=== PATIENT | female | born 1960 | race African-American/Black ===

== ENCOUNTER 2021-01-09 09:46 | Observation (INO) | payer OTHER ==
[2021-01-09 10:02] VITALS: BMI 25.9
[2021-01-09 10:50] LABS: BASO % 0.3 % (0-2.0); EOS % 0.4 % (0-4.5); HEMATOCRIT 28.6 % (32.4-45.2); HEMOGLOBIN 9.5 GM/dL (10.7-15.3); LYMPH % 14.9 % (8-40); MCH 26.3 pg (25.7-33.7); MCHC 33.3 g/dl (32.0-36.0); MEAN PLT VOLUME 8.6 fl (7.5-11.1); MONO % 13.5 % (3.8-10.2); NEUT % 70.9 % (42.8-82.8); PLATELET COUNT 185 10^3/uL (134-434); RBC 3.63 M/mm3 (3.60-5.2); RDW 15.5 % (11.6-15.6); WHITE BLOOD COUNT 4.5 K/mm3 (4.0-10.0)
[2021-01-09 10:57] LABS: PROTHROMBIN TIME (PATIENT) 12.3 SEC (9.7-13.0)
[2021-01-09 10:59] LABS: ACTIVATED PTT 27.4 SECONDS (25.2-36.5)
[2021-01-09 11:12] LABS: ALBUMIN 3.1 g/dl (3.4-5.0); BLOOD UREA NITROGEN 17.7 mg/dL (7-18); CALCIUM 9.2 mg/dL (8.5-10.1)
[2021-01-09 11:15] LABS: CREATININE 0.9 mg/dL (0.55-1.3)
[2021-01-09 11:17] LABS: BILIRUBIN,TOTAL 0.5 mg/dL (0.2-1)
[2021-01-09 13:54] LABS: EPI CELLS 6 /uL (0-25.1); HYALINE CASTS 1 /uL (0-3.1); PH,URINE 6.5 (5.0-8.0); URINE APPEARANCE CLEAR; URINE BACTERIA 47 /uL (0-1359); URINE BILIRUBIN NEGATIVE (NEGATIVE); URINE COLOR YELLOW; URINE GLUCOSE (UA) NEGATIVE (NEGATIVE); URINE KETONE TRACE (NEGATIVE); URINE LEUK ESTERASE NEGATIVE (NEGATIVE); URINE NITRITE NEGATIVE (NEGATIVE); URINE PROTEIN 2+ (NEGATIVE); URINE RBC 54 /uL (0-23.9); URINE UROBILINOGEN 0.2 mg/dL (0.2-1.0); URINE WBC 5 /uL (0-25.8)
[2021-01-09] MEDS ORDERED: ACETAMINOPHEN 325 MG TABLET (FP) PO PRN (14:20)
[2021-01-09] MEDS ORDERED: PT OWN MED DRAWER 7, Y5N ONE (21:03)
[2021-01-09] MEDS ORDERED: ATORVASTATIN CA 20 MG TABLET (FP) PO SCH (22:00)
[2021-01-09] MEDS: CARVEDILOL 25 MG TABLET (FP) PO SCH (22:02)
[2021-01-09] MEDS: HALOPERIDOL 5 MG TABLET PO SCH (22:02)
[2021-01-09] MEDS: cloNIDine HCL 0.1 MG TABLET PO SCH (22:02)
[2021-01-10] MEDS ORDERED: PT OWN MED DRAWER 7, Y5N ONE (08:44)
[2021-01-10] MEDS ORDERED: amLODIPine BESYLATE 5 MG TABLET (FP) PO SCH (10:00)
[2021-01-10] MEDS ORDERED: FAMOTIDINE 20 MG TABLET PO SCH (10:00)
[2021-01-10 10:10] LABS: SARS-CoV-2 NAA Detected (Not Detected)
[2021-01-10] MEDS: cloNIDine HCL 0.1 MG TABLET PO SCH (10:44)
[2021-01-10] MEDS: HALOPERIDOL 5 MG TABLET PO SCH (10:45)
[2021-01-10] MEDS: CARVEDILOL 25 MG TABLET (FP) PO SCH (10:45)
[2021-01-10 18:44] VITALS: BP 117/70; PULSE 99; TEMP 97.3
== END 2021-01-10 19:23 ==
LOC: JER 09:46 → JERBED 13:57 → J4W 15:26
PROVIDERS: ADMIT Internal Medicine; ATTEND Internal Medicine
DX: R40.4 Transient alteration of awareness (principal); I10 Essential (primary) hypertension; D50.9 Iron deficiency anemia, unspecified; Z79.01 Long term (current) use of anticoagulants; R47.1 Dysarthria and anarthria; G81.90 Hemiplegia, unspecified affecting unspecified side; W18.30XA Fall on same level, unspecified, initial encounter; Z91.81 History of falling; Y93.9 Activity, unspecified; Y92.129 Unspecified place in nursing home as the place of occurrence of the external cause; U07.1 COVID-19
CPT/HCPCS: 36415; 70450-TC; 71045-TC-FY; 72125-TC; 80053; 81003; 82962; 83605; 84484; 85025; 85610; 85730; 86769; 87040; 87086; 93005; 93010; 99285-25; C9803; G0378; J0735; U0003; U0005

== ENCOUNTER 2021-01-23 12:44 | Inpatient (IN) | payer OTHER ==
[2021-01-23] MEDS ORDERED: SODIUM CHLORIDE 1,932 ML IV ONE (13:18)
[2021-01-23] MEDS ORDERED: ACETAMINOPHEN 1000 MG/100 ML VIAL (NON FORMULARY) IVPB ONE (13:20)
[2021-01-23] MEDS ORDERED: PIPERACILLIN/TAZOB 4.5 GM 4.5 GM in DEXTROSE 5%-WATER 100 ML IVPB ONE (13:20)
[2021-01-23] MEDS ORDERED: VANCOMYCIN 1 GM PREMIX - 1 GM/200 ML BAG IVPB ONE (13:20)
[2021-01-23 13:23] VITALS: BMI 25.9
[2021-01-23] MEDS ORDERED: ACETAMINOPHEN INJECTION 100 ML IVPB ONE (13:53)
[2021-01-23 14:00] LABS: VENOUS BASE EXCESS -6.3 mmol/L (-2-2); VENOUS O2 SATURATION 51.3 % (70-80); VENOUS PCO2 36.5 mmHg (38-52); VENOUS PH 7.333 (7.310-7.410)
[2021-01-23 14:01] LABS: BASO % 0.1 % (0-2.0); EOS % 0.8 % (0-4.5); HEMATOCRIT 29.1 % (32.4-45.2); HEMOGLOBIN 9.2 GM/dL (10.7-15.3); MCH 26.3 pg (25.7-33.7); MCHC 31.8 g/dl (32.0-36.0); MEAN CELL VOLUME 82.6 fl (80-96); MEAN PLT VOLUME 8.6 fl (7.5-11.1); MONO % 5.5 % (3.8-10.2); NEUT % 85.6 % (42.8-82.8); PLATELET COUNT 270 10^3/uL (134-434); RBC 3.52 M/mm3 (3.60-5.2); RDW 16.5 % (11.6-15.6); WHITE BLOOD COUNT 8.1 K/mm3 (4.0-10.0)
[2021-01-23 14:05] LABS: INR 1.35 (0.83-1.09); PROTHROMBIN TIME (PATIENT) 16.5 SEC (9.7-13.0)
[2021-01-23 14:08] LABS: ACTIVATED PTT 28.6 SECONDS (25.2-36.5)
[2021-01-23 14:18] LABS: CHLORIDE 135 mmol/L (98-107)
[2021-01-23 14:20] LABS: CALCIUM 9.9 mg/dL (8.5-10.1)
[2021-01-23 14:21] LABS: ALBUMIN 2.5 g/dl (3.4-5.0); BLOOD UREA NITROGEN 42.2 mg/dL (7-18); CO2 20 mmol/L (21-32); GLUCOSE,RANDOM 153 mg/dL (74-106)
[2021-01-23 14:24] LABS: CREATININE 1.5 mg/dL (0.55-1.3); SGOT/AST 50 U/L (15-37); SGPT/ALT 45 U/L (13-61)
[2021-01-23 14:25] LABS: BILIRUBIN,TOTAL 0.5 mg/dL (0.2-1); TOT PROT 8.2 g/dl (6.4-8.2)
[2021-01-23 14:27] LABS: ALK PHOS 96 U/L (45-117)
[2021-01-23 14:38] LABS: ANION GAP 7 MMOL/L (8-16); SODIUM 162 mmol/L (136-145)
[2021-01-23] MEDS ORDERED: PIPERACILLIN/TAZOB 4.5 GM 4.5 GM/100 ML BAG IVPB ONE (14:43)
[2021-01-23] MEDS ORDERED: VANCOMYCIN 1 GRAM (PRE-DOCKED) 1,000 MG/250 ML BAG IVPB ONE (14:43)
[2021-01-23 15:27] LABS: PH,URINE 5.5 (5.0-8.0); URINE APPEARANCE CLEAR; URINE BILIRUBIN NEGATIVE (NEGATIVE); URINE COLOR YELLOW; URINE GLUCOSE (UA) NEGATIVE (NEGATIVE); URINE KETONE NEGATIVE (NEGATIVE); URINE LEUK ESTERASE NEGATIVE (NEGATIVE); URINE NITRITE NEGATIVE (NEGATIVE); URINE PROTEIN TRACE (NEGATIVE); URINE UROBILINOGEN 0.2 mg/dL (0.2-1.0)
[2021-01-23 17:40] LABS: CHLORIDE 139 mmol/L (98-107)
[2021-01-23 17:42] LABS: BLOOD UREA NITROGEN 39.4 mg/dL (7-18); CO2 18 mmol/L (21-32); MAGNESIUM 2.6 mg/dL (1.8-2.4)
[2021-01-23 17:43] LABS: GLUCOSE,RANDOM 160 mg/dL (74-106)
[2021-01-23 17:46] LABS: CREATININE 1.3 mg/dL (0.55-1.3); PHOSPHOROUS 3.5 mg/dL (2.5-4.9)
[2021-01-23 17:52] LABS: ANION GAP 6 MMOL/L (8-16); CALCIUM 8.3 mg/dL (8.5-10.1); SODIUM 163 mmol/L (136-145)
[2021-01-23] MEDS ORDERED: SODIUM CHLORIDE 0.45% 1,000 ML IV SCH (18:15)
[2021-01-23] MEDS ORDERED: BISACODYL 10 MG SUPP.RECT RC PRN (20:50)
[2021-01-23] MEDS ORDERED: ACETAMINOPHEN 325 MG TABLET (FP) PO PRN (20:50)
[2021-01-23] MEDS: CARVEDILOL 25 MG TABLET (FP) PO SCH (22:23)
[2021-01-23] MEDS: cloNIDine HCL 0.1 MG TABLET PO SCH (22:23)
[2021-01-23] MEDS: DOCUSATE SODIUM 100 MG CAPSULE (FP) PO SCH (22:23)
[2021-01-23] MEDS: HEPARIN NA (PORCINE) 5,000 UNITS/ML 1ML VIAL SQ SCH (22:23)
[2021-01-23] MEDS: HALOPERIDOL 5 MG TABLET PO SCH (22:23)
[2021-01-23] MEDS: ATORVASTATIN CA 20 MG TABLET (FP) PO SCH (22:24)
[2021-01-24 08:13] LABS: BASO % 0.3 % (0-2.0); EOS % 1.7 % (0-4.5); HEMATOCRIT 28.1 % (32.4-45.2); LYMPH % 6.4 % (8-40); MCH 25.9 pg (25.7-33.7); MCHC 32.1 g/dl (32.0-36.0); MEAN CELL VOLUME 80.8 fl (80-96); MEAN PLT VOLUME 8.5 fl (7.5-11.1); MONO % 4.4 % (3.8-10.2); NEUT % 87.2 % (42.8-82.8); PLATELET COUNT 242 10^3/uL (134-434); RBC 3.48 M/mm3 (3.60-5.2); RDW 16.6 % (11.6-15.6)
[2021-01-24 08:27] LABS: CHLORIDE 136 mmol/L (98-107)
[2021-01-24 08:29] LABS: ALBUMIN 2.4 g/dl (3.4-5.0)
[2021-01-24 08:30] LABS: BLOOD UREA NITROGEN 32.8 mg/dL (7-18); CO2 20 mmol/L (21-32); GLUCOSE,RANDOM 117 mg/dL (74-106)
[2021-01-24 08:33] LABS: SGOT/AST 38 U/L (15-37); SGPT/ALT 35 U/L (13-61)
[2021-01-24 08:34] LABS: BILIRUBIN,TOTAL 0.5 mg/dL (0.2-1); TOT PROT 7.5 g/dl (6.4-8.2)
[2021-01-24 08:35] LABS: ALK PHOS 85 U/L (45-117)
[2021-01-24 08:37] LABS: ANION GAP 5 MMOL/L (8-16); CALCIUM 9.8 mg/dL (8.5-10.1); SODIUM 161 mmol/L (136-145)
[2021-01-24] MEDS: ASPIRIN 81 MG CHEWABLE TABLETS PO SCH (10:53)
[2021-01-24] MEDS: FOLIC ACID 1 MG TABLET (FP) PO SCH (10:54)
[2021-01-24] MEDS: cloNIDine HCL 0.1 MG TABLET PO SCH (10:54)
[2021-01-24] MEDS: FAMOTIDINE 20 MG TABLET PO SCH (10:54)
[2021-01-24] MEDS: FERROUS SO4 325 MG TABLET (FP) PO SCH (10:54)
[2021-01-24] MEDS: MELATONIN 5 MG TABLETS PO SCH (10:54)
[2021-01-24] MEDS: amLODIPine BESYLATE 5 MG TABLET (FP) PO SCH (10:54)
[2021-01-24] MEDS: POLYETHYLENE GLYCOL (HEALTHYLAX) 3350 17 GM PACKET PO SCH (10:54)
[2021-01-24] MEDS: CYANOCOBALAMIN 1,000 MCG TABLET (FP) PO SCH (10:54)
[2021-01-24] MEDS: HALOPERIDOL 5 MG TABLET PO SCH ×2 (10:54→21:33)
[2021-01-24] MEDS: SENNOSIDES 8.8 MG/5 ML BULK BOTTLE PO SCH (10:54)
[2021-01-24] MEDS: CARVEDILOL 25 MG TABLET (FP) PO SCH ×2 (10:54→21:33)
[2021-01-24] MEDS: ASCORBIC ACID 500 MG TABLET (FP) PO SCH (10:55)
[2021-01-24] MEDS: HEPARIN NA (PORCINE) 5,000 UNITS/ML 1ML VIAL SQ SCH ×2 (11:11→21:34)
[2021-01-24] MEDS: DEXTROSE 5%-WATER - 1,000 ML IV SCH (11:38)
[2021-01-24] MEDS ORDERED: ACETAMINOPHEN 1000 MG/100 ML VIAL (NON FORMULARY) IVPB PRN (13:04)
[2021-01-24] MEDS ORDERED: CEFEPIME HCL 1 GM VIAL (RESTRICTED TO ID) ONE (17:08)
[2021-01-24] MEDS ORDERED: DEXTROSE 5%-WATER - 50 ML IVPB ONE (17:09)
[2021-01-24] MEDS: CEFEPIME 1 GM in DEXTROSE 5%-WATER - 1 GM/50 ML IVPB IVPB SCH (17:16)
[2021-01-24] MEDS ORDERED: PIPERACILLIN/TAZOB 3.375 GM 3.375 GM in DEXTROSE 5%-WATER - 50 ML IVPB SCH (18:00)
[2021-01-24] MEDS: cloNIDine-TTS 0.3 MG /24 HRS PATCH.TDWK TD SCH (21:33)
[2021-01-24] MEDS: DOCUSATE SODIUM 100 MG CAPSULE (FP) PO SCH (21:33)
[2021-01-24] MEDS: ATORVASTATIN CA 20 MG TABLET (FP) PO SCH (21:34)
[2021-01-25] MEDS ORDERED: CEFEPIME HCL 1 GM VIAL (RESTRICTED TO ID) ONE ×3 (01:11→17:18)
[2021-01-25] MEDS ORDERED: DEXTROSE 5%-WATER - 50 ML IVPB ONE ×3 (01:11→17:18)
[2021-01-25] MEDS: CEFEPIME 1 GM in DEXTROSE 5%-WATER - 1 GM/50 ML IVPB IVPB SCH ×3 (01:16→17:58)
[2021-01-25 10:04] LABS: CALCIUM 9.5 mg/dL (8.5-10.1)
[2021-01-25 10:05] LABS: ALBUMIN 2.2 g/dl (3.4-5.0); BLOOD UREA NITROGEN 36.9 mg/dL (7-18)
[2021-01-25 10:07] LABS: CREATININE 1.2 mg/dL (0.55-1.3)
[2021-01-25 10:09] LABS: BILIRUBIN,TOTAL 0.4 mg/dL (0.2-1); TOT PROT 7.2 g/dl (6.4-8.2)
[2021-01-25] MEDS: HEPARIN NA (PORCINE) 5,000 UNITS/ML 1ML VIAL SQ SCH (10:39)
[2021-01-25] MEDS: DEXTROSE 5%-WATER - 1,000 ML IV SCH (10:40)
[2021-01-25] MEDS: ASPIRIN 81 MG CHEWABLE TABLETS PO SCH (11:18)
[2021-01-25] MEDS: CARVEDILOL 25 MG TABLET (FP) PO SCH ×2 (11:18→22:19)
[2021-01-25] MEDS: FERROUS SO4 325 MG TABLET (FP) PO SCH (11:18)
[2021-01-25] MEDS: HALOPERIDOL 5 MG TABLET PO SCH ×2 (11:19→22:19)
[2021-01-25] MEDS: amLODIPine BESYLATE 5 MG TABLET (FP) PO SCH (11:19)
[2021-01-25] MEDS: FOLIC ACID 1 MG TABLET (FP) PO SCH (11:19)
[2021-01-25] MEDS: FAMOTIDINE 20 MG TABLET PO SCH (11:19)
[2021-01-25] MEDS: POLYETHYLENE GLYCOL (HEALTHYLAX) 3350 17 GM PACKET PO SCH (11:19)
[2021-01-25] MEDS: SENNOSIDES 8.8 MG/5 ML BULK BOTTLE PO SCH (11:19)
[2021-01-25] MEDS: MELATONIN 5 MG TABLETS PO SCH (11:19)
[2021-01-25] MEDS: ASCORBIC ACID 500 MG TABLET (FP) PO SCH (11:20)
[2021-01-25] MEDS: CYANOCOBALAMIN 1,000 MCG TABLET (FP) PO SCH (11:20)
[2021-01-25] MEDS ORDERED: REMDESIVIR 200 MG in SODIUM CHLORIDE 250 ML IVPB ONE (13:00)
[2021-01-25] MEDS: ENOXAPARIN NA (PORCINE) 40 MG/0.4 ML DISP.SYRIN SQ SCH (13:10)
[2021-01-25] MEDS: DEXAMETHASONE SOD PHOSPHATE 4 MG/1 ML VIAL IVPUSH SCH (13:10)
[2021-01-25] MEDS: POTASSIUM CHLORIDE 10 MEQ in DEXTROSE 5%-WATER - 1,000 ML IV SCH (17:57)
[2021-01-25] MEDS ORDERED: hydrALAZINE HCL 20 MG/ML VIAL IVPUSH PRN (18:25)
[2021-01-25] MEDS: hydrALAZINE HCL 20 MG/ML VIAL IVPUSH PRN (18:45)
[2021-01-25] MEDS: DOCUSATE SODIUM 100 MG CAPSULE (FP) PO SCH (22:19)
[2021-01-25] MEDS: ATORVASTATIN CA 20 MG TABLET (FP) PO SCH (22:19)
[2021-01-26] MEDS ORDERED: CEFEPIME HCL 1 GM VIAL (RESTRICTED TO ID) ONE ×3 (01:14→16:25)
[2021-01-26] MEDS ORDERED: DEXTROSE 5%-WATER - 50 ML IVPB ONE ×3 (01:14→16:25)
[2021-01-26] MEDS: CEFEPIME 1 GM in DEXTROSE 5%-WATER - 1 GM/50 ML IVPB IVPB SCH ×3 (01:30→17:10)
[2021-01-26] MEDS: POTASSIUM CHLORIDE 10 MEQ in DEXTROSE 5%-WATER - 1,000 ML IV SCH (06:15)
[2021-01-26] MEDS ORDERED: PT OWN MED DRAWER 7, Y5N ONE (10:27)
[2021-01-26] MEDS: DEXAMETHASONE SOD PHOSPHATE 4 MG/1 ML VIAL IVPUSH SCH (10:38)
[2021-01-26] MEDS: ENOXAPARIN NA (PORCINE) 40 MG/0.4 ML DISP.SYRIN SQ SCH (10:38)
[2021-01-26] MEDS: FOLIC ACID 1 MG TABLET (FP) PO SCH (10:47)
[2021-01-26] MEDS: FERROUS SO4 325 MG TABLET (FP) PO SCH (10:47)
[2021-01-26] MEDS: CARVEDILOL 25 MG TABLET (FP) PO SCH ×2 (10:47→22:44)
[2021-01-26] MEDS: ERGOCALCIFEROL (VIT D2) 50,000 UNIT (1.25 MG) CAPSULE PO SCH (10:47)
[2021-01-26] MEDS: ASPIRIN 81 MG CHEWABLE TABLETS PO SCH (10:47)
[2021-01-26] MEDS: ASCORBIC ACID 500 MG TABLET (FP) PO SCH (10:48)
[2021-01-26] MEDS: amLODIPine BESYLATE 5 MG TABLET (FP) PO SCH (10:48)
[2021-01-26] MEDS: FAMOTIDINE 20 MG TABLET PO SCH (10:48)
[2021-01-26] MEDS: POLYETHYLENE GLYCOL (HEALTHYLAX) 3350 17 GM PACKET PO SCH (10:48)
[2021-01-26] MEDS: HALOPERIDOL 5 MG TABLET PO SCH ×2 (10:48→22:44)
[2021-01-26] MEDS: CYANOCOBALAMIN 1,000 MCG TABLET (FP) PO SCH (10:48)
[2021-01-26] MEDS: SENNOSIDES 8.8 MG/5 ML BULK BOTTLE PO SCH (10:48)
[2021-01-26] MEDS: MELATONIN 5 MG TABLETS PO SCH (10:48)
[2021-01-26] MEDS: REMDESIVIR 100 MG in SODIUM CHLORIDE 250 ML IVPB SCH (12:17)
[2021-01-26 12:25] LABS: BASO % 1.1 % (0-2.0); EOS % 0.2 % (0-4.5); HEMATOCRIT 25.7 % (32.4-45.2); HEMOGLOBIN 8.3 GM/dL (10.7-15.3); LYMPH % 10.8 % (8-40); MCHC 32.2 g/dl (32.0-36.0); MEAN CELL VOLUME 80.7 fl (80-96); MEAN PLT VOLUME 9.2 fl (7.5-11.1); MONO % 4.8 % (3.8-10.2); NEUT % 83.1 % (42.8-82.8); PLATELET COUNT 208 10^3/uL (134-434); RBC 3.18 M/mm3 (3.60-5.2); RDW 16.4 % (11.6-15.6); WHITE BLOOD COUNT 3.3 K/mm3 (4.0-10.0)
[2021-01-26 12:44] LABS: ALBUMIN 2.2 g/dl (3.4-5.0); BLOOD UREA NITROGEN 41.4 mg/dL (7-18); CALCIUM 9.4 mg/dL (8.5-10.1)
[2021-01-26 12:45] LABS: MAGNESIUM 2.5 mg/dL (1.8-2.4)
[2021-01-26 12:47] LABS: CREATININE 1.1 mg/dL (0.55-1.3)
[2021-01-26 12:48] LABS: PHOSPHOROUS 2.9 mg/dL (2.5-4.9)
[2021-01-26 12:49] LABS: BILIRUBIN,TOTAL 0.5 mg/dL (0.2-1); TOT PROT 7.2 g/dl (6.4-8.2)
[2021-01-26] MEDS: AMINO ACIDS 4.25%/D5W 1,000 ML IV SCH (14:08)
[2021-01-26] MEDS: DOCUSATE SODIUM 100 MG CAPSULE (FP) PO SCH (22:00)
[2021-01-26] MEDS ORDERED: FAT EMULSIONS 20% 250 ML PREMIX INFUS.BAG IV SCH (22:00)
[2021-01-26] MEDS: ATORVASTATIN CA 20 MG TABLET (FP) PO SCH (22:45)
[2021-01-27] MEDS ORDERED: PT OWN MED DRAWER 7, Y5N ONE ×2 (01:17→08:44)
[2021-01-27] MEDS ORDERED: DEXTROSE 5%-WATER - 50 ML IVPB ONE ×3 (01:17→12:54)
[2021-01-27] MEDS ORDERED: CEFEPIME HCL 1 GM VIAL (RESTRICTED TO ID) ONE ×3 (01:17→12:54)
[2021-01-27] MEDS: AMINO ACIDS 4.25%/D5W 1,000 ML IV SCH ×2 (01:39→13:12)
[2021-01-27] MEDS: CEFEPIME 1 GM in DEXTROSE 5%-WATER - 1 GM/50 ML IVPB IVPB SCH ×3 (02:00→17:02)
[2021-01-27] MEDS: FAT EMULSIONS 250 ML IV SCH ×2 (02:21→21:56)
[2021-01-27 08:16] LABS: EOS % 0.5 % (0-4.5); LYMPH % 7.5 % (8-40); MCH 26.2 pg (25.7-33.7); MEAN CELL VOLUME 82.1 fl (80-96); MEAN PLT VOLUME 9.7 fl (7.5-11.1); MONO % 7.4 % (3.8-10.2); NEUT % 84.6 % (42.8-82.8); PLATELET COUNT 220 10^3/uL (134-434); RBC 3.04 M/mm3 (3.60-5.2); RDW 16.4 % (11.6-15.6); WHITE BLOOD COUNT 5.6 K/mm3 (4.0-10.0)
[2021-01-27 08:18] LABS: ALBUMIN 2.1 g/dl (3.4-5.0); BLOOD UREA NITROGEN 60.4 mg/dL (7-18); CALCIUM 9.1 mg/dL (8.5-10.1)
[2021-01-27 08:23] LABS: BILIRUBIN,TOTAL 0.3 mg/dL (0.2-1); TOT PROT 6.8 g/dl (6.4-8.2)
[2021-01-27] MEDS: ASPIRIN 81 MG CHEWABLE TABLETS PO SCH (09:16)
[2021-01-27] MEDS: CARVEDILOL 25 MG TABLET (FP) PO SCH ×2 (09:17→21:55)
[2021-01-27] MEDS: DEXAMETHASONE SOD PHOSPHATE 4 MG/1 ML VIAL IVPUSH SCH (09:17)
[2021-01-27] MEDS: HALOPERIDOL 5 MG TABLET PO SCH ×2 (09:17→21:56)
[2021-01-27] MEDS: FERROUS SO4 325 MG TABLET (FP) PO SCH (09:17)
[2021-01-27] MEDS: ENOXAPARIN NA (PORCINE) 40 MG/0.4 ML DISP.SYRIN SQ SCH (09:17)
[2021-01-27] MEDS: FOLIC ACID 1 MG TABLET (FP) PO SCH (09:17)
[2021-01-27] MEDS: POLYETHYLENE GLYCOL (HEALTHYLAX) 3350 17 GM PACKET PO SCH (09:17)
[2021-01-27] MEDS: FAMOTIDINE 20 MG TABLET PO SCH (09:18)
[2021-01-27] MEDS: SENNOSIDES 8.8 MG/5 ML BULK BOTTLE PO SCH (09:18)
[2021-01-27] MEDS: MELATONIN 5 MG TABLETS PO SCH (09:18)
[2021-01-27] MEDS: CYANOCOBALAMIN 1,000 MCG TABLET (FP) PO SCH (09:18)
[2021-01-27] MEDS: ASCORBIC ACID 500 MG TABLET (FP) PO SCH (09:18)
[2021-01-27] MEDS: amLODIPine BESYLATE 5 MG TABLET (FP) PO SCH (09:18)
[2021-01-27] MEDS: REMDESIVIR 100 MG in SODIUM CHLORIDE 250 ML IVPB SCH (13:12)
[2021-01-27] MEDS: hydrALAZINE HCL 20 MG/ML VIAL IVPUSH PRN ×2 (13:13→21:54)
[2021-01-27] MEDS: INSULIN SLIDING SCALE (NOVOLOG) 1 VIAL SQ SCH (16:19)
[2021-01-27] MEDS ORDERED: HALOPERIDOL LACTATE 5 MG/ML IM ONE (17:00)
[2021-01-27] MEDS ORDERED: HALOPERIDOL LACTATE 5 MG/ML ONE (17:13)
[2021-01-27] MEDS: DOCUSATE SODIUM 100 MG CAPSULE (FP) PO SCH (21:55)
[2021-01-27] MEDS: ATORVASTATIN CA 20 MG TABLET (FP) PO SCH (21:56)
[2021-01-28] MEDS ORDERED: CEFEPIME HCL 1 GM VIAL (RESTRICTED TO ID) ONE ×3 (01:03→17:32)
[2021-01-28] MEDS ORDERED: DEXTROSE 5%-WATER - 50 ML IVPB ONE ×3 (01:03→17:33)
[2021-01-28] MEDS: CEFEPIME 1 GM in DEXTROSE 5%-WATER - 1 GM/50 ML IVPB IVPB SCH ×3 (01:09→17:35)
[2021-01-28] MEDS: AMINO ACIDS 4.25%/D5W 1,000 ML IV SCH ×2 (01:09→15:12)
[2021-01-28] MEDS: INSULIN SLIDING SCALE (NOVOLOG) 1 VIAL SQ SCH ×2 (06:16→17:49)
[2021-01-28] MEDS: INSULIN (LEVEMIR) 100 UNITS/ML UNITS SQ SCH ×2 (11:00→11:13)
[2021-01-28] MEDS: ASPIRIN 81 MG CHEWABLE TABLETS PO SCH ×2 (11:00→11:11)
[2021-01-28] MEDS: CARVEDILOL 25 MG TABLET (FP) PO SCH ×3 (11:00→21:53)
[2021-01-28] MEDS: amLODIPine BESYLATE 5 MG TABLET (FP) PO SCH ×2 (11:00→11:12)
[2021-01-28] MEDS: FAMOTIDINE 20 MG TABLET PO SCH ×2 (11:00→11:12)
[2021-01-28] MEDS: HALOPERIDOL 5 MG TABLET PO SCH ×3 (11:00→21:54)
[2021-01-28] MEDS: FERROUS SO4 325 MG TABLET (FP) PO SCH ×2 (11:00→11:14)
[2021-01-28] MEDS: FOLIC ACID 1 MG TABLET (FP) PO SCH ×2 (11:00→11:11)
[2021-01-28] MEDS: POLYETHYLENE GLYCOL (HEALTHYLAX) 3350 17 GM PACKET PO SCH ×2 (11:00→11:12)
[2021-01-28] MEDS ORDERED: PT OWN MED DRAWER 7, Y5N ONE (11:02)
[2021-01-28] MEDS: DEXAMETHASONE SOD PHOSPHATE 4 MG/1 ML VIAL IVPUSH SCH (11:10)
[2021-01-28] MEDS: SENNOSIDES 8.8 MG/5 ML BULK BOTTLE PO SCH ×2 (11:10→13:23)
[2021-01-28] MEDS: ENOXAPARIN NA (PORCINE) 40 MG/0.4 ML DISP.SYRIN SQ SCH (11:11)
[2021-01-28] MEDS: CYANOCOBALAMIN 1,000 MCG TABLET (FP) PO SCH ×2 (11:11→13:23)
[2021-01-28] MEDS: ASCORBIC ACID 500 MG TABLET (FP) PO SCH ×2 (11:11→13:23)
[2021-01-28] MEDS: MELATONIN 5 MG TABLETS PO SCH (11:40)
[2021-01-28] MEDS: REMDESIVIR 100 MG in SODIUM CHLORIDE 250 ML IVPB SCH (13:17)
[2021-01-28] MEDS: hydrALAZINE HCL 20 MG/ML VIAL IVPUSH PRN (15:12)
[2021-01-28] MEDS ORDERED: SODIUM CHLORIDE 0.45%/POT 20 MEQ/1,000 ML INFUS.BAG IV SCH (16:15)
[2021-01-28] MEDS: DOCUSATE SODIUM 100 MG CAPSULE (FP) PO SCH (21:53)
[2021-01-28] MEDS: ATORVASTATIN CA 20 MG TABLET (FP) PO SCH (21:54)
[2021-01-28] MEDS: FAT EMULSIONS 250 ML IV SCH (21:54)
[2021-01-28] MEDS: HALOPERIDOL LACTATE 5 MG/ML IM PRN (21:55)
[2021-01-29] MEDS ORDERED: DEXTROSE 5%-WATER - 50 ML IVPB ONE ×3 (00:43→17:35)
[2021-01-29] MEDS ORDERED: CEFEPIME HCL 1 GM VIAL (RESTRICTED TO ID) ONE ×3 (00:43→17:35)
[2021-01-29] MEDS: CEFEPIME 1 GM in DEXTROSE 5%-WATER - 1 GM/50 ML IVPB IVPB SCH ×3 (01:30→17:37)
[2021-01-29] MEDS: hydrALAZINE HCL 20 MG/ML VIAL IVPUSH PRN ×2 (01:30→11:15)
[2021-01-29] MEDS: AMINO ACIDS 4.25%/D5W 1,000 ML IV SCH (01:30)
[2021-01-29] MEDS: INSULIN SLIDING SCALE (NOVOLOG) 1 VIAL SQ SCH ×2 (06:38→17:06)
[2021-01-29] MEDS: INSULIN (LEVEMIR) 100 UNITS/ML UNITS SQ SCH ×2 (06:38→23:33)
[2021-01-29 10:22] LABS: BASO % 0.4 % (0-2.0); EOS % 0.3 % (0-4.5); HEMATOCRIT 28.4 % (32.4-45.2); HEMOGLOBIN 9.5 GM/dL (10.7-15.3); LYMPH % 3.8 % (8-40); MCH 26.6 pg (25.7-33.7); MCHC 33.3 g/dl (32.0-36.0); MEAN PLT VOLUME 9.6 fl (7.5-11.1); MONO % 4.7 % (3.8-10.2); NEUT % 90.8 % (42.8-82.8); PLATELET COUNT 269 10^3/uL (134-434); RBC 3.55 M/mm3 (3.60-5.2); RDW 16.9 % (11.6-15.6); WHITE BLOOD COUNT 14.2 K/mm3 (4.0-10.0)
[2021-01-29 10:42] LABS: CALCIUM 9.7 mg/dL (8.5-10.1)
[2021-01-29 10:43] LABS: ALBUMIN 2.4 g/dl (3.4-5.0); BLOOD UREA NITROGEN 66.7 mg/dL (7-18)
[2021-01-29 10:46] LABS: CREATININE 0.9 mg/dL (0.55-1.3)
[2021-01-29 10:47] LABS: BILIRUBIN,TOTAL 0.5 mg/dL (0.2-1)
[2021-01-29 10:53] LABS: TOT PROT 7.1 g/dl (6.4-8.2)
[2021-01-29] MEDS: HALOPERIDOL 5 MG TABLET PO SCH (11:10)
[2021-01-29] MEDS: POLYETHYLENE GLYCOL (HEALTHYLAX) 3350 17 GM PACKET PO SCH (11:10)
[2021-01-29] MEDS: FERROUS SO4 325 MG TABLET (FP) PO SCH (11:10)
[2021-01-29] MEDS: FOLIC ACID 1 MG TABLET (FP) PO SCH (11:10)
[2021-01-29] MEDS: ASPIRIN 81 MG CHEWABLE TABLETS PO SCH (11:10)
[2021-01-29] MEDS: CARVEDILOL 25 MG TABLET (FP) PO SCH (11:10)
[2021-01-29] MEDS: CYANOCOBALAMIN 1,000 MCG TABLET (FP) PO SCH (11:11)
[2021-01-29] MEDS: amLODIPine BESYLATE 5 MG TABLET (FP) PO SCH (11:11)
[2021-01-29] MEDS: FAMOTIDINE 20 MG TABLET PO SCH (11:11)
[2021-01-29] MEDS: SENNOSIDES 8.8 MG/5 ML BULK BOTTLE PO SCH (11:11)
[2021-01-29] MEDS: ASCORBIC ACID 500 MG TABLET (FP) PO SCH (11:11)
[2021-01-29] MEDS: ENOXAPARIN NA (PORCINE) 40 MG/0.4 ML DISP.SYRIN SQ SCH (11:15)
[2021-01-29] MEDS: DEXAMETHASONE SOD PHOSPHATE 4 MG/1 ML VIAL IVPUSH SCH (11:15)
[2021-01-29 11:42] LABS: ANISOCYTOSIS 0; HELMET CELLS 0; HOWELL-JOLLY BODIES 0; MACROCYTOSIS 0; OVALOCYTE 0; PLATELET ESTIMATE NORMAL; ROULEAU 0; SICKELED CELLS 0; TARGET CELLS 0; TEAR DROP CELLS 0; TOXIC GRANULATION 0
[2021-01-29] MEDS ORDERED: PT OWN MED DRAWER 7, Y5N ONE ×3 (11:57→23:00)
[2021-01-29] MEDS: HALOPERIDOL LACTATE 5 MG/ML IM PRN (11:59)
[2021-01-29] MEDS: REMDESIVIR 100 MG in SODIUM CHLORIDE 250 ML IVPB SCH (12:00)
[2021-01-29] MEDS ORDERED: ACETAMINOPHEN 1000 MG/100 ML VIAL (NON FORMULARY) IVPB PRN (13:49)
[2021-01-29] MEDS ORDERED: SODIUM BICARBONATE 8.4% 50 MEQ/50 ML DISP.SYRIN IVPUSH ONE (15:16)
[2021-01-29] MEDS ORDERED: AMINO ACIDS 4.25%/D5W 1,000 ML IV SCH (15:17)
[2021-01-29] MEDS ORDERED: SODIUM CHLORIDE 0.45% 1,000 ML with SODIUM BICARBONATE 8.4% - 75 MEQ IV SCH ×2 (15:30→16:46)
[2021-01-29] MEDS ORDERED: SODIUM BICARBONATE 8.4% 50 MEQ/50 ML VIAL ONE (16:07)
[2021-01-29] MEDS: POTASSIUM CHLORIDE 20 MEQ in AMINO ACIDS 4.25%/D5W 1,000 ML IV SCH (17:24)
[2021-01-29] MEDS ORDERED: amLODIPine BESYLATE 5 MG TABLET (FP) GT SCH (18:51)
[2021-01-29] MEDS ORDERED: SODIUM BICARBONATE 8.4% 50 MEQ/50 ML VIAL IVPUSH ONE (19:00)
[2021-01-29] MEDS ORDERED: FAT EMULSION/OLIVE/SOY/PHOSPHO 250 ML IV SCH (22:00)
[2021-01-29] MEDS ORDERED: INSULIN (LEVEMIR) 100 UNITS/ML UNITS SQ SCH (22:00)
[2021-01-29] MEDS: CARVEDILOL 25 MG TABLET (FP) NGT SCH (23:05)
[2021-01-29] MEDS: HALOPERIDOL 5 MG TABLET NGT SCH (23:06)
[2021-01-29] MEDS: DOCUSATE SODIUM 100 MG CAPSULE (FP) PO SCH (23:06)
[2021-01-30] MEDS: ATORVASTATIN CA 20 MG TABLET (FP) PO SCH (01:49)
[2021-01-30] MEDS ORDERED: DEXTROSE 5%-WATER - 50 ML IVPB ONE ×3 (01:52→17:04)
[2021-01-30] MEDS ORDERED: CEFEPIME HCL 1 GM VIAL (RESTRICTED TO ID) ONE ×3 (01:52→17:04)
[2021-01-30] MEDS: CEFEPIME 1 GM in DEXTROSE 5%-WATER - 1 GM/50 ML IVPB IVPB SCH ×3 (01:56→17:07)
[2021-01-30] MEDS: POTASSIUM CHLORIDE 20 MEQ in AMINO ACIDS 4.25%/D5W 1,000 ML IV SCH (03:59)
[2021-01-30] MEDS: INSULIN (LEVEMIR) 100 UNITS/ML UNITS SQ SCH ×2 (06:36→21:44)
[2021-01-30] MEDS: INSULIN SLIDING SCALE (NOVOLOG) 1 VIAL SQ SCH ×2 (06:36→17:56)
[2021-01-30 07:44] LABS: ALBUMIN 2.1 g/dl (3.4-5.0); CALCIUM 9.4 mg/dL (8.5-10.1)
[2021-01-30 07:47] LABS: CREATININE 0.9 mg/dL (0.55-1.3)
[2021-01-30 07:48] LABS: BILIRUBIN,TOTAL 0.6 mg/dL (0.2-1)
[2021-01-30] MEDS ORDERED: SODIUM BICARBONATE 8.4% 50 MEQ/50 ML DISP.SYRIN IVPUSH SCH (08:00)
[2021-01-30 08:46] LABS: BLOOD UREA NITROGEN 76.7 mg/dL (7-18); TOT PROT 6.2 g/dl (6.4-8.2)
[2021-01-30 09:21] LABS: ARTERIAL BLD GAS O2 SATURATION 93.6 % (95-98); ARTERIAL BLOOD GAS BASE EXCESS -12.4 mmol/L (-2-2); ARTERIAL BLOOD GAS PO2 70.3 mmHg (80-100); ARTERIAL BLOOD GAS pH 7.336 (7.350-7.450)
[2021-01-30 09:22] LABS: ALLENS TEST POSITIVE
[2021-01-30] MEDS ORDERED: PT OWN MED DRAWER 7, Y5N ONE ×3 (09:38→21:34)
[2021-01-30] MEDS: FOLIC ACID 1 MG TABLET (FP) NGT SCH (09:42)
[2021-01-30] MEDS: amLODIPine BESYLATE 5 MG TABLET (FP) NGT SCH (09:42)
[2021-01-30] MEDS: FERROUS SO4 325 MG TABLET (FP) PO SCH (09:42)
[2021-01-30] MEDS: CYANOCOBALAMIN 1,000 MCG TABLET (FP) NGT SCH (09:42)
[2021-01-30] MEDS: ASPIRIN 81 MG CHEWABLE TABLETS NGT SCH (09:42)
[2021-01-30] MEDS: CARVEDILOL 25 MG TABLET (FP) NGT SCH ×2 (09:42→21:44)
[2021-01-30] MEDS: SENNOSIDES 8.8 MG/5 ML BULK BOTTLE NGT SCH (09:43)
[2021-01-30] MEDS: HALOPERIDOL 5 MG TABLET NGT SCH ×2 (09:43→21:44)
[2021-01-30] MEDS: DEXAMETHASONE SOD PHOSPHATE 4 MG/1 ML VIAL IVPUSH SCH (09:44)
[2021-01-30] MEDS: ENOXAPARIN NA (PORCINE) 40 MG/0.4 ML DISP.SYRIN SQ SCH (09:45)
[2021-01-30] MEDS: POLYETHYLENE GLYCOL (HEALTHYLAX) 3350 17 GM PACKET NGT SCH (09:45)
[2021-01-30] MEDS ORDERED: SODIUM BICARBONATE 8.4% - 50 MEQ in DEXTROSE 5%-WATER - 100 ML IVPB SCH (10:00)
[2021-01-30] MEDS: ASCORBIC ACID 500 MG/5 ML UNIT DOSE CUP NGT SCH (11:41)
[2021-01-30] MEDS: FAMOTIDINE 40 MG/5 ML ORAL SUSPENSION NGT SCH (11:41)
[2021-01-30] MEDS: SODIUM BICARBONATE 650 MG TABLET PO SCH ×2 (17:07→21:45)
[2021-01-30] MEDS: ATORVASTATIN CA 20 MG TABLET (FP) NGT SCH (21:44)
[2021-01-30] MEDS: DOCUSATE SODIUM 100 MG CAPSULE (FP) PO SCH (21:49)
[2021-01-31] MEDS ORDERED: CEFEPIME HCL 1 GM VIAL (RESTRICTED TO ID) ONE ×3 (01:45→16:25)
[2021-01-31] MEDS ORDERED: DEXTROSE 5%-WATER - 50 ML IVPB ONE ×3 (01:45→16:25)
[2021-01-31] MEDS: CEFEPIME 1 GM in DEXTROSE 5%-WATER - 1 GM/50 ML IVPB IVPB SCH ×3 (01:47→17:01)
[2021-01-31] MEDS: INSULIN (LEVEMIR) 100 UNITS/ML UNITS SQ SCH ×2 (06:30→22:23)
[2021-01-31] MEDS: SODIUM BICARBONATE 650 MG TABLET PO SCH ×3 (06:30→22:23)
[2021-01-31] MEDS: INSULIN SLIDING SCALE (NOVOLOG) 1 VIAL SQ SCH ×2 (06:31→16:46)
[2021-01-31] MEDS ORDERED: PT OWN MED DRAWER 7, Y5N ONE ×4 (09:10→22:19)
[2021-01-31] MEDS: amLODIPine BESYLATE 5 MG TABLET (FP) NGT SCH (09:15)
[2021-01-31] MEDS: CYANOCOBALAMIN 1,000 MCG TABLET (FP) NGT SCH (09:15)
[2021-01-31] MEDS: FOLIC ACID 1 MG TABLET (FP) NGT SCH (09:15)
[2021-01-31] MEDS: FERROUS SO4 325 MG TABLET (FP) PO SCH (09:15)
[2021-01-31] MEDS: CARVEDILOL 25 MG TABLET (FP) NGT SCH ×2 (09:15→22:22)
[2021-01-31] MEDS: ASPIRIN 81 MG CHEWABLE TABLETS NGT SCH (09:15)
[2021-01-31] MEDS: ENOXAPARIN NA (PORCINE) 40 MG/0.4 ML DISP.SYRIN SQ SCH (09:16)
[2021-01-31] MEDS: DEXAMETHASONE SOD PHOSPHATE 4 MG/1 ML VIAL IVPUSH SCH (09:16)
[2021-01-31] MEDS: POLYETHYLENE GLYCOL (HEALTHYLAX) 3350 17 GM PACKET NGT SCH (09:16)
[2021-01-31] MEDS: HALOPERIDOL 5 MG TABLET NGT SCH ×2 (09:17→22:29)
[2021-01-31] MEDS: FAMOTIDINE 40 MG/5 ML ORAL SUSPENSION NGT SCH (09:17)
[2021-01-31] MEDS: SENNOSIDES 8.8 MG/5 ML BULK BOTTLE NGT SCH (09:18)
[2021-01-31] MEDS ORDERED: ACETAMINOPHEN 1000 MG/100 ML VIAL (NON FORMULARY) IVPB PRN (11:20)
[2021-01-31] MEDS: ASCORBIC ACID 500 MG/5 ML UNIT DOSE CUP NGT SCH (12:21)
[2021-01-31] MEDS: COLLAGENASE CLOSTRIDIUM HIST. 30 GRAMS TUBE TP SCH (13:20)
[2021-01-31] MEDS ORDERED: ALBUTEROL SO4 2.5/IPRATROPIUM 0.5 INH SOL 3 ML VIAL.NEB. NEB PRN (13:31)
[2021-01-31] MEDS: DOCUSATE SODIUM 100 MG CAPSULE (FP) PO SCH (22:14)
[2021-01-31] MEDS: cloNIDine-TTS 0.3 MG /24 HRS PATCH.TDWK TD SCH (22:21)
[2021-01-31] MEDS: ATORVASTATIN CA 20 MG TABLET (FP) NGT SCH (22:23)
[2021-02-01] MEDS ORDERED: CEFEPIME HCL 1 GM VIAL (RESTRICTED TO ID) ONE ×3 (01:09→20:57)
[2021-02-01] MEDS ORDERED: DEXTROSE 5%-WATER - 50 ML IVPB ONE ×2 (01:10→10:08)
[2021-02-01] MEDS: CEFEPIME 1 GM in DEXTROSE 5%-WATER - 1 GM/50 ML IVPB IVPB SCH ×2 (01:14→10:50)
[2021-02-01] MEDS: SODIUM BICARBONATE 650 MG TABLET PO SCH ×3 (06:15→21:07)
[2021-02-01] MEDS: INSULIN (LEVEMIR) 100 UNITS/ML UNITS SQ SCH ×2 (06:15→21:07)
[2021-02-01] MEDS: INSULIN SLIDING SCALE (NOVOLOG) 1 VIAL SQ SCH ×2 (06:29→17:47)
[2021-02-01 07:44] LABS: BASO % 0.6 % (0-2.0); EOS % 0.2 % (0-4.5); HEMATOCRIT 22.5 % (32.4-45.2); HEMOGLOBIN 7.4 GM/dL (10.7-15.3); LYMPH % 3.7 % (8-40); MCH 26.1 pg (25.7-33.7); MEAN CELL VOLUME 79.1 fl (80-96); MEAN PLT VOLUME 9.9 fl (7.5-11.1); MONO % 5.7 % (3.8-10.2); NEUT % 89.8 % (42.8-82.8); PLATELET COUNT 168 10^3/uL (134-434); RBC 2.85 M/mm3 (3.60-5.2); RDW 17.2 % (11.6-15.6); WHITE BLOOD COUNT 12.1 K/mm3 (4.0-10.0)
[2021-02-01 08:12] LABS: BLOOD UREA NITROGEN 95.4 mg/dL (7-18); CALCIUM 9.9 mg/dL (8.5-10.1)
[2021-02-01 08:14] LABS: CREATININE 1.1 mg/dL (0.55-1.3)
[2021-02-01 08:16] LABS: BILIRUBIN,TOTAL 0.6 mg/dL (0.2-1)
[2021-02-01 09:10] LABS: ANISOCYTOSIS 0; HELMET CELLS 0; HOWELL-JOLLY BODIES 0; MACROCYTOSIS 0; OVALOCYTE 0; PLATELET ESTIMATE NORMAL; ROULEAU 0; SICKELED CELLS 0; TARGET CELLS 0; TEAR DROP CELLS 0; TOXIC GRANULATION 0
[2021-02-01] MEDS: DEXTROSE 5%-WATER - 1,000 ML IV SCH (10:48)
[2021-02-01] MEDS: ENOXAPARIN NA (PORCINE) 40 MG/0.4 ML DISP.SYRIN SQ SCH (10:49)
[2021-02-01] MEDS: POLYETHYLENE GLYCOL (HEALTHYLAX) 3350 17 GM PACKET NGT SCH (10:49)
[2021-02-01] MEDS: DEXAMETHASONE SOD PHOSPHATE 4 MG/1 ML VIAL IVPUSH SCH (10:50)
[2021-02-01] MEDS: FOLIC ACID 1 MG TABLET (FP) NGT SCH (10:51)
[2021-02-01] MEDS: ASPIRIN 81 MG CHEWABLE TABLETS NGT SCH (10:51)
[2021-02-01] MEDS: amLODIPine BESYLATE 5 MG TABLET (FP) NGT SCH (10:51)
[2021-02-01] MEDS: CYANOCOBALAMIN 1,000 MCG TABLET (FP) NGT SCH (10:51)
[2021-02-01] MEDS: FERROUS SO4 325 MG TABLET (FP) PO SCH (10:52)
[2021-02-01] MEDS: CARVEDILOL 25 MG TABLET (FP) NGT SCH ×2 (10:52→21:07)
[2021-02-01] MEDS: HALOPERIDOL 5 MG TABLET NGT SCH (10:52)
[2021-02-01] MEDS: SENNOSIDES 8.8 MG/5 ML BULK BOTTLE NGT SCH (10:52)
[2021-02-01] MEDS: ASCORBIC ACID 500 MG/5 ML UNIT DOSE CUP NGT SCH (10:52)
[2021-02-01] MEDS: COLLAGENASE CLOSTRIDIUM HIST. 30 GRAMS TUBE TP SCH (10:53)
[2021-02-01] MEDS: FAMOTIDINE 40 MG/5 ML ORAL SUSPENSION NGT SCH (10:53)
[2021-02-01] MEDS: AMINO ACIDS/PROTEIN HYDROLYS 30 ML LIQUID.PKT NGT SCH (17:47)
[2021-02-01] MEDS ORDERED: DEXTROSE 5%-WATER 100 ML IVPB ONE (20:58)
[2021-02-01] MEDS: ATORVASTATIN CA 20 MG TABLET (FP) NGT SCH (21:07)
[2021-02-01] MEDS: DOCUSATE SODIUM 100 MG CAPSULE (FP) PO SCH (21:08)
[2021-02-01] MEDS: CEFEPIME 1 GM in DEXTROSE 5%-WATER 1 GM/100 ML BAG IVPB SCH (21:08)
[2021-02-01] MEDS: METOCLOPRAMIDE HCL 10 MG/10 ML UNIT DOSE CUP PO SCH (21:10)
[2021-02-02] MEDS: DEXTROSE 5%-WATER - 1,000 ML IV SCH (01:53)
[2021-02-02] MEDS: SODIUM BICARBONATE 650 MG TABLET PO SCH ×3 (05:59→23:01)
[2021-02-02] MEDS: INSULIN SLIDING SCALE (NOVOLOG) 1 VIAL SQ SCH ×2 (05:59→17:03)
[2021-02-02] MEDS: INSULIN (LEVEMIR) 100 UNITS/ML UNITS SQ SCH ×2 (05:59→23:16)
[2021-02-02] MEDS: METOCLOPRAMIDE HCL 10 MG/10 ML UNIT DOSE CUP PO SCH ×3 (05:59→23:04)
[2021-02-02] MEDS ORDERED: DEXTROSE 5%-WATER 100 ML IVPB ONE ×2 (08:50→22:59)
[2021-02-02] MEDS ORDERED: CEFEPIME HCL 1 GM VIAL (RESTRICTED TO ID) ONE ×2 (08:50→22:59)
[2021-02-02] MEDS ORDERED: PT OWN MED DRAWER 7, Y5N ONE (08:50)
[2021-02-02] MEDS: AMINO ACIDS/PROTEIN HYDROLYS 30 ML LIQUID.PKT NGT SCH ×2 (08:53→17:00)
[2021-02-02] MEDS: CEFEPIME 1 GM in DEXTROSE 5%-WATER 1 GM/100 ML BAG IVPB SCH ×2 (09:00→23:05)
[2021-02-02] MEDS: POLYETHYLENE GLYCOL (HEALTHYLAX) 3350 17 GM PACKET NGT SCH (09:00)
[2021-02-02] MEDS: amLODIPine BESYLATE 5 MG TABLET (FP) NGT SCH (09:01)
[2021-02-02] MEDS: FOLIC ACID 1 MG TABLET (FP) NGT SCH (09:01)
[2021-02-02] MEDS: CYANOCOBALAMIN 1,000 MCG TABLET (FP) NGT SCH (09:01)
[2021-02-02] MEDS: ASPIRIN 81 MG CHEWABLE TABLETS NGT SCH (09:01)
[2021-02-02] MEDS: FERROUS SO4 325 MG TABLET (FP) PO SCH (09:01)
[2021-02-02] MEDS: DEXAMETHASONE SOD PHOSPHATE 4 MG/1 ML VIAL IVPUSH SCH (09:01)
[2021-02-02] MEDS: CARVEDILOL 25 MG TABLET (FP) NGT SCH ×2 (09:01→23:01)
[2021-02-02] MEDS: SENNOSIDES 8.8 MG/5 ML BULK BOTTLE NGT SCH (09:02)
[2021-02-02] MEDS: FAMOTIDINE 40 MG/5 ML ORAL SUSPENSION NGT SCH (09:02)
[2021-02-02] MEDS: COLLAGENASE CLOSTRIDIUM HIST. 30 GRAMS TUBE TP SCH (09:02)
[2021-02-02] MEDS: ASCORBIC ACID 500 MG/5 ML UNIT DOSE CUP NGT SCH (09:03)
[2021-02-02] MEDS: ERGOCALCIFEROL (VIT D2) 50,000 UNIT (1.25 MG) CAPSULE PO SCH (09:03)
[2021-02-02] MEDS: SODIUM CHLORIDE 0.45% 1,000 ML IV SCH (12:40)
[2021-02-02] MEDS: ATORVASTATIN CA 20 MG TABLET (FP) NGT SCH (23:01)
[2021-02-02] MEDS: DOCUSATE SODIUM 100 MG CAPSULE (FP) PO SCH (23:06)
[2021-02-03] MEDS: SODIUM CHLORIDE 0.45% 1,000 ML IV SCH ×2 (01:18→13:01)
[2021-02-03] MEDS: SODIUM BICARBONATE 650 MG TABLET PO SCH ×3 (02:30→21:12)
[2021-02-03] MEDS: METOCLOPRAMIDE HCL 10 MG/10 ML UNIT DOSE CUP PO SCH ×3 (05:33→21:12)
[2021-02-03] MEDS: INSULIN (LEVEMIR) 100 UNITS/ML UNITS SQ SCH ×2 (07:03→21:12)
[2021-02-03] MEDS: INSULIN SLIDING SCALE (NOVOLOG) 1 VIAL SQ SCH ×2 (07:03→16:49)
[2021-02-03 08:29] LABS: CALCIUM 8.7 mg/dL (8.5-10.1)
[2021-02-03 08:30] LABS: ALBUMIN 1.8 g/dl (3.4-5.0); BLOOD UREA NITROGEN 81.3 mg/dL (7-18)
[2021-02-03 08:33] LABS: BILIRUBIN,TOTAL 0.5 mg/dL (0.2-1); CREATININE 0.9 mg/dL (0.55-1.3); TOT PROT 5.4 g/dl (6.4-8.2)
[2021-02-03] MEDS ORDERED: CEFEPIME HCL 1 GM VIAL (RESTRICTED TO ID) ONE ×2 (11:34→21:10)
[2021-02-03] MEDS ORDERED: DEXTROSE 5%-WATER 100 ML IVPB ONE ×2 (11:34→21:10)
[2021-02-03] MEDS: amLODIPine BESYLATE 5 MG TABLET (FP) NGT SCH (11:37)
[2021-02-03] MEDS: DEXAMETHASONE SOD PHOSPHATE 4 MG/1 ML VIAL IVPUSH SCH (11:37)
[2021-02-03] MEDS: FOLIC ACID 1 MG TABLET (FP) NGT SCH (11:37)
[2021-02-03] MEDS: FERROUS SO4 325 MG TABLET (FP) PO SCH (11:37)
[2021-02-03] MEDS: ASPIRIN 81 MG CHEWABLE TABLETS NGT SCH (11:37)
[2021-02-03] MEDS: CYANOCOBALAMIN 1,000 MCG TABLET (FP) NGT SCH (11:37)
[2021-02-03] MEDS: CARVEDILOL 25 MG TABLET (FP) NGT SCH ×2 (11:37→21:12)
[2021-02-03] MEDS: POLYETHYLENE GLYCOL (HEALTHYLAX) 3350 17 GM PACKET NGT SCH (11:38)
[2021-02-03] MEDS: COLLAGENASE CLOSTRIDIUM HIST. 30 GRAMS TUBE TP SCH (11:38)
[2021-02-03] MEDS: FAMOTIDINE 40 MG/5 ML ORAL SUSPENSION NGT SCH (11:38)
[2021-02-03] MEDS: AMINO ACIDS/PROTEIN HYDROLYS 30 ML LIQUID.PKT NGT SCH ×2 (11:38→16:44)
[2021-02-03] MEDS: ASCORBIC ACID 500 MG/5 ML UNIT DOSE CUP NGT SCH (11:39)
[2021-02-03] MEDS: SENNOSIDES 8.8 MG/5 ML BULK BOTTLE NGT SCH (11:39)
[2021-02-03] MEDS: CEFEPIME 1 GM in DEXTROSE 5%-WATER 1 GM/100 ML BAG IVPB SCH ×2 (11:39→21:13)
[2021-02-03] MEDS: ATORVASTATIN CA 20 MG TABLET (FP) NGT SCH (21:12)
[2021-02-03] MEDS: DOCUSATE NA 100 MG/10 ML UNIT-DOSE CUPS GT SCH (21:12)
[2021-02-04] MEDS ORDERED: ACETAMINOPHEN 650 MG/20.3 ML ORAL SOLUTION (CUPS) PO PRN (01:44)
[2021-02-04] MEDS: ACETAMINOPHEN 650 MG/20.3 ML ORAL SOLUTION (CUPS) NGT PRN ×2 (01:56→18:38)
[2021-02-04] MEDS: SODIUM CHLORIDE 0.45% 1,000 ML IV SCH ×2 (05:06→14:34)
[2021-02-04] MEDS: SODIUM BICARBONATE 650 MG TABLET PO SCH ×3 (05:06→21:04)
[2021-02-04] MEDS: METOCLOPRAMIDE HCL 10 MG/10 ML UNIT DOSE CUP PO SCH ×3 (05:07→21:03)
[2021-02-04] MEDS: INSULIN SLIDING SCALE (NOVOLOG) 1 VIAL SQ SCH ×2 (06:13→16:56)
[2021-02-04] MEDS: INSULIN (LEVEMIR) 100 UNITS/ML UNITS SQ SCH ×2 (06:13→21:21)
[2021-02-04] MEDS ORDERED: DEXTROSE 5%-WATER 100 ML IVPB ONE (10:46)
[2021-02-04] MEDS ORDERED: CEFEPIME HCL 1 GM VIAL (RESTRICTED TO ID) ONE (10:46)
[2021-02-04] MEDS: CEFEPIME 1 GM in DEXTROSE 5%-WATER 1 GM/100 ML BAG IVPB SCH (11:00)
[2021-02-04] MEDS: FERROUS SO4 325 MG TABLET (FP) PO SCH (11:01)
[2021-02-04] MEDS: ASPIRIN 81 MG CHEWABLE TABLETS NGT SCH (11:01)
[2021-02-04] MEDS: AMINO ACIDS/PROTEIN HYDROLYS 30 ML LIQUID.PKT NGT SCH ×2 (11:01→17:00)
[2021-02-04] MEDS: FOLIC ACID 1 MG TABLET (FP) NGT SCH (11:01)
[2021-02-04] MEDS: CARVEDILOL 25 MG TABLET (FP) NGT SCH ×2 (11:01→21:03)
[2021-02-04] MEDS: amLODIPine BESYLATE 5 MG TABLET (FP) NGT SCH (11:01)
[2021-02-04] MEDS: CYANOCOBALAMIN 1,000 MCG TABLET (FP) NGT SCH (11:01)
[2021-02-04] MEDS: DEXAMETHASONE SOD PHOSPHATE 4 MG/1 ML VIAL IVPUSH SCH (11:01)
[2021-02-04] MEDS: POLYETHYLENE GLYCOL (HEALTHYLAX) 3350 17 GM PACKET NGT SCH (11:02)
[2021-02-04] MEDS: ASCORBIC ACID 500 MG/5 ML UNIT DOSE CUP NGT SCH (11:02)
[2021-02-04] MEDS: SENNOSIDES 8.8 MG/5 ML BULK BOTTLE NGT SCH (11:02)
[2021-02-04] MEDS: FAMOTIDINE 40 MG/5 ML ORAL SUSPENSION NGT SCH (11:02)
[2021-02-04] MEDS: COLLAGENASE CLOSTRIDIUM HIST. 30 GRAMS TUBE TP SCH (11:02)
[2021-02-04] MEDS: ATORVASTATIN CA 20 MG TABLET (FP) NGT SCH (21:03)
[2021-02-04] MEDS: DOCUSATE NA 100 MG/10 ML UNIT-DOSE CUPS GT SCH (21:03)
[2021-02-05] MEDS: ACETAMINOPHEN 650 MG/20.3 ML ORAL SOLUTION (CUPS) NGT PRN ×2 (02:57→17:28)
[2021-02-05] MEDS: INSULIN (LEVEMIR) 100 UNITS/ML UNITS SQ SCH ×2 (06:09→23:09)
[2021-02-05] MEDS: METOCLOPRAMIDE HCL 10 MG/10 ML UNIT DOSE CUP PO SCH ×3 (06:09→23:10)
[2021-02-05] MEDS: SODIUM BICARBONATE 650 MG TABLET PO SCH ×3 (06:09→23:11)
[2021-02-05] MEDS: INSULIN SLIDING SCALE (NOVOLOG) 1 VIAL SQ SCH ×2 (06:10→17:45)
[2021-02-05] MEDS: CYANOCOBALAMIN 1,000 MCG TABLET (FP) NGT SCH (09:47)
[2021-02-05] MEDS: FOLIC ACID 1 MG TABLET (FP) NGT SCH (09:47)
[2021-02-05] MEDS: CARVEDILOL 25 MG TABLET (FP) NGT SCH ×2 (09:47→23:07)
[2021-02-05] MEDS: AMINO ACIDS/PROTEIN HYDROLYS 30 ML LIQUID.PKT NGT SCH ×2 (09:47→17:27)
[2021-02-05] MEDS: FERROUS SO4 325 MG TABLET (FP) PO SCH (09:47)
[2021-02-05] MEDS: amLODIPine BESYLATE 5 MG TABLET (FP) NGT SCH (09:47)
[2021-02-05] MEDS: ASPIRIN 81 MG CHEWABLE TABLETS NGT SCH (09:47)
[2021-02-05] MEDS: DEXAMETHASONE SOD PHOSPHATE 4 MG/1 ML VIAL IVPUSH SCH (09:47)
[2021-02-05] MEDS: POLYETHYLENE GLYCOL (HEALTHYLAX) 3350 17 GM PACKET NGT SCH (09:48)
[2021-02-05] MEDS: COLLAGENASE CLOSTRIDIUM HIST. 30 GRAMS TUBE TP SCH (09:48)
[2021-02-05] MEDS: FAMOTIDINE 40 MG/5 ML ORAL SUSPENSION NGT SCH (09:48)
[2021-02-05] MEDS: SENNOSIDES 8.8 MG/5 ML BULK BOTTLE NGT SCH (09:48)
[2021-02-05] MEDS: ASCORBIC ACID 500 MG/5 ML UNIT DOSE CUP NGT SCH (09:49)
[2021-02-05 11:23] LABS: BASO % 0.1 % (0-2.0); EOS % 1.8 % (0-4.5); HEMATOCRIT 21.6 % (32.4-45.2); LYMPH % 3.3 % (8-40); MCH 27.1 pg (25.7-33.7); MCHC 32.5 g/dl (32.0-36.0); MEAN CELL VOLUME 83.4 fl (80-96); MEAN PLT VOLUME 10.4 fl (7.5-11.1); MONO % 5.3 % (3.8-10.2); NEUT % 89.5 % (42.8-82.8); PLATELET COUNT 175 10^3/uL (134-434); RBC 2.58 M/mm3 (3.60-5.2); RDW 18.6 % (11.6-15.6)
[2021-02-05 11:58] LABS: ALBUMIN 1.8 g/dl (3.4-5.0); BILIRUBIN,TOTAL 0.4 mg/dL (0.2-1); CALCIUM 8.7 mg/dL (8.5-10.1); CREATININE 0.7 mg/dL (0.55-1.3); TOT PROT 5.4 g/dl (6.4-8.2)
[2021-02-05 12:57] LABS: ANISOCYTOSIS 1+; MACROCYTOSIS 0; PLATELET ESTIMATE NORMAL
[2021-02-05] MEDS: SODIUM CHLORIDE 0.45% 1,000 ML IV SCH (17:45)
[2021-02-05] MEDS: DOCUSATE NA 100 MG/10 ML UNIT-DOSE CUPS GT SCH (23:07)
[2021-02-05] MEDS: ATORVASTATIN CA 20 MG TABLET (FP) NGT SCH (23:10)
[2021-02-06] MEDS: METOCLOPRAMIDE HCL 10 MG/10 ML UNIT DOSE CUP PO SCH ×3 (06:32→21:35)
[2021-02-06] MEDS: INSULIN SLIDING SCALE (NOVOLOG) 1 VIAL SQ SCH ×2 (06:32→17:14)
[2021-02-06] MEDS: SODIUM BICARBONATE 650 MG TABLET PO SCH ×3 (06:32→21:35)
[2021-02-06] MEDS: INSULIN (LEVEMIR) 100 UNITS/ML UNITS SQ SCH ×2 (06:32→21:33)
[2021-02-06] MEDS: AMINO ACIDS/PROTEIN HYDROLYS 30 ML LIQUID.PKT NGT SCH ×2 (08:53→17:15)
[2021-02-06] MEDS: ASPIRIN 81 MG CHEWABLE TABLETS NGT SCH (10:52)
[2021-02-06] MEDS: CYANOCOBALAMIN 1,000 MCG TABLET (FP) NGT SCH (10:52)
[2021-02-06] MEDS: FOLIC ACID 1 MG TABLET (FP) NGT SCH (10:52)
[2021-02-06] MEDS ORDERED: PT OWN MED DRAWER 7, Y5N ONE (10:52)
[2021-02-06] MEDS: POLYETHYLENE GLYCOL (HEALTHYLAX) 3350 17 GM PACKET NGT SCH (10:52)
[2021-02-06] MEDS: amLODIPine BESYLATE 5 MG TABLET (FP) NGT SCH (10:53)
[2021-02-06] MEDS: FERROUS SO4 325 MG TABLET (FP) PO SCH (10:53)
[2021-02-06] MEDS: CARVEDILOL 25 MG TABLET (FP) NGT SCH ×2 (10:53→21:35)
[2021-02-06] MEDS: DEXAMETHASONE SOD PHOSPHATE 4 MG/1 ML VIAL IVPUSH SCH (10:53)
[2021-02-06] MEDS: FAMOTIDINE 40 MG/5 ML ORAL SUSPENSION NGT SCH (10:53)
[2021-02-06] MEDS: COLLAGENASE CLOSTRIDIUM HIST. 30 GRAMS TUBE TP SCH (10:54)
[2021-02-06] MEDS: ASCORBIC ACID 500 MG/5 ML UNIT DOSE CUP NGT SCH (10:54)
[2021-02-06] MEDS: SENNOSIDES 8.8 MG/5 ML BULK BOTTLE NGT SCH (10:54)
[2021-02-06] MEDS: SODIUM CHLORIDE 0.45% 1,000 ML IV SCH (15:00)
[2021-02-06] MEDS: ATORVASTATIN CA 20 MG TABLET (FP) NGT SCH (21:35)
[2021-02-06] MEDS: DOCUSATE NA 100 MG/10 ML UNIT-DOSE CUPS GT SCH (21:35)
[2021-02-07] MEDS: METOCLOPRAMIDE HCL 10 MG/10 ML UNIT DOSE CUP PO SCH ×3 (06:49→21:41)
[2021-02-07] MEDS: SODIUM BICARBONATE 650 MG TABLET PO SCH ×3 (06:49→21:40)
[2021-02-07] MEDS: INSULIN (LEVEMIR) 100 UNITS/ML UNITS SQ SCH ×2 (06:49→21:41)
[2021-02-07] MEDS: INSULIN SLIDING SCALE (NOVOLOG) 1 VIAL SQ SCH ×2 (06:50→18:25)
[2021-02-07] MEDS ORDERED: PT OWN MED DRAWER 7, Y5N ONE ×4 (09:02→21:40)
[2021-02-07] MEDS: ASCORBIC ACID 500 MG/5 ML UNIT DOSE CUP NGT SCH (09:26)
[2021-02-07] MEDS: ASPIRIN 81 MG CHEWABLE TABLETS NGT SCH (09:26)
[2021-02-07] MEDS: SENNOSIDES 8.8 MG/5 ML BULK BOTTLE NGT SCH (09:26)
[2021-02-07] MEDS: AMINO ACIDS/PROTEIN HYDROLYS 30 ML LIQUID.PKT NGT SCH ×2 (09:27→18:25)
[2021-02-07] MEDS: DEXAMETHASONE SOD PHOSPHATE 4 MG/1 ML VIAL IVPUSH SCH (09:27)
[2021-02-07] MEDS: POLYETHYLENE GLYCOL (HEALTHYLAX) 3350 17 GM PACKET NGT SCH (09:27)
[2021-02-07] MEDS: CARVEDILOL 25 MG TABLET (FP) NGT SCH ×2 (09:28→21:40)
[2021-02-07] MEDS: FOLIC ACID 1 MG TABLET (FP) NGT SCH (09:28)
[2021-02-07] MEDS: CYANOCOBALAMIN 1,000 MCG TABLET (FP) NGT SCH (09:28)
[2021-02-07] MEDS: FERROUS SO4 325 MG TABLET (FP) PO SCH (09:28)
[2021-02-07] MEDS: amLODIPine BESYLATE 5 MG TABLET (FP) NGT SCH (09:34)
[2021-02-07 11:57] LABS: HEMATOCRIT 21.8 % (32.4-45.2); HEMOGLOBIN 7.1 GM/dL (10.7-15.3); MCH 26.6 pg (25.7-33.7); MCHC 32.5 g/dl (32.0-36.0); MEAN CELL VOLUME 81.8 fl (80-96); MEAN PLT VOLUME 9.8 fl (7.5-11.1); PLATELET COUNT 154 10^3/uL (134-434); RBC 2.66 M/mm3 (3.60-5.2); RDW 18.7 % (11.6-15.6); WHITE BLOOD COUNT 13.8 K/mm3 (4.0-10.0)
[2021-02-07 12:18] LABS: CALCIUM 9.2 mg/dL (8.5-10.1)
[2021-02-07 12:19] LABS: ALBUMIN 1.9 g/dl (3.4-5.0); BLOOD UREA NITROGEN 58.6 mg/dL (7-18)
[2021-02-07 12:22] LABS: CREATININE 0.8 mg/dL (0.55-1.3)
[2021-02-07] MEDS: FAMOTIDINE 40 MG/5 ML ORAL SUSPENSION NGT SCH (12:23)
[2021-02-07 12:24] LABS: BILIRUBIN,TOTAL 0.4 mg/dL (0.2-1); TOT PROT 5.2 g/dl (6.4-8.2)
[2021-02-07] MEDS: COLLAGENASE CLOSTRIDIUM HIST. 30 GRAMS TUBE TP SCH (15:23)
[2021-02-07] MEDS: ATORVASTATIN CA 20 MG TABLET (FP) NGT SCH (21:40)
[2021-02-07] MEDS: cloNIDine-TTS 0.3 MG /24 HRS PATCH.TDWK TD SCH (21:41)
[2021-02-07] MEDS: HEPARIN NA (PORCINE) 5,000 UNITS/ML 1ML VIAL SQ SCH (21:41)
[2021-02-07] MEDS: DOCUSATE NA 100 MG/10 ML UNIT-DOSE CUPS GT SCH (21:41)
[2021-02-08] MEDS: SODIUM BICARBONATE 650 MG TABLET PO SCH ×3 (06:14→22:04)
[2021-02-08] MEDS: METOCLOPRAMIDE HCL 10 MG/10 ML UNIT DOSE CUP PO SCH ×3 (06:14→22:04)
[2021-02-08] MEDS: INSULIN SLIDING SCALE (NOVOLOG) 1 VIAL SQ SCH ×2 (06:16→16:59)
[2021-02-08] MEDS: INSULIN (LEVEMIR) 100 UNITS/ML UNITS SQ SCH ×3 (06:16→22:15)
[2021-02-08] MEDS ORDERED: PT OWN MED DRAWER 7, Y5N ONE (08:52)
[2021-02-08] MEDS: amLODIPine BESYLATE 5 MG TABLET (FP) NGT SCH (09:16)
[2021-02-08] MEDS: HEPARIN NA (PORCINE) 5,000 UNITS/ML 1ML VIAL SQ SCH ×2 (09:16→22:04)
[2021-02-08] MEDS: CYANOCOBALAMIN 1,000 MCG TABLET (FP) NGT SCH (09:16)
[2021-02-08] MEDS: FOLIC ACID 1 MG TABLET (FP) NGT SCH (09:16)
[2021-02-08] MEDS: CARVEDILOL 25 MG TABLET (FP) NGT SCH ×2 (09:16→22:04)
[2021-02-08] MEDS: DEXAMETHASONE SOD PHOSPHATE 4 MG/1 ML VIAL IVPUSH SCH (09:19)
[2021-02-08] MEDS: FERROUS SO4 325 MG TABLET (FP) PO SCH (09:23)
[2021-02-08] MEDS: FAMOTIDINE 40 MG/5 ML ORAL SUSPENSION NGT SCH (09:23)
[2021-02-08] MEDS: AMINO ACIDS/PROTEIN HYDROLYS 30 ML LIQUID.PKT NGT SCH ×2 (09:23→17:41)
[2021-02-08] MEDS: POLYETHYLENE GLYCOL (HEALTHYLAX) 3350 17 GM PACKET NGT SCH (09:23)
[2021-02-08] MEDS: SENNOSIDES 8.8 MG/5 ML BULK BOTTLE NGT SCH (09:24)
[2021-02-08] MEDS: COLLAGENASE CLOSTRIDIUM HIST. 30 GRAMS TUBE TP SCH (09:24)
[2021-02-08] MEDS: ASCORBIC ACID 500 MG/5 ML UNIT DOSE CUP NGT SCH (09:25)
[2021-02-08] MEDS: DOCUSATE NA 100 MG/10 ML UNIT-DOSE CUPS GT SCH (22:04)
[2021-02-08] MEDS: ATORVASTATIN CA 20 MG TABLET (FP) NGT SCH (22:04)
[2021-02-09] MEDS: METOCLOPRAMIDE HCL 10 MG/10 ML UNIT DOSE CUP PO SCH ×3 (06:26→22:42)
[2021-02-09] MEDS: SODIUM BICARBONATE 650 MG TABLET PO SCH ×3 (06:26→22:36)
[2021-02-09] MEDS: INSULIN SLIDING SCALE (NOVOLOG) 1 VIAL SQ SCH ×2 (06:33→16:51)
[2021-02-09] MEDS: INSULIN (LEVEMIR) 100 UNITS/ML UNITS SQ SCH ×2 (06:34→22:47)
[2021-02-09] MEDS ORDERED: PT OWN MED DRAWER 7, Y5N ONE (08:35)
[2021-02-09] MEDS: amLODIPine BESYLATE 5 MG TABLET (FP) NGT SCH (09:26)
[2021-02-09] MEDS: AMINO ACIDS/PROTEIN HYDROLYS 30 ML LIQUID.PKT NGT SCH ×2 (09:26→17:32)
[2021-02-09] MEDS: CYANOCOBALAMIN 1,000 MCG TABLET (FP) NGT SCH (09:26)
[2021-02-09] MEDS: FERROUS SO4 325 MG TABLET (FP) PO SCH (09:26)
[2021-02-09] MEDS: POLYETHYLENE GLYCOL (HEALTHYLAX) 3350 17 GM PACKET NGT SCH (09:26)
[2021-02-09] MEDS: CARVEDILOL 25 MG TABLET (FP) NGT SCH ×2 (09:26→22:36)
[2021-02-09] MEDS: FOLIC ACID 1 MG TABLET (FP) NGT SCH (09:26)
[2021-02-09] MEDS: SENNOSIDES 8.8 MG/5 ML BULK BOTTLE NGT SCH (09:27)
[2021-02-09] MEDS: FAMOTIDINE 40 MG/5 ML ORAL SUSPENSION NGT SCH (09:27)
[2021-02-09] MEDS: ASCORBIC ACID 500 MG/5 ML UNIT DOSE CUP NGT SCH (09:27)
[2021-02-09] MEDS: ERGOCALCIFEROL (VIT D2) 50,000 UNIT (1.25 MG) CAPSULE PO SCH ×2 (09:28→09:56)
[2021-02-09] MEDS: HEPARIN NA (PORCINE) 5,000 UNITS/ML 1ML VIAL SQ SCH (09:29)
[2021-02-09] MEDS: COLLAGENASE CLOSTRIDIUM HIST. 30 GRAMS TUBE TP SCH (09:29)
[2021-02-09] MEDS: ATORVASTATIN CA 20 MG TABLET (FP) NGT SCH (22:36)
[2021-02-09] MEDS: DOCUSATE NA 100 MG/10 ML UNIT-DOSE CUPS GT SCH (22:42)
[2021-02-09] MEDS: ACETAMINOPHEN 650 MG/20.3 ML ORAL SOLUTION (CUPS) NGT PRN (22:43)
[2021-02-10] MEDS: SODIUM BICARBONATE 650 MG TABLET PO SCH ×3 (06:26→21:26)
[2021-02-10] MEDS: ACETAMINOPHEN 650 MG/20.3 ML ORAL SOLUTION (CUPS) NGT PRN ×2 (06:27→21:26)
[2021-02-10] MEDS: METOCLOPRAMIDE HCL 10 MG/10 ML UNIT DOSE CUP PO SCH ×3 (06:27→21:27)
[2021-02-10] MEDS: INSULIN (LEVEMIR) 100 UNITS/ML UNITS SQ SCH ×2 (06:38→21:27)
[2021-02-10] MEDS: INSULIN SLIDING SCALE (NOVOLOG) 1 VIAL SQ SCH ×2 (06:39→18:44)
[2021-02-10 07:58] LABS: ALBUMIN 1.7 g/dl (3.4-5.0)
[2021-02-10 08:01] LABS: CREATININE 0.8 mg/dL (0.55-1.3)
[2021-02-10 08:02] LABS: BILIRUBIN,TOTAL 0.4 mg/dL (0.2-1)
[2021-02-10 08:07] LABS: CALCIUM 8.5 mg/dL (8.5-10.1)
[2021-02-10] MEDS ORDERED: PT OWN MED DRAWER 7, Y5N ONE (09:20)
[2021-02-10] MEDS: FERROUS SO4 325 MG TABLET (FP) PO SCH (10:20)
[2021-02-10] MEDS: amLODIPine BESYLATE 5 MG TABLET (FP) NGT SCH (10:20)
[2021-02-10] MEDS: CYANOCOBALAMIN 1,000 MCG TABLET (FP) NGT SCH (10:20)
[2021-02-10] MEDS: AMINO ACIDS/PROTEIN HYDROLYS 30 ML LIQUID.PKT NGT SCH ×2 (10:21→18:45)
[2021-02-10] MEDS: FOLIC ACID 1 MG TABLET (FP) NGT SCH (10:21)
[2021-02-10] MEDS: POLYETHYLENE GLYCOL (HEALTHYLAX) 3350 17 GM PACKET NGT SCH (10:21)
[2021-02-10] MEDS: CARVEDILOL 25 MG TABLET (FP) NGT SCH ×2 (10:21→21:26)
[2021-02-10] MEDS: FAMOTIDINE 40 MG/5 ML ORAL SUSPENSION NGT SCH (10:22)
[2021-02-10] MEDS: ASCORBIC ACID 500 MG/5 ML UNIT DOSE CUP NGT SCH (10:23)
[2021-02-10] MEDS: SENNOSIDES 8.8 MG/5 ML BULK BOTTLE NGT SCH (10:23)
[2021-02-10] MEDS ORDERED: SERTRALINE HCL 25 MG TABLET (FP) PO SCH (11:30)
[2021-02-10] MEDS: COLLAGENASE CLOSTRIDIUM HIST. 30 GRAMS TUBE TP SCH (14:08)
[2021-02-10] MEDS: DOCUSATE NA 100 MG/10 ML UNIT-DOSE CUPS GT SCH (21:26)
[2021-02-10] MEDS: ATORVASTATIN CA 20 MG TABLET (FP) NGT SCH (21:26)
[2021-02-11] MEDS ORDERED: FERROUS SO4 300 MG/5 ML ORAL SOLN UNIT DOSE CUPS PO SCH (06:29)
[2021-02-11] MEDS ORDERED: SODIUM BICARBONATE 650 MG TABLET NGT SCH (06:31)
[2021-02-11] MEDS: INSULIN (LEVEMIR) 100 UNITS/ML UNITS SQ SCH ×2 (06:59→21:12)
[2021-02-11] MEDS: INSULIN SLIDING SCALE (NOVOLOG) 1 VIAL SQ SCH ×2 (06:59→17:20)
[2021-02-11] MEDS: METOCLOPRAMIDE HCL 10 MG/10 ML UNIT DOSE CUP PO SCH ×3 (06:59→21:14)
[2021-02-11] MEDS: SODIUM BICARBONATE 650 MG TABLET PO SCH (07:00)
[2021-02-11] MEDS: SODIUM BICARBONATE 650 MG TABLET NGT SCH ×3 (07:47→21:13)
[2021-02-11] MEDS ORDERED: PT OWN MED DRAWER 7, Y5N ONE (08:45)
[2021-02-11] MEDS: AMINO ACIDS/PROTEIN HYDROLYS 30 ML LIQUID.PKT NGT SCH ×2 (09:22→16:53)
[2021-02-11] MEDS: CYANOCOBALAMIN 1,000 MCG TABLET (FP) NGT SCH (09:22)
[2021-02-11] MEDS: SERTRALINE HCL 25 MG TABLET (FP) NR SCH (09:22)
[2021-02-11] MEDS: FOLIC ACID 1 MG TABLET (FP) NGT SCH (09:22)
[2021-02-11] MEDS: CARVEDILOL 25 MG TABLET (FP) NGT SCH ×2 (09:22→21:14)
[2021-02-11] MEDS: amLODIPine BESYLATE 5 MG TABLET (FP) NGT SCH (09:22)
[2021-02-11] MEDS: FERROUS SO4 300 MG/5 ML ORAL SOLN UNIT DOSE CUPS NGT SCH (09:23)
[2021-02-11] MEDS: ACETAMINOPHEN 650 MG/20.3 ML ORAL SOLUTION (CUPS) NGT PRN (09:23)
[2021-02-11] MEDS: COLLAGENASE CLOSTRIDIUM HIST. 30 GRAMS TUBE TP SCH (09:24)
[2021-02-11] MEDS: FAMOTIDINE 40 MG/5 ML ORAL SUSPENSION NGT SCH (09:24)
[2021-02-11] MEDS: ASCORBIC ACID 500 MG/5 ML UNIT DOSE CUP NGT SCH (09:25)
[2021-02-11] MEDS: POLYETHYLENE GLYCOL (HEALTHYLAX) 3350 17 GM PACKET NGT SCH (09:29)
[2021-02-11 11:13] LABS: BASO % 0.1 % (0-2.0); EOS % 2.5 % (0-4.5); HEMATOCRIT 16.6 % (32.4-45.2); MCH 28.3 pg (25.7-33.7); MCHC 33.3 g/dl (32.0-36.0); MEAN PLT VOLUME 9.6 fl (7.5-11.1); MONO % 4.5 % (3.8-10.2); NEUT % 88.9 % (42.8-82.8); PLATELET COUNT 126 10^3/uL (134-434); RBC 1.96 M/mm3 (3.60-5.2); RDW 20.5 % (11.6-15.6); WHITE BLOOD COUNT 4.5 K/mm3 (4.0-10.0)
[2021-02-11 11:15] LABS: INR 0.97 (0.83-1.09)
[2021-02-11 11:21] LABS: HEMOGLOBIN 5.5 GM/dL (10.7-15.3)
[2021-02-11] MEDS: SENNOSIDES 8.8 MG/5 ML BULK BOTTLE NGT SCH (11:22)
[2021-02-11 11:31] LABS: ALBUMIN 1.5 g/dl (3.4-5.0); CALCIUM 8.1 mg/dL (8.5-10.1)
[2021-02-11 11:32] LABS: BLOOD UREA NITROGEN 57.2 mg/dL (7-18)
[2021-02-11 11:35] LABS: CREATININE 0.8 mg/dL (0.55-1.3)
[2021-02-11 11:36] LABS: BILIRUBIN,TOTAL 0.3 mg/dL (0.2-1)
[2021-02-11 12:06] LABS: ANISOCYTOSIS 1+; MACROCYTOSIS 0; PLATELET ESTIMATE DECREASED
[2021-02-11 12:18] LABS: HEMATOCRIT 15.7 % (32.4-45.2); MCH 28.2 pg (25.7-33.7); MCHC 33.2 g/dl (32.0-36.0); MEAN CELL VOLUME 85.1 fl (80-96); MEAN PLT VOLUME 9.7 fl (7.5-11.1); PLATELET COUNT 114 10^3/uL (134-434); RBC 1.84 M/mm3 (3.60-5.2); RDW 20.5 % (11.6-15.6); WHITE BLOOD COUNT 4.1 K/mm3 (4.0-10.0)
[2021-02-11 12:23] LABS: HEMOGLOBIN 5.2 GM/dL (10.7-15.3)
[2021-02-11] MEDS: VANCOMYCIN 1 GRAM (PRE-DOCKED) 1,000 MG/250 ML BAG IVPB SCH (18:56)
[2021-02-11] MEDS: DOCUSATE NA 100 MG/10 ML UNIT-DOSE CUPS GT SCH (21:12)
[2021-02-11] MEDS: PANTOPRAZOLE SODIUM 40 MG VIAL IVPUSH SCH (21:13)
[2021-02-11] MEDS: ATORVASTATIN CA 20 MG TABLET (FP) NGT SCH (21:13)
[2021-02-11] MEDS ORDERED: DEXTROSE 50%-WATER - 25 GM/50 ML VIAL IVPUSH ONE (22:00)
[2021-02-11] MEDS ORDERED: ACETAMINOPHEN 650 MG/20.3 ML ORAL SOLUTION (CUPS) NGT ONE (22:01)
[2021-02-12] MEDS ORDERED: DEXTROSE 50%-WATER 25 GM/50 ML DISP.SYRIN ONE (06:01)
[2021-02-12] MEDS ORDERED: DEXTROSE 50%-WATER - 25 GM/50 ML VIAL IVPUSH ONE (06:03)
[2021-02-12] MEDS: METOCLOPRAMIDE HCL 10 MG/10 ML UNIT DOSE CUP PO SCH ×3 (07:00→23:01)
[2021-02-12] MEDS: SODIUM BICARBONATE 650 MG TABLET NGT SCH ×3 (07:00→23:00)
[2021-02-12] MEDS: INSULIN (LEVEMIR) 100 UNITS/ML UNITS SQ SCH ×2 (07:01→23:13)
[2021-02-12] MEDS: INSULIN SLIDING SCALE (NOVOLOG) 1 VIAL SQ SCH ×2 (07:01→17:22)
[2021-02-12 07:39] LABS: HEMATOCRIT 29.3 % (32.4-45.2); HEMOGLOBIN 10.1 GM/dL (10.7-15.3); MCH 29.3 pg (25.7-33.7); MCHC 34.4 g/dl (32.0-36.0); MEAN CELL VOLUME 85.1 fl (80-96); MEAN PLT VOLUME 9.3 fl (7.5-11.1); PLATELET COUNT 120 10^3/uL (134-434); RBC 3.44 M/mm3 (3.60-5.2); WHITE BLOOD COUNT 5.4 K/mm3 (4.0-10.0)
[2021-02-12] MEDS: AMINO ACIDS/PROTEIN HYDROLYS 30 ML LIQUID.PKT NGT SCH ×2 (10:06→17:09)
[2021-02-12] MEDS: SERTRALINE HCL 25 MG TABLET (FP) NR SCH (10:06)
[2021-02-12] MEDS: CARVEDILOL 25 MG TABLET (FP) NGT SCH ×2 (10:06→23:01)
[2021-02-12] MEDS: CYANOCOBALAMIN 1,000 MCG TABLET (FP) NGT SCH (10:06)
[2021-02-12] MEDS: amLODIPine BESYLATE 5 MG TABLET (FP) NGT SCH (10:06)
[2021-02-12] MEDS: FOLIC ACID 1 MG TABLET (FP) NGT SCH (10:06)
[2021-02-12] MEDS: COLLAGENASE CLOSTRIDIUM HIST. 30 GRAMS TUBE TP SCH (10:07)
[2021-02-12] MEDS: ASCORBIC ACID 500 MG/5 ML UNIT DOSE CUP NGT SCH (10:07)
[2021-02-12] MEDS: FERROUS SO4 300 MG/5 ML ORAL SOLN UNIT DOSE CUPS NGT SCH (10:07)
[2021-02-12] MEDS: SENNOSIDES 8.8 MG/5 ML BULK BOTTLE NGT SCH (10:07)
[2021-02-12] MEDS: PANTOPRAZOLE SODIUM 40 MG VIAL IVPUSH SCH ×2 (10:07→23:01)
[2021-02-12] MEDS ORDERED: AMINO ACIDS 4.25%/D5W 1,000 ML IV SCH (12:15)
[2021-02-12] MEDS: VANCOMYCIN 1 GRAM (PRE-DOCKED) 1,000 MG/250 ML BAG IVPB SCH (18:35)
[2021-02-12] MEDS: DOCUSATE NA 100 MG/10 ML UNIT-DOSE CUPS GT SCH (23:00)
[2021-02-12] MEDS: ATORVASTATIN CA 20 MG TABLET (FP) NGT SCH (23:01)
[2021-02-12] MEDS: ACETAMINOPHEN 650 MG/20.3 ML ORAL SOLUTION (CUPS) NGT PRN (23:17)
[2021-02-13] MEDS: INSULIN (LEVEMIR) 100 UNITS/ML UNITS SQ SCH ×2 (06:42→23:40)
[2021-02-13] MEDS: METOCLOPRAMIDE HCL 10 MG/10 ML UNIT DOSE CUP PO SCH ×3 (06:42→23:41)
[2021-02-13] MEDS: INSULIN SLIDING SCALE (NOVOLOG) 1 VIAL SQ SCH ×2 (06:43→17:05)
[2021-02-13 08:05] LABS: BLOOD UREA NITROGEN 55.4 mg/dL (7-18); CALCIUM 7.8 mg/dL (8.5-10.1)
[2021-02-13 08:06] LABS: ALBUMIN 1.5 g/dl (3.4-5.0)
[2021-02-13 08:09] LABS: BILIRUBIN,TOTAL 0.8 mg/dL (0.2-1)
[2021-02-13 08:10] LABS: TOT PROT 5.6 g/dl (6.4-8.2)
[2021-02-13] MEDS ORDERED: POTASSIUM CHLORIDE ORAL LIQUID 20 MEQ/15 ML PO ONE (09:19)
[2021-02-13] MEDS: PANTOPRAZOLE SODIUM 40 MG VIAL IVPUSH SCH ×2 (10:15→23:24)
[2021-02-13] MEDS: COLLAGENASE CLOSTRIDIUM HIST. 30 GRAMS TUBE TP SCH (10:15)
[2021-02-13] MEDS ORDERED: PT OWN MED DRAWER 7, Y5N ONE (10:28)
[2021-02-13] MEDS ORDERED: DEXTROSE 5%-WATER - 50 ML IVPB ONE (10:29)
[2021-02-13] MEDS ORDERED: cefTRIAXone SODIUM 1 GM VIAL ONE (10:29)
[2021-02-13] MEDS: AMINO ACIDS/PROTEIN HYDROLYS 30 ML LIQUID.PKT NGT SCH ×2 (10:36→17:07)
[2021-02-13] MEDS: CEFTRIAXONE 1 GM in DEXTROSE 5%-WATER - 50 ML IVPB SCH (10:37)
[2021-02-13] MEDS: CARVEDILOL 25 MG TABLET (FP) NGT SCH ×2 (10:37→23:40)
[2021-02-13] MEDS: SODIUM BICARBONATE 650 MG TABLET NGT SCH ×2 (10:37→23:41)
[2021-02-13] MEDS: CYANOCOBALAMIN 1,000 MCG TABLET (FP) NGT SCH (10:37)
[2021-02-13] MEDS: FOLIC ACID 1 MG TABLET (FP) NGT SCH (10:37)
[2021-02-13] MEDS: amLODIPine BESYLATE 5 MG TABLET (FP) NGT SCH (10:37)
[2021-02-13] MEDS: SERTRALINE HCL 25 MG TABLET (FP) NR SCH (10:37)
[2021-02-13] MEDS: FERROUS SO4 300 MG/5 ML ORAL SOLN UNIT DOSE CUPS NGT SCH (10:37)
[2021-02-13] MEDS: ASCORBIC ACID 500 MG/5 ML UNIT DOSE CUP NGT SCH (10:38)
[2021-02-13] MEDS: SENNOSIDES 8.8 MG/5 ML BULK BOTTLE NGT SCH (10:38)
[2021-02-13] MEDS: ACETAMINOPHEN 650 MG/20.3 ML ORAL SOLUTION (CUPS) NGT PRN (14:14)
[2021-02-13] MEDS: DOCUSATE NA 100 MG/10 ML UNIT-DOSE CUPS GT SCH (23:40)
[2021-02-13] MEDS: ATORVASTATIN CA 20 MG TABLET (FP) NGT SCH (23:41)
[2021-02-14] MEDS: METOCLOPRAMIDE HCL 10 MG/10 ML UNIT DOSE CUP PO SCH ×2 (05:13→15:36)
[2021-02-14] MEDS ORDERED: DEXTROSE 50%-WATER - 25 GM/50 ML VIAL IVPUSH ONE (06:34)
[2021-02-14] MEDS ORDERED: DEXTROSE 50%-WATER - 25 GM/50 ML VIAL ONE (06:36)
[2021-02-14] MEDS: INSULIN (LEVEMIR) 100 UNITS/ML UNITS SQ SCH (06:43)
[2021-02-14] MEDS: INSULIN SLIDING SCALE (NOVOLOG) 1 VIAL SQ SCH ×2 (06:43→18:21)
[2021-02-14 07:16] LABS: HEMATOCRIT 27.8 % (32.4-45.2); HEMOGLOBIN 9.5 GM/dL (10.7-15.3); MCH 29.6 pg (25.7-33.7); MCHC 34.3 g/dl (32.0-36.0); MEAN CELL VOLUME 86.2 fl (80-96); MEAN PLT VOLUME 8.8 fl (7.5-11.1); PLATELET COUNT 120 10^3/uL (134-434); RBC 3.22 M/mm3 (3.60-5.2); RDW 17.1 % (11.6-15.6); WHITE BLOOD COUNT 4.7 K/mm3 (4.0-10.0)
[2021-02-14 07:38] LABS: CALCIUM 7.8 mg/dL (8.5-10.1)
[2021-02-14 07:39] LABS: ALBUMIN 1.3 g/dl (3.4-5.0); BLOOD UREA NITROGEN 61.2 mg/dL (7-18)
[2021-02-14 07:42] LABS: CREATININE 0.8 mg/dL (0.55-1.3)
[2021-02-14 07:43] LABS: BILIRUBIN,TOTAL 0.7 mg/dL (0.2-1)
[2021-02-14] MEDS ORDERED: cefTRIAXone SODIUM 1 GM VIAL ONE (10:49)
[2021-02-14] MEDS ORDERED: PT OWN MED DRAWER 7, Y5N ONE (10:49)
[2021-02-14] MEDS ORDERED: DEXTROSE 5%-WATER - 50 ML IVPB ONE (10:49)
[2021-02-14] MEDS: PANTOPRAZOLE SODIUM 40 MG VIAL IVPUSH SCH (11:02)
[2021-02-14] MEDS: CARVEDILOL 25 MG TABLET (FP) NGT SCH (11:04)
[2021-02-14] MEDS: AMINO ACIDS/PROTEIN HYDROLYS 30 ML LIQUID.PKT NGT SCH ×2 (11:04→18:16)
[2021-02-14] MEDS: FOLIC ACID 1 MG TABLET (FP) NGT SCH (11:04)
[2021-02-14] MEDS: CYANOCOBALAMIN 1,000 MCG TABLET (FP) NGT SCH (11:04)
[2021-02-14] MEDS: CEFTRIAXONE 1 GM in DEXTROSE 5%-WATER - 50 ML IVPB SCH (11:04)
[2021-02-14] MEDS: SERTRALINE HCL 25 MG TABLET (FP) NR SCH (11:04)
[2021-02-14] MEDS: amLODIPine BESYLATE 5 MG TABLET (FP) NGT SCH (11:04)
[2021-02-14] MEDS: SENNOSIDES 8.8 MG/5 ML BULK BOTTLE NGT SCH (11:05)
[2021-02-14] MEDS: SODIUM BICARBONATE 650 MG TABLET NGT SCH (11:05)
[2021-02-14] MEDS: FERROUS SO4 300 MG/5 ML ORAL SOLN UNIT DOSE CUPS NGT SCH (11:05)
[2021-02-14] MEDS: COLLAGENASE CLOSTRIDIUM HIST. 30 GRAMS TUBE TP SCH (11:05)
[2021-02-14] MEDS: ASCORBIC ACID 500 MG/5 ML UNIT DOSE CUP NGT SCH (11:05)
[2021-02-14] MEDS: POTASSIUM CHLORIDE ORAL LIQUID 20 MEQ/15 ML PO SCH (12:45)
[2021-02-14] MEDS: AMPICILLIN NA/SULBACTAM NA 3 GM in SODIUM CHLORIDE 100 ML IVPB SCH (15:36)
[2021-02-14] MEDS ORDERED: GlUCAGON HUMAN RECOMBINANT 1 MG/VIAL IM ONE (22:01)
[2021-02-15] MEDS: CARVEDILOL 25 MG TABLET (FP) NGT SCH ×3 (00:15→22:16)
[2021-02-15] MEDS: DOCUSATE NA 100 MG/10 ML UNIT-DOSE CUPS GT SCH ×2 (00:15→22:15)
[2021-02-15] MEDS: ATORVASTATIN CA 20 MG TABLET (FP) NGT SCH ×2 (00:16→22:15)
[2021-02-15] MEDS: PANTOPRAZOLE SODIUM 40 MG VIAL IVPUSH SCH ×3 (00:16→22:16)
[2021-02-15] MEDS: POTASSIUM CHLORIDE ORAL LIQUID 20 MEQ/15 ML PO SCH (00:16)
[2021-02-15] MEDS: INSULIN (LEVEMIR) 100 UNITS/ML UNITS SQ SCH ×3 (00:16→23:05)
[2021-02-15] MEDS: METOCLOPRAMIDE HCL 10 MG/10 ML UNIT DOSE CUP PO SCH ×4 (00:17→22:15)
[2021-02-15] MEDS: cloNIDine-TTS 0.3 MG /24 HRS PATCH.TDWK TD SCH (00:18)
[2021-02-15] MEDS ORDERED: GLUCAGON 1 MG KIT IM ONE (05:15)
[2021-02-15] MEDS: INSULIN SLIDING SCALE (NOVOLOG) 1 VIAL SQ SCH ×2 (07:05→17:23)
[2021-02-15 08:46] LABS: CALCIUM 8.2 mg/dL (8.5-10.1)
[2021-02-15 08:47] LABS: ALBUMIN 1.3 g/dl (3.4-5.0); BLOOD UREA NITROGEN 60.8 mg/dL (7-18); MAGNESIUM 2.7 mg/dL (1.8-2.4)
[2021-02-15 08:50] LABS: CREATININE 0.8 mg/dL (0.55-1.3)
[2021-02-15 08:52] LABS: BILIRUBIN,TOTAL 0.4 mg/dL (0.2-1); TOT PROT 5.4 g/dl (6.4-8.2)
[2021-02-15] MEDS ORDERED: PT OWN MED DRAWER 7, Y5N ONE ×2 (09:06→09:23)
[2021-02-15] MEDS: SERTRALINE HCL 25 MG TABLET (FP) NR SCH (09:12)
[2021-02-15] MEDS: amLODIPine BESYLATE 5 MG TABLET (FP) NGT SCH (09:13)
[2021-02-15] MEDS: AMINO ACIDS/PROTEIN HYDROLYS 30 ML LIQUID.PKT NGT SCH ×2 (09:13→17:04)
[2021-02-15] MEDS: ASCORBIC ACID 500 MG/5 ML UNIT DOSE CUP NGT SCH (09:13)
[2021-02-15] MEDS: FOLIC ACID 1 MG TABLET (FP) NGT SCH (09:13)
[2021-02-15] MEDS: FERROUS SO4 300 MG/5 ML ORAL SOLN UNIT DOSE CUPS NGT SCH (09:13)
[2021-02-15] MEDS: CYANOCOBALAMIN 1,000 MCG TABLET (FP) NGT SCH (09:13)
[2021-02-15] MEDS: COLLAGENASE CLOSTRIDIUM HIST. 30 GRAMS TUBE TP SCH (09:14)
[2021-02-15] MEDS: SENNOSIDES 8.8 MG/5 ML BULK BOTTLE NGT SCH (09:14)
[2021-02-15] MEDS ORDERED: SODIUM CHLORIDE 100 ML IVPB ONE ×2 (11:16→16:48)
[2021-02-15] MEDS ORDERED: AMPICILLIN NA/SULBACTAM NA 3 GM VIAL ONE ×2 (11:16→16:48)
[2021-02-15] MEDS: AMPICILLIN NA/SULBACTAM NA 3 GM in SODIUM CHLORIDE 100 ML IVPB SCH ×3 (11:17→17:04)
[2021-02-15] MEDS: AMINO ACIDS 4.25%/D5W 1,000 ML IV SCH (16:19)
[2021-02-15] MEDS: SILVER SULFADIAZINE 1% TOP CREAM 50 GM JAR TP SCH (22:16)
[2021-02-16] MEDS ORDERED: SODIUM CHLORIDE 100 ML IVPB ONE ×3 (02:04→16:33)
[2021-02-16] MEDS ORDERED: AMPICILLIN NA/SULBACTAM NA 3 GM VIAL ONE ×3 (02:04→16:32)
[2021-02-16] MEDS: AMPICILLIN NA/SULBACTAM NA 3 GM in SODIUM CHLORIDE 100 ML IVPB SCH ×3 (02:10→17:00)
[2021-02-16] MEDS: INSULIN (LEVEMIR) 100 UNITS/ML UNITS SQ SCH ×2 (06:23→23:29)
[2021-02-16] MEDS: AMINO ACIDS 4.25%/D5W 1,000 ML IV SCH ×2 (06:23→07:28)
[2021-02-16] MEDS: METOCLOPRAMIDE HCL 10 MG/10 ML UNIT DOSE CUP PO SCH ×3 (06:23→22:57)
[2021-02-16] MEDS: INSULIN SLIDING SCALE (NOVOLOG) 1 VIAL SQ SCH ×2 (06:23→16:53)
[2021-02-16 08:46] LABS: HEMATOCRIT 26.6 % (32.4-45.2); MCH 29.6 pg (25.7-33.7); MCHC 33.9 g/dl (32.0-36.0); MEAN CELL VOLUME 87.4 fl (80-96); MEAN PLT VOLUME 8.8 fl (7.5-11.1); PLATELET COUNT 120 10^3/uL (134-434); RBC 3.05 M/mm3 (3.60-5.2); RDW 17.7 % (11.6-15.6); WHITE BLOOD COUNT 4.8 K/mm3 (4.0-10.0)
[2021-02-16] MEDS ORDERED: PT OWN MED DRAWER 7, Y5N ONE (08:59)
[2021-02-16 09:05] LABS: BLOOD UREA NITROGEN 68.1 mg/dL (7-18); CALCIUM 7.5 mg/dL (8.5-10.1)
[2021-02-16 09:06] LABS: ALBUMIN 1.2 g/dl (3.4-5.0)
[2021-02-16] MEDS: CARVEDILOL 25 MG TABLET (FP) NGT SCH ×2 (09:08→22:57)
[2021-02-16] MEDS: AMINO ACIDS/PROTEIN HYDROLYS 30 ML LIQUID.PKT NGT SCH ×2 (09:08→16:53)
[2021-02-16] MEDS: FOLIC ACID 1 MG TABLET (FP) NGT SCH (09:08)
[2021-02-16] MEDS: amLODIPine BESYLATE 5 MG TABLET (FP) NGT SCH (09:09)
[2021-02-16] MEDS: CYANOCOBALAMIN 1,000 MCG TABLET (FP) NGT SCH (09:09)
[2021-02-16] MEDS: SERTRALINE HCL 25 MG TABLET (FP) NR SCH (09:09)
[2021-02-16] MEDS: FERROUS SO4 300 MG/5 ML ORAL SOLN UNIT DOSE CUPS NGT SCH (09:09)
[2021-02-16] MEDS: PANTOPRAZOLE SODIUM 40 MG VIAL IVPUSH SCH ×2 (09:09→22:57)
[2021-02-16 09:10] LABS: BILIRUBIN,TOTAL 0.4 mg/dL (0.2-1); TOT PROT 5.4 g/dl (6.4-8.2)
[2021-02-16] MEDS: ASCORBIC ACID 500 MG/5 ML UNIT DOSE CUP NGT SCH (09:10)
[2021-02-16] MEDS: ERGOCALCIFEROL (VIT D2) 50,000 UNIT (1.25 MG) CAPSULE PO SCH (09:11)
[2021-02-16] MEDS: COLLAGENASE CLOSTRIDIUM HIST. 30 GRAMS TUBE TP SCH (09:11)
[2021-02-16] MEDS: SILVER SULFADIAZINE 1% TOP CREAM 50 GM JAR TP SCH ×2 (09:12→22:58)
[2021-02-16] MEDS: SENNOSIDES 8.8 MG/5 ML BULK BOTTLE NGT SCH (09:12)
[2021-02-16] MEDS ORDERED: POTASSIUM CHLORIDE ORAL LIQUID 20 MEQ/15 ML PO ONE ×2 (10:36→22:00)
[2021-02-16] MEDS ORDERED: KCL 10 MEQ IVPB 10 MEQ/100 ML INFUS.BAG IVPB SCH (10:45)
[2021-02-16] MEDS ORDERED: GlUCAGON HUMAN RECOMBINANT 1 MG/VIAL IVPUSH ONE (12:15)
[2021-02-16] MEDS: POTASSIUM CHLORIDE 20 MEQ in AMINO ACIDS 4.25%/D5W 1,000 ML IV SCH (12:59)
[2021-02-16] MEDS: DOCUSATE NA 100 MG/10 ML UNIT-DOSE CUPS GT SCH (22:53)
[2021-02-16] MEDS: ATORVASTATIN CA 20 MG TABLET (FP) NGT SCH (22:57)
[2021-02-17] MEDS ORDERED: AMPICILLIN NA/SULBACTAM NA 3 GM VIAL ONE ×3 (01:28→16:11)
[2021-02-17] MEDS ORDERED: SODIUM CHLORIDE 100 ML IVPB ONE ×3 (01:28→16:11)
[2021-02-17] MEDS: AMPICILLIN NA/SULBACTAM NA 3 GM in SODIUM CHLORIDE 100 ML IVPB SCH ×3 (01:35→17:43)
[2021-02-17] MEDS: ACETAMINOPHEN 650 MG/20.3 ML ORAL SOLUTION (CUPS) NGT PRN ×2 (01:57→21:36)
[2021-02-17] MEDS: POTASSIUM CHLORIDE 20 MEQ in AMINO ACIDS 4.25%/D5W 1,000 ML IV SCH ×2 (04:03→11:30)
[2021-02-17] MEDS: METOCLOPRAMIDE HCL 10 MG/10 ML UNIT DOSE CUP PO SCH ×3 (06:30→21:37)
[2021-02-17] MEDS: INSULIN (LEVEMIR) 100 UNITS/ML UNITS SQ SCH ×2 (06:44→21:49)
[2021-02-17] MEDS: INSULIN SLIDING SCALE (NOVOLOG) 1 VIAL SQ SCH ×2 (06:44→17:43)
[2021-02-17] MEDS: AMINO ACIDS/PROTEIN HYDROLYS 30 ML LIQUID.PKT NGT SCH ×2 (08:00→16:48)
[2021-02-17] MEDS: PANTOPRAZOLE SODIUM 40 MG VIAL IVPUSH SCH ×2 (10:54→21:38)
[2021-02-17] MEDS: COLLAGENASE CLOSTRIDIUM HIST. 30 GRAMS TUBE TP SCH (11:20)
[2021-02-17] MEDS: SILVER SULFADIAZINE 1% TOP CREAM 50 GM JAR TP SCH ×2 (11:20→23:00)
[2021-02-17] MEDS: FERROUS SO4 300 MG/5 ML ORAL SOLN UNIT DOSE CUPS NGT SCH (16:47)
[2021-02-17] MEDS: CYANOCOBALAMIN 1,000 MCG TABLET (FP) NGT SCH (16:48)
[2021-02-17] MEDS: amLODIPine BESYLATE 5 MG TABLET (FP) NGT SCH (16:48)
[2021-02-17] MEDS: CARVEDILOL 25 MG TABLET (FP) NGT SCH ×2 (16:48→21:37)
[2021-02-17] MEDS: FOLIC ACID 1 MG TABLET (FP) NGT SCH (16:48)
[2021-02-17] MEDS: ASCORBIC ACID 500 MG/5 ML UNIT DOSE CUP NGT SCH (16:48)
[2021-02-17] MEDS: SERTRALINE HCL 25 MG TABLET (FP) NR SCH (16:48)
[2021-02-17] MEDS: ATORVASTATIN CA 20 MG TABLET (FP) NGT SCH (21:37)
[2021-02-17] MEDS: SENNOSIDES 8.8 MG/5 ML BULK BOTTLE NGT SCH (23:43)
[2021-02-18] MEDS ORDERED: SODIUM CHLORIDE 100 ML IVPB ONE ×3 (01:23→17:23)
[2021-02-18] MEDS ORDERED: AMPICILLIN NA/SULBACTAM NA 3 GM VIAL ONE ×3 (01:23→17:23)
[2021-02-18] MEDS: AMPICILLIN NA/SULBACTAM NA 3 GM in SODIUM CHLORIDE 100 ML IVPB SCH ×3 (01:25→17:28)
[2021-02-18] MEDS ORDERED: LOPERAMIDE HCL 1 MG/5 ML UNIT DOSE CUP GT ONE (02:30)
[2021-02-18] MEDS ORDERED: LOPERAMIDE HCL 1 MG/7.5 ML LIQUID GT ONE (03:00)
[2021-02-18] MEDS: ACETAMINOPHEN 650 MG/20.3 ML ORAL SOLUTION (CUPS) NGT PRN (06:34)
[2021-02-18] MEDS: METOCLOPRAMIDE HCL 10 MG/10 ML UNIT DOSE CUP PO SCH (06:34)
[2021-02-18] MEDS: INSULIN (LEVEMIR) 100 UNITS/ML UNITS SQ SCH ×2 (06:42→23:01)
[2021-02-18] MEDS: INSULIN SLIDING SCALE (NOVOLOG) 1 VIAL SQ SCH ×2 (06:42→17:56)
[2021-02-18] MEDS: BANATROL PLUS POWDER PACKET GT SCH ×3 (08:30→21:58)
[2021-02-18 09:05] LABS: ALBUMIN 1.2 g/dl (3.4-5.0); BLOOD UREA NITROGEN 58.7 mg/dL (7-18); CALCIUM 7.7 mg/dL (8.5-10.1); MAGNESIUM 2.2 mg/dL (1.8-2.4)
[2021-02-18 09:07] LABS: PHOSPHOROUS 2.6 mg/dL (2.5-4.9)
[2021-02-18 09:09] LABS: BILIRUBIN,TOTAL 0.3 mg/dL (0.2-1); TOT PROT 5.4 g/dl (6.4-8.2)
[2021-02-18] MEDS: SERTRALINE HCL 25 MG TABLET (FP) NR SCH (10:02)
[2021-02-18] MEDS: amLODIPine BESYLATE 5 MG TABLET (FP) NGT SCH (10:02)
[2021-02-18] MEDS: CYANOCOBALAMIN 1,000 MCG TABLET (FP) NGT SCH (10:02)
[2021-02-18] MEDS: FOLIC ACID 1 MG TABLET (FP) NGT SCH (10:02)
[2021-02-18] MEDS: CARVEDILOL 25 MG TABLET (FP) NGT SCH ×2 (10:03→21:58)
[2021-02-18] MEDS: AMINO ACIDS/PROTEIN HYDROLYS 30 ML LIQUID.PKT NGT SCH ×2 (10:03→17:28)
[2021-02-18] MEDS: PANTOPRAZOLE SODIUM 40 MG VIAL IVPUSH SCH ×2 (10:03→21:59)
[2021-02-18] MEDS: FERROUS SO4 300 MG/5 ML ORAL SOLN UNIT DOSE CUPS NGT SCH (10:03)
[2021-02-18] MEDS: ASCORBIC ACID 500 MG/5 ML UNIT DOSE CUP NGT SCH (10:03)
[2021-02-18] MEDS: COLLAGENASE CLOSTRIDIUM HIST. 30 GRAMS TUBE TP SCH (11:13)
[2021-02-18] MEDS: SILVER SULFADIAZINE 1% TOP CREAM 50 GM JAR TP SCH ×2 (11:13→21:59)
[2021-02-18] MEDS ORDERED: PT OWN MED DRAWER 7, Y5N ONE (11:18)
[2021-02-18] MEDS: POTASSIUM CHLORIDE 40 MEQ in DEXTROSE 5%-WATER - 1,000 ML IV SCH ×2 (12:23→23:26)
[2021-02-18] MEDS ORDERED: ERGOCALCIFEROL 8,000 UNITS/ML DROPSBTL PO SCH (13:00)
[2021-02-18] MEDS ORDERED: BANATROL PLUS POWDER PACKET PO SCH (14:00)
[2021-02-18] MEDS: ERGOCALCIFEROL 8,000 UNITS/ML DROPSBTL NGT SCH (14:30)
[2021-02-18] MEDS: ATORVASTATIN CA 20 MG TABLET (FP) NGT SCH (21:58)
[2021-02-18] MEDS: METOCLOPRAMIDE HCL 10 MG/10 ML UNIT DOSE CUP NGT SCH (21:59)
[2021-02-19] MEDS ORDERED: AMPICILLIN NA/SULBACTAM NA 3 GM VIAL ONE ×3 (01:14→16:44)
[2021-02-19] MEDS ORDERED: SODIUM CHLORIDE 100 ML IVPB ONE ×3 (01:15→16:44)
[2021-02-19] MEDS: POTASSIUM CHLORIDE 40 MEQ in DEXTROSE 5%-WATER - 1,000 ML IV SCH ×3 (01:52→17:37)
[2021-02-19] MEDS: AMPICILLIN NA/SULBACTAM NA 3 GM in SODIUM CHLORIDE 100 ML IVPB SCH ×3 (01:52→17:38)
[2021-02-19] MEDS: BANATROL PLUS POWDER PACKET GT SCH ×3 (05:35→21:42)
[2021-02-19] MEDS: INSULIN SLIDING SCALE (NOVOLOG) 1 VIAL SQ SCH ×2 (06:47→17:36)
[2021-02-19] MEDS ORDERED: PT OWN MED DRAWER 7, Y5N ONE ×6 (08:46→21:37)
[2021-02-19 09:17] LABS: CALCIUM 7.4 mg/dL (8.5-10.1); MAGNESIUM 2.1 mg/dL (1.8-2.4)
[2021-02-19 09:21] LABS: BILIRUBIN,TOTAL 0.2 mg/dL (0.2-1); CREATININE 0.9 mg/dL (0.55-1.3); PHOSPHOROUS 1.7 mg/dL (2.5-4.9); TOT PROT 5.3 g/dl (6.4-8.2)
[2021-02-19] MEDS: ERGOCALCIFEROL 8,000 UNITS/ML DROPSBTL NGT SCH (09:58)
[2021-02-19] MEDS: AMINO ACIDS/PROTEIN HYDROLYS 30 ML LIQUID.PKT NGT SCH ×2 (09:58→17:38)
[2021-02-19] MEDS: PANTOPRAZOLE SODIUM 40 MG VIAL IVPUSH SCH ×2 (09:59→21:42)
[2021-02-19] MEDS: FERROUS SO4 300 MG/5 ML ORAL SOLN UNIT DOSE CUPS NGT SCH (09:59)
[2021-02-19] MEDS: METOCLOPRAMIDE HCL 10 MG/10 ML UNIT DOSE CUP NGT SCH ×2 (09:59→21:42)
[2021-02-19] MEDS: ASCORBIC ACID 500 MG/5 ML UNIT DOSE CUP NGT SCH (09:59)
[2021-02-19] MEDS: SILVER SULFADIAZINE 1% TOP CREAM 50 GM JAR TP SCH ×2 (10:00→21:42)
[2021-02-19] MEDS: SERTRALINE HCL 25 MG TABLET (FP) NR SCH (10:01)
[2021-02-19] MEDS: FOLIC ACID 1 MG TABLET (FP) NGT SCH (10:01)
[2021-02-19] MEDS: COLLAGENASE CLOSTRIDIUM HIST. 30 GRAMS TUBE TP SCH (10:03)
[2021-02-19] MEDS: CARVEDILOL 25 MG TABLET (FP) NGT SCH ×2 (10:03→21:42)
[2021-02-19] MEDS: amLODIPine BESYLATE 5 MG TABLET (FP) NGT SCH (10:03)
[2021-02-19] MEDS: CYANOCOBALAMIN 1,000 MCG TABLET (FP) NGT SCH (10:04)
[2021-02-19] MEDS ORDERED: POTASSIUM PHOSPHATE 15 MM in DEXTROSE 5%-WATER - 250 ML IVPB ONE (14:00)
[2021-02-19] MEDS: ATORVASTATIN CA 20 MG TABLET (FP) NGT SCH (21:42)
[2021-02-19] MEDS: INSULIN (LEVEMIR) 100 UNITS/ML UNITS SQ SCH (21:42)
[2021-02-20] MEDS: POTASSIUM CHLORIDE 40 MEQ in DEXTROSE 5%-WATER - 1,000 ML IV SCH ×2 (00:08→13:33)
[2021-02-20] MEDS ORDERED: SODIUM CHLORIDE 100 ML IVPB ONE ×3 (01:28→16:56)
[2021-02-20] MEDS ORDERED: AMPICILLIN NA/SULBACTAM NA 3 GM VIAL ONE ×3 (01:28→16:56)
[2021-02-20] MEDS: AMPICILLIN NA/SULBACTAM NA 3 GM in SODIUM CHLORIDE 100 ML IVPB SCH ×3 (02:06→17:17)
[2021-02-20] MEDS: BANATROL PLUS POWDER PACKET GT SCH ×2 (06:33→13:28)
[2021-02-20] MEDS: INSULIN SLIDING SCALE (NOVOLOG) 1 VIAL SQ SCH ×2 (06:33→17:13)
[2021-02-20 07:14] LABS: BASO % 0.1 % (0-2.0); EOS % 5.1 % (0-4.5); HEMATOCRIT 22.8 % (32.4-45.2); HEMOGLOBIN 7.6 GM/dL (10.7-15.3); LYMPH % 4.2 % (8-40); MCH 28.7 pg (25.7-33.7); MCHC 33.5 g/dl (32.0-36.0); MEAN CELL VOLUME 85.8 fl (80-96); MEAN PLT VOLUME 8.8 fl (7.5-11.1); MONO % 1.9 % (3.8-10.2); NEUT % 88.7 % (42.8-82.8); PLATELET COUNT 116 10^3/uL (134-434); RBC 2.66 M/mm3 (3.60-5.2); RDW 18.2 % (11.6-15.6); WHITE BLOOD COUNT 3.7 K/mm3 (4.0-10.0)
[2021-02-20 07:29] LABS: CALCIUM 7.4 mg/dL (8.5-10.1)
[2021-02-20 07:33] LABS: CREATININE 0.9 mg/dL (0.55-1.3); PHOSPHOROUS 2.4 mg/dL (2.5-4.9)
[2021-02-20 07:34] LABS: BILIRUBIN,TOTAL 0.2 mg/dL (0.2-1)
[2021-02-20 07:36] LABS: TOT PROT 5.2 g/dl (6.4-8.2)
[2021-02-20] MEDS: METOCLOPRAMIDE HCL 10 MG/10 ML UNIT DOSE CUP NGT SCH (10:19)
[2021-02-20] MEDS: FERROUS SO4 300 MG/5 ML ORAL SOLN UNIT DOSE CUPS NGT SCH (10:19)
[2021-02-20] MEDS ORDERED: PT OWN MED DRAWER 7, Y5N ONE ×2 (10:19→23:16)
[2021-02-20] MEDS: CYANOCOBALAMIN 1,000 MCG TABLET (FP) NGT SCH (10:20)
[2021-02-20] MEDS: FOLIC ACID 1 MG TABLET (FP) NGT SCH (10:20)
[2021-02-20] MEDS: AMINO ACIDS/PROTEIN HYDROLYS 30 ML LIQUID.PKT NGT SCH ×2 (10:20→17:14)
[2021-02-20] MEDS: PANTOPRAZOLE SODIUM 40 MG VIAL IVPUSH SCH (10:20)
[2021-02-20] MEDS: CARVEDILOL 25 MG TABLET (FP) NGT SCH (10:20)
[2021-02-20] MEDS: ERGOCALCIFEROL 8,000 UNITS/ML DROPSBTL NGT SCH (10:20)
[2021-02-20] MEDS: SERTRALINE HCL 25 MG TABLET (FP) NR SCH (10:20)
[2021-02-20] MEDS: amLODIPine BESYLATE 5 MG TABLET (FP) NGT SCH (10:20)
[2021-02-20] MEDS: ASCORBIC ACID 500 MG/5 ML UNIT DOSE CUP NGT SCH (10:21)
[2021-02-20] MEDS: SILVER SULFADIAZINE 1% TOP CREAM 50 GM JAR TP SCH (10:21)
[2021-02-20] MEDS: COLLAGENASE CLOSTRIDIUM HIST. 30 GRAMS TUBE TP SCH (10:21)
[2021-02-20] MEDS ORDERED: ALBUTEROL SO4 0.083% IH SOL 2.5 MG/3 ML VIAL.NEB. NEB PRN (13:25)
[2021-02-20] MEDS: ACETAMINOPHEN 650 MG/20.3 ML ORAL SOLUTION (CUPS) NGT PRN (14:32)
[2021-02-20] MEDS: MORPHINE SULFATE 2 MG/ML VIAL IVPUSH PRN (18:05)
[2021-02-20] MEDS ORDERED: ACETAMINOPHEN 650 MG/20.3 ML ORAL SOLUTION (CUPS) PO ONE (22:11)
[2021-02-21] MEDS: BANATROL PLUS POWDER PACKET GT SCH ×4 (00:23→22:26)
[2021-02-21] MEDS: ATORVASTATIN CA 20 MG TABLET (FP) NGT SCH ×2 (00:23→22:27)
[2021-02-21] MEDS: CARVEDILOL 25 MG TABLET (FP) NGT SCH (00:23)
[2021-02-21] MEDS: PANTOPRAZOLE SODIUM 40 MG VIAL IVPUSH SCH (00:23)
[2021-02-21] MEDS: METOCLOPRAMIDE HCL 10 MG/10 ML UNIT DOSE CUP NGT SCH ×3 (00:23→22:27)
[2021-02-21] MEDS: INSULIN (LEVEMIR) 100 UNITS/ML UNITS SQ SCH (00:23)
[2021-02-21] MEDS: SILVER SULFADIAZINE 1% TOP CREAM 50 GM JAR TP SCH ×3 (00:25→22:27)
[2021-02-21 01:04] LABS: LACTIC ACID 2.1 mmol/L (0.4-2.0)
[2021-02-21] MEDS ORDERED: SODIUM CHLORIDE 100 ML IVPB ONE (01:16)
[2021-02-21] MEDS ORDERED: AMPICILLIN NA/SULBACTAM NA 3 GM VIAL ONE (01:16)
[2021-02-21 01:53] LABS: EPI CELLS >36 /uL (0-25.1); HYALINE CASTS 34 /uL (0-3.1); URINE APPEARANCE Error; URINE BILIRUBIN NEGATIVE (NEGATIVE); URINE COLOR YELLOW; URINE GLUCOSE (UA) NEGATIVE (NEGATIVE); URINE KETONE NEGATIVE (NEGATIVE); URINE LEUK ESTERASE 1+ (NEGATIVE); URINE NITRITE NEGATIVE (NEGATIVE); URINE PROTEIN 1+ (NEGATIVE); URINE UROBILINOGEN 0.2 mg/dL (0.2-1.0); URINE WBC 317 /uL (0-25.8)
[2021-02-21] MEDS ORDERED: SODIUM CHLORIDE 250 ML IV STA (01:53)
[2021-02-21] MEDS ORDERED: VANCOMYCIN/WATER 1,250 MG/250 ML BAG IVPB ONE (01:58)
[2021-02-21] MEDS ORDERED: VASOPRESSIN 40 UNITS in SODIUM CHLORIDE 98 ML IVPB SCH (02:30)
[2021-02-21 03:03] LABS: ARTERIAL BLD GAS O2 SATURATION 89.1 % (95-98); ARTERIAL BLOOD GAS BASE EXCESS -9.3 mmol/L (-2-2); ARTERIAL BLOOD GAS pH 7.388 (7.350-7.450)
[2021-02-21] MEDS ORDERED: MIDAZOLAM HCL 2 MG/2 ML SINGLE DOSE VIAL IVPUSH PRN (03:20)
[2021-02-21] MEDS ORDERED: VANCOMYCIN/WATER BAGS 1,250 MG/250 ML BAG IVPB ONE (03:30)
[2021-02-21] MEDS: MORPHINE SULFATE 2 MG/ML VIAL IVPUSH PRN (03:35)
[2021-02-21] MEDS ORDERED: MIDAZOLAM HCL 2 MG/2 ML SINGLE DOSE VIAL ONE (04:32)
[2021-02-21 05:07] LABS: SARS-CoV-2 NAA Detected (Not Detected)
[2021-02-21] MEDS ORDERED: MIDAZOLAM HCL 2 MG/2 ML SINGLE DOSE VIAL IVPUSH ONE (05:12)
[2021-02-21 05:19] LABS: URINE BACTERIA 24.2 /uL (0-1359); URINE RBC 11389.5 /uL (0-23.9)
[2021-02-21 05:20] LABS: YEAST MANY (NEGATIVE)
[2021-02-21] MEDS: MUPIROCIN 2% TOPICAL OINTMENT FOR DECOLONIZATION NS SCH ×3 (05:20→22:26)
[2021-02-21 05:41] LABS: HEMATOCRIT 21.5 % (32.4-45.2); HEMOGLOBIN 7.2 GM/dL (10.7-15.3); MCHC 33.4 g/dl (32.0-36.0); MEAN PLT VOLUME 9.5 fl (7.5-11.1); PLATELET COUNT 114 10^3/uL (134-434); RBC 2.47 M/mm3 (3.60-5.2); RDW 17.7 % (11.6-15.6); WHITE BLOOD COUNT 3.1 K/mm3 (4.0-10.0)
[2021-02-21 06:00] LABS: CALCIUM 7.4 mg/dL (8.5-10.1)
[2021-02-21 06:01] LABS: ALBUMIN 0.9 g/dl (3.4-5.0); BLOOD UREA NITROGEN 51.1 mg/dL (7-18); MAGNESIUM 1.9 mg/dL (1.8-2.4)
[2021-02-21 06:05] LABS: BILIRUBIN,TOTAL 0.3 mg/dL (0.2-1); CREATININE 1.1 mg/dL (0.55-1.3); PHOSPHOROUS 3.9 mg/dL (2.5-4.9)
[2021-02-21 06:06] LABS: TOT PROT 5.1 g/dl (6.4-8.2)
[2021-02-21] MEDS: INSULIN SLIDING SCALE (NOVOLOG) 1 VIAL SQ SCH ×3 (06:07→16:54)
[2021-02-21] MEDS ORDERED: SODIUM CHLORIDE 1,000 ML IV SCH (06:15)
[2021-02-21] MEDS ORDERED: BISACODYL 10 MG SUPP.RECT RC PRN (07:14)
[2021-02-21] MEDS ORDERED: ALBUTEROL SO4 0.083% IH SOL 2.5 MG/3 ML VIAL.NEB. NEB PRN (07:14)
[2021-02-21] MEDS ORDERED: ACETAMINOPHEN 650 MG/20.3 ML ORAL SOLUTION (CUPS) NGT PRN (07:14)
[2021-02-21] MEDS ORDERED: MORPHINE SULFATE 2 MG/ML VIAL IVPUSH PRN (07:14)
[2021-02-21] MEDS ORDERED: hydrALAZINE HCL 20 MG/ML VIAL IVPUSH PRN (07:14)
[2021-02-21] MEDS: NOREPINEPHRINE BITARTRATE 16,000 MCG in SODIUM CHLORIDE 484 ML IV SCH (08:17)
[2021-02-21] MEDS: AMINO ACIDS/PROTEIN HYDROLYS 30 ML LIQUID.PKT NGT SCH ×2 (09:00→16:54)
[2021-02-21] MEDS ORDERED: SERTRALINE HCL 25 MG TABLET (FP) NR SCH (10:00)
[2021-02-21] MEDS ORDERED: PANTOPRAZOLE SODIUM 40 MG VIAL IVPUSH SCH (10:00)
[2021-02-21] MEDS: ERGOCALCIFEROL 8,000 UNITS/ML DROPSBTL NGT SCH (10:30)
[2021-02-21] MEDS: FERROUS SO4 300 MG/5 ML ORAL SOLN UNIT DOSE CUPS NGT SCH (10:31)
[2021-02-21] MEDS: FOLIC ACID 1 MG TABLET (FP) NGT SCH (10:31)
[2021-02-21] MEDS: COLLAGENASE CLOSTRIDIUM HIST. 30 GRAMS TUBE TP SCH (10:31)
[2021-02-21] MEDS: CYANOCOBALAMIN 1,000 MCG TABLET (FP) NGT SCH (10:32)
[2021-02-21] MEDS: ASCORBIC ACID 500 MG/5 ML UNIT DOSE CUP NGT SCH (10:32)
[2021-02-21] MEDS ORDERED: LACTATED RINGERS SOLUTION 1000 ML INFUS.BAG IV ONE (13:33)
[2021-02-21] MEDS ORDERED: DEXTROSE 5%-WATER - 1,000 ML IV SCH (13:45)
[2021-02-21 13:49] LABS: BASO % 0.1 % (0-2.0); EOS % 0.3 % (0-4.5); HEMATOCRIT 21.8 % (32.4-45.2); HEMOGLOBIN 7.2 GM/dL (10.7-15.3); LYMPH % 9.1 % (8-40); MCH 28.9 pg (25.7-33.7); MCHC 33.1 g/dl (32.0-36.0); MEAN CELL VOLUME 87.2 fl (80-96); MONO % 1.6 % (3.8-10.2); NEUT % 88.9 % (42.8-82.8); PLATELET COUNT 133 10^3/uL (134-434); RBC 2.51 M/mm3 (3.60-5.2); RDW 18.4 % (11.6-15.6)
[2021-02-21] MEDS: PIPERACILLIN/TAZOB 3.375 GM 3.375 GM in DEXTROSE 5%-WATER - 50 ML IVPB SCH ×2 (14:15→18:00)
[2021-02-21] MEDS ORDERED: DEXTROSE 5%-WATER - 50 ML IVPB ONE ×2 (14:55→17:55)
[2021-02-21] MEDS ORDERED: PIPERACILLIN/TAZOBACTAM 3.375 GM VIAL IVPB ONE ×2 (14:55→17:55)
[2021-02-21] MEDS ORDERED: INSULIN SLIDING SCALE (NOVOLOG) 1 VIAL SQ SCH (16:30)
[2021-02-21] MEDS: PANTOPRAZOLE SODIUM 80 MG in SODIUM CHLORIDE 100 ML IVPB SCH (16:53)
[2021-02-21] MEDS ORDERED: METOPROLOL TARTRATE 5 MG/5 ML VIAL IVPUSH ONE (17:38)
[2021-02-21] MEDS ORDERED: MORPHINE SULFATE 2 MG/ML VIAL IVPUSH ONE ×2 (17:39→20:09)
[2021-02-21] MEDS ORDERED: ALBUTEROL SO4 2.5/IPRATROPIUM 0.5 INH SOL 3 ML VIAL.NEB. NEB ONE (17:56)
[2021-02-21] MEDS ORDERED: methylPREDNISolone NA SUCC 40 MG/1 ML VIAL IVPUSH ONE (17:59)
[2021-02-21 19:01] LABS: ARTERIAL BLD GAS O2 SATURATION 94.8 % (95-98); ARTERIAL BLOOD GAS BASE EXCESS -10.9 mmol/L (-2-2); ARTERIAL BLOOD GAS PO2 76.1 mmHg (80-100); ARTERIAL BLOOD GAS pH 7.336 (7.350-7.450)
[2021-02-21 19:08] LABS: ALLENS TEST POSITIVE
[2021-02-21] MEDS: VASOPRESSIN 40 UNITS in SODIUM CHLORIDE 98 ML IVPB SCH (21:00)
[2021-02-21 21:45] LABS: BASO % 0.2 % (0-2.0); EOS % 0.5 % (0-4.5); HEMATOCRIT 21.2 % (32.4-45.2); LYMPH % 5.7 % (8-40); MCH 28.7 pg (25.7-33.7); MCHC 33.3 g/dl (32.0-36.0); MEAN CELL VOLUME 86.3 fl (80-96); MEAN PLT VOLUME 9.8 fl (7.5-11.1); MONO % 1.2 % (3.8-10.2); NEUT % 92.4 % (42.8-82.8); PLATELET COUNT 152 10^3/uL (134-434); RBC 2.45 M/mm3 (3.60-5.2); RDW 18.5 % (11.6-15.6); WHITE BLOOD COUNT 2.7 K/mm3 (4.0-10.0)
[2021-02-21] MEDS ORDERED: RAPID SEQUENCE INTUBATION KIT NR ONE (22:15)
[2021-02-21] MEDS ORDERED: PROPOFOL 20 ML ONE (22:19)
[2021-02-21] MEDS ORDERED: SUCCINYLCHOLINE CHLORIDE 200 MG/10 ML SYRINGE ONE (22:20)
[2021-02-21] MEDS ORDERED: LIDOCAINE HCL 2% JELLY (5 ML/TUBE) ONE (22:24)
[2021-02-21] MEDS: CHLORHEXIDINE GLUCONATE 4% CLEANSER FOR DECOLONIZATION TP SCH (22:26)
[2021-02-21 22:32] LABS: PLATELET ESTIMATE DECREASED
[2021-02-21] MEDS: MIDAZOLAM IN 0.9 % SOD.CHLORID 100 MG/100 ML PLAST..BAG IVPB SCH (23:27)
[2021-02-22] MEDS ORDERED: PIPERACILLIN/TAZOBACTAM 3.375 GM VIAL IVPB ONE ×3 (00:18→17:01)
[2021-02-22] MEDS ORDERED: DEXTROSE 5%-WATER - 50 ML IVPB ONE ×3 (00:18→17:02)
[2021-02-22] MEDS: INSULIN (LEVEMIR) 100 UNITS/ML UNITS SQ SCH ×2 (00:37→21:43)
[2021-02-22] MEDS: FENTANYL NS IVPB 500 MCG/100 ML BAG IVPB SCH ×3 (00:38→14:28)
[2021-02-22 00:49] LABS: ARTERIAL BLOOD GAS BASE EXCESS -14.1 mmol/L (-2-2); ARTERIAL BLOOD GAS PO2 123.7 mmHg (80-100)
[2021-02-22 00:50] LABS: ALLENS TEST POSITIVE
[2021-02-22 00:51] LABS: VENT RATE 16
[2021-02-22] MEDS: PIPERACILLIN/TAZOB 3.375 GM 3.375 GM in DEXTROSE 5%-WATER - 50 ML IVPB SCH ×3 (02:10→17:05)
[2021-02-22] MEDS: PANTOPRAZOLE SODIUM 80 MG in SODIUM CHLORIDE 100 ML IVPB SCH ×4 (03:09→21:36)
[2021-02-22] MEDS: NOREPINEPHRINE BITARTRATE 16,000 MCG in SODIUM CHLORIDE 484 ML IV SCH ×4 (03:09→14:27)
[2021-02-22] MEDS: BANATROL PLUS POWDER PACKET GT SCH ×3 (05:43→21:36)
[2021-02-22 06:31] LABS: HEMATOCRIT 21.1 % (32.4-45.2); HEMOGLOBIN 7.1 GM/dL (10.7-15.3); MCH 29.5 pg (25.7-33.7); MCHC 33.5 g/dl (32.0-36.0); MEAN PLT VOLUME 10.3 fl (7.5-11.1); PLATELET COUNT 172 10^3/uL (134-434); RDW 18.6 % (11.6-15.6); WHITE BLOOD COUNT 5.2 K/mm3 (4.0-10.0)
[2021-02-22 06:54] LABS: MAGNESIUM 1.9 mg/dL (1.8-2.4)
[2021-02-22 06:55] LABS: ALBUMIN 0.8 g/dl (3.4-5.0); BLOOD UREA NITROGEN 58.5 mg/dL (7-18); CALCIUM 7.3 mg/dL (8.5-10.1)
[2021-02-22 06:58] LABS: CREATININE 1.6 mg/dL (0.55-1.3); PHOSPHOROUS 5.7 mg/dL (2.5-4.9)
[2021-02-22 07:00] LABS: BILIRUBIN,TOTAL 0.4 mg/dL (0.2-1)
[2021-02-22] MEDS: INSULIN SLIDING SCALE (NOVOLOG) 1 VIAL SQ SCH ×3 (07:02→17:20)
[2021-02-22] MEDS ORDERED: AMINO ACIDS 4.25%/D5W 1,000 ML IV SCH (07:15)
[2021-02-22] MEDS ORDERED: PT OWN MED DRAWER 7, Y5N ONE ×2 (09:07→16:49)
[2021-02-22] MEDS: HYDROCORTISONE SOD SUCCINATE 100 MG/2 ML VIAL IVPB SCH ×3 (09:35→21:35)
[2021-02-22] MEDS: AMINO ACIDS/PROTEIN HYDROLYS 30 ML LIQUID.PKT NGT SCH ×3 (09:39→17:31)
[2021-02-22] MEDS: VASOPRESSIN 40 UNITS in SODIUM CHLORIDE 98 ML IVPB SCH ×2 (09:46→21:34)
[2021-02-22] MEDS: FERROUS SO4 300 MG/5 ML ORAL SOLN UNIT DOSE CUPS NGT SCH (10:24)
[2021-02-22] MEDS: ERGOCALCIFEROL 8,000 UNITS/ML DROPSBTL NGT SCH (10:24)
[2021-02-22] MEDS: FOLIC ACID 1 MG TABLET (FP) NGT SCH (10:25)
[2021-02-22] MEDS: METOCLOPRAMIDE HCL 10 MG/10 ML UNIT DOSE CUP NGT SCH ×2 (10:25→21:37)
[2021-02-22] MEDS: ASCORBIC ACID 500 MG/5 ML UNIT DOSE CUP NGT SCH (10:26)
[2021-02-22] MEDS: MUPIROCIN 2% TOPICAL OINTMENT FOR DECOLONIZATION NS SCH ×2 (10:26→21:36)
[2021-02-22] MEDS: SILVER SULFADIAZINE 1% TOP CREAM 50 GM JAR TP SCH ×2 (12:00→21:37)
[2021-02-22] MEDS: COLLAGENASE CLOSTRIDIUM HIST. 30 GRAMS TUBE TP SCH (12:00)
[2021-02-22] MEDS: CYANOCOBALAMIN 1,000 MCG TABLET (FP) NGT SCH (16:53)
[2021-02-22] MEDS: MIDAZOLAM IN 0.9 % SOD.CHLORID 100 MG/100 ML PLAST..BAG IVPB SCH (16:54)
[2021-02-22] MEDS: SODIUM BICARBONATE 8.4% 50 MEQ/50 ML DISP.SYRIN IVPUSH SCH ×2 (17:07→21:37)
[2021-02-22] MEDS: CHLORHEXIDINE GLUCONATE 4% CLEANSER FOR DECOLONIZATION TP SCH (21:36)
[2021-02-22] MEDS: ATORVASTATIN CA 20 MG TABLET (FP) NGT SCH (21:37)
[2021-02-23] MEDS: PIPERACILLIN/TAZOB 3.375 GM 3.375 GM in DEXTROSE 5%-WATER - 50 ML IVPB SCH ×3 (01:17→17:05)
[2021-02-23] MEDS: FENTANYL NS IVPB 500 MCG/100 ML BAG IVPB SCH ×2 (01:52→13:36)
[2021-02-23] MEDS: HYDROCORTISONE SOD SUCCINATE 100 MG/2 ML VIAL IVPB SCH ×4 (02:30→21:18)
[2021-02-23] MEDS: BANATROL PLUS POWDER PACKET GT SCH ×3 (06:00→21:19)
[2021-02-23] MEDS: NOREPINEPHRINE BITARTRATE 16,000 MCG in SODIUM CHLORIDE 484 ML IV SCH (06:00)
[2021-02-23 07:19] LABS: EOS % 0.1 % (0-4.5); LYMPH % 2.8 % (8-40); MCH 28.6 pg (25.7-33.7); MCHC 32.5 g/dl (32.0-36.0); MEAN PLT VOLUME 9.6 fl (7.5-11.1); MONO % 1.2 % (3.8-10.2); NEUT % 95.9 % (42.8-82.8); PLATELET COUNT 131 10^3/uL (134-434); RBC 1.96 M/mm3 (3.60-5.2); WHITE BLOOD COUNT 6.1 K/mm3 (4.0-10.0)
[2021-02-23 07:26] LABS: HEMATOCRIT 17.2 % (32.4-45.2); HEMOGLOBIN 5.6 GM/dL (10.7-15.3)
[2021-02-23 07:34] LABS: CHLORIDE 116 mmol/L (98-107); SODIUM 143 mmol/L (136-145)
[2021-02-23] MEDS: PANTOPRAZOLE SODIUM 80 MG in SODIUM CHLORIDE 100 ML IVPB SCH ×2 (07:35→21:17)
[2021-02-23 07:43] LABS: ALBUMIN 0.7 g/dl (3.4-5.0); ANION GAP 14 MMOL/L (8-16); CO2 13 mmol/L (21-32); GLUCOSE,RANDOM 160 mg/dL (74-106); MAGNESIUM 1.9 mg/dL (1.8-2.4); SGOT/AST 31 U/L (15-37); SGPT/ALT 36 U/L (13-61)
[2021-02-23 07:44] LABS: BILIRUBIN,TOTAL 0.2 mg/dL (0.2-1); TOT PROT 4.5 g/dl (6.4-8.2)
[2021-02-23 07:46] LABS: ALK PHOS 139 U/L (45-117); CREATININE 2.2 mg/dL (0.55-1.3)
[2021-02-23 07:47] LABS: PHOSPHOROUS 7.2 mg/dL (2.5-4.9)
[2021-02-23 07:51] LABS: CALCIUM 6.9 mg/dL (8.5-10.1)
[2021-02-23] MEDS: INSULIN SLIDING SCALE (NOVOLOG) 1 VIAL SQ SCH ×3 (08:00→17:05)
[2021-02-23] MEDS ORDERED: INSULIN (NOVOLOG) ASPART 100 UNITS/ML 10ML VIAL ONE ×3 (08:10→11:50)
[2021-02-23] MEDS ORDERED: PT OWN MED DRAWER 7, Y5N ONE ×4 (08:12→21:24)
[2021-02-23] MEDS: AMINO ACIDS 4.25%/D5W 1,000 ML IV SCH (08:31)
[2021-02-23] MEDS ORDERED: PIPERACILLIN/TAZOBACTAM 3.375 GM VIAL IVPB ONE ×3 (09:00→16:59)
[2021-02-23] MEDS ORDERED: DEXTROSE 5%-WATER - 50 ML IVPB ONE ×3 (09:00→16:59)
[2021-02-23] MEDS: AMINO ACIDS/PROTEIN HYDROLYS 30 ML LIQUID.PKT NGT SCH ×2 (09:02→17:05)
[2021-02-23] MEDS: MUPIROCIN 2% TOPICAL OINTMENT FOR DECOLONIZATION NS SCH ×2 (09:02→21:18)
[2021-02-23] MEDS: FOLIC ACID 1 MG TABLET (FP) NGT SCH (09:03)
[2021-02-23] MEDS: FERROUS SO4 300 MG/5 ML ORAL SOLN UNIT DOSE CUPS NGT SCH (09:03)
[2021-02-23] MEDS: CYANOCOBALAMIN 1,000 MCG TABLET (FP) NGT SCH (09:04)
[2021-02-23] MEDS: COLLAGENASE CLOSTRIDIUM HIST. 30 GRAMS TUBE TP SCH (09:04)
[2021-02-23] MEDS: ASCORBIC ACID 500 MG/5 ML UNIT DOSE CUP NGT SCH (09:04)
[2021-02-23] MEDS: METOCLOPRAMIDE HCL 10 MG/10 ML UNIT DOSE CUP NGT SCH ×2 (09:04→21:15)
[2021-02-23] MEDS: SILVER SULFADIAZINE 1% TOP CREAM 50 GM JAR TP SCH ×2 (09:04→21:19)
[2021-02-23] MEDS ORDERED: ERGOCALCIFEROL (VIT D2) 50,000 UNIT (1.25 MG) CAPSULE PO SCH (10:00)
[2021-02-23 10:04] LABS: ANISOCYTOSIS 1+; MACROCYTOSIS 0; PLATELET ESTIMATE DECREASED; TEAR DROP CELLS 1+; TOXIC GRANULATION 1+
[2021-02-23] MEDS: ERGOCALCIFEROL 8,000 UNITS/ML DROPSBTL NGT SCH (11:55)
[2021-02-23] MEDS ORDERED: INSULIN REGULAR HUMAN 100 UNITS/ML *VIAL ONE (17:21)
[2021-02-23 17:39] LABS: EOS % 0.1 % (0-4.5); HEMATOCRIT 21.2 % (32.4-45.2); LYMPH % 1.4 % (8-40); MCH 28.6 pg (25.7-33.7); MCHC 32.7 g/dl (32.0-36.0); MEAN CELL VOLUME 87.3 fl (80-96); MEAN PLT VOLUME 9.5 fl (7.5-11.1); MONO % 0.9 % (3.8-10.2); NEUT % 97.6 % (42.8-82.8); PLATELET COUNT 124 10^3/uL (134-434); RBC 2.43 M/mm3 (3.60-5.2); RDW 18.4 % (11.6-15.6); WHITE BLOOD COUNT 7.8 K/mm3 (4.0-10.0)
[2021-02-23 17:42] LABS: HEMOGLOBIN 6.9 GM/dL (10.7-15.3)
[2021-02-23 19:07] LABS: ANISOCYTOSIS 3+; MACROCYTOSIS 3+; PLATELET ESTIMATE DECREASED; TARGET CELLS 2+
[2021-02-23] MEDS: SODIUM BICARBONATE 8.4% 50 MEQ/50 ML DISP.SYRIN IVPUSH SCH (21:17)
[2021-02-23] MEDS: VASOPRESSIN 40 UNITS in SODIUM CHLORIDE 98 ML IVPB SCH (21:17)
[2021-02-23] MEDS: INSULIN (LEVEMIR) 100 UNITS/ML UNITS SQ SCH (21:19)
[2021-02-23] MEDS: ATORVASTATIN CA 20 MG TABLET (FP) NGT SCH (21:19)
[2021-02-23] MEDS: CHLORHEXIDINE GLUCONATE 4% CLEANSER FOR DECOLONIZATION TP SCH (21:19)
[2021-02-23 22:34] LABS: HEMATOCRIT 34.8 % (32.4-45.2); HEMOGLOBIN 11.4 GM/dL (10.7-15.3); MCH 28.4 pg (25.7-33.7); MCHC 32.7 g/dl (32.0-36.0); MEAN CELL VOLUME 86.9 fl (80-96); MEAN PLT VOLUME 9.3 fl (7.5-11.1); PLATELET COUNT 95 10^3/uL (134-434); RBC 4.01 M/mm3 (3.60-5.2); RDW 17.3 % (11.6-15.6); WHITE BLOOD COUNT 7.5 K/mm3 (4.0-10.0)
[2021-02-23 23:07] LABS: ANISOCYTOSIS 2+; MACROCYTOSIS 0; PLATELET ESTIMATE DECREASED
[2021-02-24] MEDS ORDERED: PIPERACILLIN/TAZOBACTAM 3.375 GM VIAL IVPB ONE ×4 (00:38→23:50)
[2021-02-24] MEDS ORDERED: DEXTROSE 5%-WATER - 50 ML IVPB ONE ×4 (00:38→23:50)
[2021-02-24 01:18] LABS: HEMATOCRIT 24.8 % (32.4-45.2); HEMOGLOBIN 8.3 GM/dL (10.7-15.3); MCH 28.9 pg (25.7-33.7); MCHC 33.2 g/dl (32.0-36.0); MEAN PLT VOLUME 9.8 fl (7.5-11.1); PLATELET COUNT 128 10^3/uL (134-434); RBC 2.85 M/mm3 (3.60-5.2); RDW 17.5 % (11.6-15.6); WHITE BLOOD COUNT 8.5 K/mm3 (4.0-10.0)
[2021-02-24] MEDS: FENTANYL NS IVPB 500 MCG/100 ML BAG IVPB SCH ×3 (02:12→14:41)
[2021-02-24] MEDS: PIPERACILLIN/TAZOB 3.375 GM 3.375 GM in DEXTROSE 5%-WATER - 50 ML IVPB SCH ×3 (02:12→17:49)
[2021-02-24] MEDS: HYDROCORTISONE SOD SUCCINATE 100 MG/2 ML VIAL IVPB SCH ×4 (02:13→21:36)
[2021-02-24] MEDS: MIDAZOLAM IN 0.9 % SOD.CHLORID 100 MG/100 ML PLAST..BAG IVPB SCH (02:16)
[2021-02-24] MEDS: SODIUM BICARBONATE 8.4% 50 MEQ/50 ML DISP.SYRIN IVPUSH SCH (02:16)
[2021-02-24] MEDS: NOREPINEPHRINE BITARTRATE 16,000 MCG in SODIUM CHLORIDE 484 ML IV SCH (06:06)
[2021-02-24] MEDS: PANTOPRAZOLE SODIUM 80 MG in SODIUM CHLORIDE 100 ML IVPB SCH ×3 (06:06→18:00)
[2021-02-24] MEDS: BANATROL PLUS POWDER PACKET GT SCH ×3 (06:06→21:37)
[2021-02-24] MEDS: INSULIN SLIDING SCALE (NOVOLOG) 1 VIAL SQ SCH ×3 (06:07→18:46)
[2021-02-24 07:34] LABS: HEMATOCRIT 24.3 % (32.4-45.2); MCH 29.3 pg (25.7-33.7); MCHC 33.2 g/dl (32.0-36.0); MEAN CELL VOLUME 88.3 fl (80-96); MEAN PLT VOLUME 10.1 fl (7.5-11.1); PLATELET COUNT 122 10^3/uL (134-434); RBC 2.75 M/mm3 (3.60-5.2); RDW 17.3 % (11.6-15.6); WHITE BLOOD COUNT 6.2 K/mm3 (4.0-10.0)
[2021-02-24 07:47] LABS: CHLORIDE 114 mmol/L (98-107); SODIUM 141 mmol/L (136-145)
[2021-02-24 07:49] LABS: BLOOD UREA NITROGEN 91.2 mg/dL (7-18)
[2021-02-24 07:50] LABS: ALBUMIN 0.8 g/dl (3.4-5.0); ANION GAP 14 MMOL/L (8-16); CO2 14 mmol/L (21-32); GLUCOSE,RANDOM 236 mg/dL (74-106)
[2021-02-24 07:53] LABS: CREATININE 2.9 mg/dL (0.55-1.3); PHOSPHOROUS 8.3 mg/dL (2.5-4.9); SGOT/AST 52 U/L (15-37); SGPT/ALT 41 U/L (13-61)
[2021-02-24 07:54] LABS: BILIRUBIN,TOTAL 0.2 mg/dL (0.2-1); TOT PROT 4.8 g/dl (6.4-8.2)
[2021-02-24 07:55] LABS: ALK PHOS 117 U/L (45-117)
[2021-02-24 07:58] LABS: CALCIUM 6.8 mg/dL (8.5-10.1)
[2021-02-24 08:56] LABS: ANISOCYTOSIS 2+; MACROCYTOSIS 0; PLATELET ESTIMATE DECREASED
[2021-02-24] MEDS ORDERED: VASOPRESSIN 20 UNITS/ML VIAL IV ONE ×2 (09:03→14:25)
[2021-02-24] MEDS: MUPIROCIN 2% TOPICAL OINTMENT FOR DECOLONIZATION NS SCH ×2 (09:46→21:37)
[2021-02-24] MEDS: AMINO ACIDS/PROTEIN HYDROLYS 30 ML LIQUID.PKT NGT SCH ×2 (09:46→17:49)
[2021-02-24] MEDS: ASCORBIC ACID 500 MG/5 ML UNIT DOSE CUP NGT SCH (09:47)
[2021-02-24] MEDS: METOCLOPRAMIDE HCL 10 MG/10 ML UNIT DOSE CUP NGT SCH ×2 (09:47→21:38)
[2021-02-24] MEDS: CYANOCOBALAMIN 1,000 MCG TABLET (FP) NGT SCH (09:47)
[2021-02-24] MEDS: SILVER SULFADIAZINE 1% TOP CREAM 50 GM JAR TP SCH ×2 (09:47→21:38)
[2021-02-24] MEDS: COLLAGENASE CLOSTRIDIUM HIST. 30 GRAMS TUBE TP SCH (09:48)
[2021-02-24] MEDS: FERROUS SO4 300 MG/5 ML ORAL SOLN UNIT DOSE CUPS NGT SCH (09:48)
[2021-02-24] MEDS: ERGOCALCIFEROL 8,000 UNITS/ML DROPSBTL NGT SCH (09:49)
[2021-02-24] MEDS: FOLIC ACID 1 MG TABLET (FP) NGT SCH (09:49)
[2021-02-24] MEDS ORDERED: PT OWN MED DRAWER 7, Y5N ONE ×2 (10:43→17:41)
[2021-02-24] MEDS: AMINO ACIDS 4.25%/D5W 1,000 ML IV SCH (11:30)
[2021-02-24] MEDS: VASOPRESSIN 40 UNITS in SODIUM CHLORIDE 98 ML IVPB SCH ×2 (14:35→21:36)
[2021-02-24] MEDS: CHLORHEXIDINE GLUCONATE 4% CLEANSER FOR DECOLONIZATION TP SCH (21:37)
[2021-02-24] MEDS: INSULIN (LEVEMIR) 100 UNITS/ML UNITS SQ SCH (21:37)
[2021-02-24] MEDS: ATORVASTATIN CA 20 MG TABLET (FP) NGT SCH (21:38)
[2021-02-25] MEDS: HYDROCORTISONE SOD SUCCINATE 100 MG/2 ML VIAL IVPB SCH ×4 (03:55→22:19)
[2021-02-25] MEDS: PIPERACILLIN/TAZOB 3.375 GM 3.375 GM in DEXTROSE 5%-WATER - 50 ML IVPB SCH ×3 (03:55→17:24)
[2021-02-25 06:40] LABS: HEMATOCRIT 25.4 % (32.4-45.2); HEMOGLOBIN 8.6 GM/dL (10.7-15.3); MCH 29.5 pg (25.7-33.7); MCHC 33.7 g/dl (32.0-36.0); MEAN CELL VOLUME 87.4 fl (80-96); PLATELET COUNT 126 10^3/uL (134-434); RDW 18.4 % (11.6-15.6); WHITE BLOOD COUNT 5.8 K/mm3 (4.0-10.0)
[2021-02-25] MEDS: FENTANYL NS IVPB 500 MCG/100 ML BAG IVPB SCH ×2 (06:55→14:35)
[2021-02-25] MEDS: NOREPINEPHRINE BITARTRATE 16,000 MCG in SODIUM CHLORIDE 484 ML IV SCH (06:56)
[2021-02-25] MEDS: BANATROL PLUS POWDER PACKET GT SCH ×3 (06:56→22:19)
[2021-02-25] MEDS: INSULIN SLIDING SCALE (NOVOLOG) 1 VIAL SQ SCH ×3 (06:57→18:25)
[2021-02-25 07:00] LABS: CHLORIDE 112 mmol/L (98-107); SODIUM 137 mmol/L (136-145)
[2021-02-25 07:06] LABS: ALBUMIN 0.8 g/dl (3.4-5.0); ANION GAP 13 MMOL/L (8-16); CO2 12 mmol/L (21-32); GLUCOSE,RANDOM 251 mg/dL (74-106); MAGNESIUM 1.9 mg/dL (1.8-2.4)
[2021-02-25 07:09] LABS: BILIRUBIN,DIRECT 0.2 mg/dL (0.0-0.2); CREATININE 3.5 mg/dL (0.55-1.3); SGOT/AST 48 U/L (15-37); SGPT/ALT 43 U/L (13-61)
[2021-02-25 07:11] LABS: BILIRUBIN,TOTAL 0.3 mg/dL (0.2-1); TOT PROT 5.1 g/dl (6.4-8.2)
[2021-02-25 07:12] LABS: ALK PHOS 102 U/L (45-117)
[2021-02-25 07:21] LABS: BLOOD UREA NITROGEN 107.2 mg/dL (7-18); CALCIUM 6.9 mg/dL (8.5-10.1)
[2021-02-25] MEDS ORDERED: PIPERACILLIN/TAZOBACTAM 3.375 GM VIAL IVPB ONE ×2 (08:08→16:54)
[2021-02-25] MEDS ORDERED: PT OWN MED DRAWER 7, Y5N ONE ×5 (08:08→21:59)
[2021-02-25] MEDS ORDERED: DEXTROSE 5%-WATER - 50 ML IVPB ONE ×2 (08:09→16:54)
[2021-02-25] MEDS: AMINO ACIDS/PROTEIN HYDROLYS 30 ML LIQUID.PKT NGT SCH ×2 (08:15→17:24)
[2021-02-25] MEDS: MUPIROCIN 2% TOPICAL OINTMENT FOR DECOLONIZATION NS SCH ×2 (10:09→22:33)
[2021-02-25] MEDS: FERROUS SO4 300 MG/5 ML ORAL SOLN UNIT DOSE CUPS NGT SCH (10:10)
[2021-02-25] MEDS: ERGOCALCIFEROL 8,000 UNITS/ML DROPSBTL NGT SCH (10:10)
[2021-02-25] MEDS: COLLAGENASE CLOSTRIDIUM HIST. 30 GRAMS TUBE TP SCH (10:11)
[2021-02-25] MEDS: FOLIC ACID 1 MG TABLET (FP) NGT SCH (10:11)
[2021-02-25] MEDS: METOCLOPRAMIDE HCL 10 MG/10 ML UNIT DOSE CUP NGT SCH ×2 (10:11→22:19)
[2021-02-25] MEDS: SILVER SULFADIAZINE 1% TOP CREAM 50 GM JAR TP SCH ×2 (10:11→22:34)
[2021-02-25] MEDS: CYANOCOBALAMIN 1,000 MCG TABLET (FP) NGT SCH (10:12)
[2021-02-25] MEDS: ASCORBIC ACID 500 MG/5 ML UNIT DOSE CUP NGT SCH (10:12)
[2021-02-25] MEDS: AMINO ACIDS 4.25%/D5W 1,000 ML IV SCH (11:12)
[2021-02-25] MEDS ORDERED: VASOPRESSIN 20 UNITS/ML VIAL IV ONE (11:17)
[2021-02-25] MEDS: VASOPRESSIN 40 UNITS in SODIUM CHLORIDE 98 ML IVPB SCH (13:00)
[2021-02-25] MEDS: MIDAZOLAM IN 0.9 % SOD.CHLORID 100 MG/100 ML PLAST..BAG IVPB SCH (18:27)
[2021-02-25] MEDS: ATORVASTATIN CA 20 MG TABLET (FP) NGT SCH (22:19)
[2021-02-25] MEDS: INSULIN (LEVEMIR) 100 UNITS/ML UNITS SQ SCH (22:21)
[2021-02-25] MEDS: CHLORHEXIDINE GLUCONATE 4% CLEANSER FOR DECOLONIZATION TP SCH (22:33)
[2021-02-26] MEDS: FENTANYL NS IVPB 500 MCG/100 ML BAG IVPB SCH ×3 (00:48→16:46)
[2021-02-26] MEDS: VASOPRESSIN 40 UNITS in SODIUM CHLORIDE 98 ML IVPB SCH (01:49)
[2021-02-26] MEDS: HYDROCORTISONE SOD SUCCINATE 100 MG/2 ML VIAL IVPB SCH ×4 (02:34→21:58)
[2021-02-26] MEDS: MIDAZOLAM IN 0.9 % SOD.CHLORID 100 MG/100 ML PLAST..BAG IVPB SCH (03:28)
[2021-02-26] MEDS ORDERED: MEROPENEM 1 GM VIAL (RESTRICTED TO ID) IVPB ONE (05:41)
[2021-02-26] MEDS ORDERED: DEXTROSE 5%-WATER 100 ML IVPB ONE (05:41)
[2021-02-26] MEDS: MEROPENEM 1 GM in DEXTROSE 5%-WATER 100 ML IVPB SCH (05:49)
[2021-02-26] MEDS ORDERED: PT OWN MED DRAWER 7, Y5N ONE ×4 (06:04→22:04)
[2021-02-26] MEDS: AMINO ACIDS 4.25%/D5W 1,000 ML IV SCH ×3 (06:29→19:29)
[2021-02-26] MEDS: BANATROL PLUS POWDER PACKET GT SCH ×3 (06:29→22:00)
[2021-02-26] MEDS: INSULIN SLIDING SCALE (NOVOLOG) 1 VIAL SQ SCH ×3 (06:36→17:26)
[2021-02-26 06:41] LABS: HEMATOCRIT 26.4 % (32.4-45.2); HEMOGLOBIN 8.9 GM/dL (10.7-15.3); MCH 29.3 pg (25.7-33.7); MCHC 33.7 g/dl (32.0-36.0); MEAN CELL VOLUME 86.9 fl (80-96); PLATELET COUNT 138 10^3/uL (134-434); RBC 3.03 M/mm3 (3.60-5.2); RDW 18.3 % (11.6-15.6); WHITE BLOOD COUNT 7.9 K/mm3 (4.0-10.0)
[2021-02-26 06:53] LABS: CHLORIDE 108 mmol/L (98-107); SODIUM 134 mmol/L (136-145)
[2021-02-26 07:08] LABS: CALCIUM 7.2 mg/dL (8.5-10.1)
[2021-02-26 07:09] LABS: ALBUMIN 0.8 g/dl (3.4-5.0); ANION GAP 15 MMOL/L (8-16); CO2 11 mmol/L (21-32); GLUCOSE,RANDOM 264 mg/dL (74-106)
[2021-02-26 07:11] LABS: CREATININE 3.9 mg/dL (0.55-1.3); PHOSPHOROUS 7.8 mg/dL (2.5-4.9)
[2021-02-26 07:12] LABS: SGOT/AST 38 U/L (15-37); SGPT/ALT 43 U/L (13-61)
[2021-02-26 07:13] LABS: BILIRUBIN,TOTAL 0.3 mg/dL (0.2-1)
[2021-02-26 07:14] LABS: ALK PHOS 109 U/L (45-117)
[2021-02-26 07:39] LABS: BLOOD UREA NITROGEN 118.3 mg/dL (7-18)
[2021-02-26] MEDS: FERROUS SO4 300 MG/5 ML ORAL SOLN UNIT DOSE CUPS NGT SCH (09:27)
[2021-02-26] MEDS: ERGOCALCIFEROL 8,000 UNITS/ML DROPSBTL NGT SCH (09:27)
[2021-02-26] MEDS: AMINO ACIDS/PROTEIN HYDROLYS 30 ML LIQUID.PKT NGT SCH ×2 (09:27→18:05)
[2021-02-26] MEDS: FOLIC ACID 1 MG TABLET (FP) NGT SCH (09:27)
[2021-02-26] MEDS: NOREPINEPHRINE BITARTRATE 16,000 MCG in SODIUM CHLORIDE 484 ML IV SCH (09:28)
[2021-02-26] MEDS: ASCORBIC ACID 500 MG/5 ML UNIT DOSE CUP NGT SCH (09:28)
[2021-02-26] MEDS: METOCLOPRAMIDE HCL 10 MG/10 ML UNIT DOSE CUP NGT SCH ×2 (09:28→22:00)
[2021-02-26] MEDS: SILVER SULFADIAZINE 1% TOP CREAM 50 GM JAR TP SCH ×2 (09:28→22:00)
[2021-02-26] MEDS: COLLAGENASE CLOSTRIDIUM HIST. 30 GRAMS TUBE TP SCH (09:28)
[2021-02-26] MEDS: CYANOCOBALAMIN 1,000 MCG TABLET (FP) NGT SCH (09:28)
[2021-02-26] MEDS ORDERED: VASOPRESSIN 20 UNITS/ML VIAL IV ONE (10:19)
[2021-02-26] MEDS: SODIUM BICARBONATE 8.4% 50 MEQ/50 ML DISP.SYRIN IVPUSH SCH ×2 (15:27→18:42)
[2021-02-26] MEDS ORDERED: SODIUM BICARBONATE 8.4% 50 MEQ/50 ML VIAL ONE (17:40)
[2021-02-26] MEDS ORDERED: SODIUM CHLORIDE 0.9% 500 ML INFUS.BAG IV ONE (20:14)
[2021-02-26] MEDS: ATORVASTATIN CA 20 MG TABLET (FP) NGT SCH (22:01)
[2021-02-26] MEDS: CHLORHEXIDINE GLUCONATE 4% CLEANSER FOR DECOLONIZATION TP SCH (22:01)
[2021-02-26] MEDS: INSULIN (LEVEMIR) 100 UNITS/ML UNITS SQ SCH (22:01)
[2021-02-27] MEDS: SODIUM BICARBONATE 8.4% 50 MEQ/50 ML DISP.SYRIN IVPUSH SCH ×4 (00:18→21:08)
[2021-02-27] MEDS: FENTANYL NS IVPB 500 MCG/100 ML BAG IVPB SCH ×4 (00:19→21:09)
[2021-02-27] MEDS: VASOPRESSIN 40 UNITS in SODIUM CHLORIDE 98 ML IVPB SCH ×2 (00:22→21:08)
[2021-02-27] MEDS: HYDROCORTISONE SOD SUCCINATE 100 MG/2 ML VIAL IVPB SCH ×4 (02:11→21:08)
[2021-02-27] MEDS ORDERED: MEROPENEM 1 GM VIAL (RESTRICTED TO ID) IVPB ONE (05:09)
[2021-02-27] MEDS ORDERED: DEXTROSE 5%-WATER 100 ML IVPB ONE (05:09)
[2021-02-27] MEDS: BANATROL PLUS POWDER PACKET GT SCH (05:14)
[2021-02-27] MEDS: MEROPENEM 1 GM in DEXTROSE 5%-WATER 100 ML IVPB SCH (05:14)
[2021-02-27] MEDS: INSULIN SLIDING SCALE (NOVOLOG) 1 VIAL SQ SCH ×3 (06:06→16:31)
[2021-02-27 06:23] LABS: HEMATOCRIT 25.1 % (32.4-45.2); HEMOGLOBIN 8.6 GM/dL (10.7-15.3); MCH 29.5 pg (25.7-33.7); MCHC 34.1 g/dl (32.0-36.0); MEAN CELL VOLUME 86.7 fl (80-96); PLATELET COUNT 149 10^3/uL (134-434); WHITE BLOOD COUNT 10.7 K/mm3 (4.0-10.0)
[2021-02-27] MEDS ORDERED: PT OWN MED DRAWER 7, Y5N ONE ×4 (06:33→21:03)
[2021-02-27 06:35] LABS: CHLORIDE 104 mmol/L (98-107); SODIUM 134 mmol/L (136-145)
[2021-02-27 06:37] LABS: CALCIUM 7.4 mg/dL (8.5-10.1)
[2021-02-27 06:38] LABS: ALBUMIN 0.8 g/dl (3.4-5.0); ANION GAP 15 MMOL/L (8-16); CO2 14 mmol/L (21-32); GLUCOSE,RANDOM 222 mg/dL (74-106); MAGNESIUM 1.8 mg/dL (1.8-2.4)
[2021-02-27 06:40] LABS: SGPT/ALT 41 U/L (13-61)
[2021-02-27 06:41] LABS: PHOSPHOROUS 6.8 mg/dL (2.5-4.9); SGOT/AST 34 U/L (15-37)
[2021-02-27 06:42] LABS: BILIRUBIN,TOTAL 0.2 mg/dL (0.2-1)
[2021-02-27 06:43] LABS: ALK PHOS 90 U/L (45-117)
[2021-02-27 06:46] LABS: BLOOD UREA NITROGEN 129.7 mg/dL (7-18)
[2021-02-27] MEDS ORDERED: POTASSIUM CHLORIDE 20 MEQ PREMIX IVPB 100 ML IVPB ONE (06:54)
[2021-02-27] MEDS ORDERED: MORPHINE SULFATE 2 MG/ML VIAL IVPUSH PRN (07:25)
[2021-02-27] MEDS: MIDAZOLAM IN 0.9 % SOD.CHLORID 100 MG/100 ML PLAST..BAG IVPB SCH (07:33)
[2021-02-27] MEDS: AMINO ACIDS 4.25%/D5W 1,000 ML IV SCH (07:33)
[2021-02-27] MEDS: AMINO ACIDS/PROTEIN HYDROLYS 30 ML LIQUID.PKT NGT SCH ×2 (07:38→17:43)
[2021-02-27] MEDS: NOREPINEPHRINE BITARTRATE 16,000 MCG in SODIUM CHLORIDE 484 ML IV SCH (07:38)
[2021-02-27] MEDS: CYANOCOBALAMIN 1,000 MCG TABLET (FP) NGT SCH (09:41)
[2021-02-27] MEDS: METOCLOPRAMIDE HCL 10 MG/10 ML UNIT DOSE CUP NGT SCH ×2 (09:41→21:09)
[2021-02-27] MEDS: SILVER SULFADIAZINE 1% TOP CREAM 50 GM JAR TP SCH ×2 (09:42→21:09)
[2021-02-27] MEDS: ASCORBIC ACID 500 MG/5 ML UNIT DOSE CUP NGT SCH (09:44)
[2021-02-27 10:50] LABS: ANISOCYTOSIS 1+; MACROCYTOSIS 0; PLATELET ESTIMATE DECREASED
[2021-02-27] MEDS ORDERED: KCL 10 MEQ IVPB 10 MEQ/100 ML INFUS.BAG IVPB SCH (15:30)
[2021-02-27] MEDS: COLLAGENASE CLOSTRIDIUM HIST. 30 GRAMS TUBE TP SCH (15:50)
[2021-02-27] MEDS ORDERED: INSULIN (NOVOLOG) ASPART 100 UNITS/ML 10ML VIAL ONE (16:24)
[2021-02-27] MEDS: CHLORHEXIDINE GLUCONATE 4% CLEANSER FOR DECOLONIZATION TP SCH (21:08)
[2021-02-27] MEDS: ATORVASTATIN CA 20 MG TABLET (FP) NGT SCH (21:09)
[2021-02-27] MEDS: INSULIN (LEVEMIR) 100 UNITS/ML UNITS SQ SCH (21:11)
[2021-02-28] MEDS ORDERED: SODIUM BICARBONATE 8.4% 50 MEQ/50 ML VIAL ONE ×2 (01:08→16:11)
[2021-02-28] MEDS: HYDROCORTISONE SOD SUCCINATE 100 MG/2 ML VIAL IVPB SCH ×3 (02:25→21:18)
[2021-02-28] MEDS: FENTANYL NS IVPB 500 MCG/100 ML BAG IVPB SCH ×3 (03:00→08:21)
[2021-02-28] MEDS: NOREPINEPHRINE BITARTRATE 16,000 MCG in SODIUM CHLORIDE 484 ML IV SCH (05:21)
[2021-02-28] MEDS ORDERED: MEROPENEM 1 GM VIAL (RESTRICTED TO ID) IVPB ONE (05:23)
[2021-02-28] MEDS ORDERED: DEXTROSE 5%-WATER 100 ML IVPB ONE (05:23)
[2021-02-28] MEDS: MEROPENEM 1 GM in DEXTROSE 5%-WATER 100 ML IVPB SCH (05:25)
[2021-02-28] MEDS: INSULIN SLIDING SCALE (NOVOLOG) 1 VIAL SQ SCH ×3 (06:17→17:03)
[2021-02-28 07:17] LABS: HEMATOCRIT 22.7 % (32.4-45.2); HEMOGLOBIN 7.7 GM/dL (10.7-15.3); MCH 29.2 pg (25.7-33.7); MCHC 33.8 g/dl (32.0-36.0); MEAN CELL VOLUME 86.4 fl (80-96); MEAN PLT VOLUME 10.2 fl (7.5-11.1); PLATELET COUNT 155 10^3/uL (134-434); RBC 2.63 M/mm3 (3.60-5.2); RDW 18.3 % (11.6-15.6)
[2021-02-28] MEDS ORDERED: PT OWN MED DRAWER 7, Y5N ONE ×3 (07:30→21:13)
[2021-02-28] MEDS: AMINO ACIDS 4.25%/D5W 1,000 ML IV SCH (07:40)
[2021-02-28 07:45] LABS: CHLORIDE 101 mmol/L (98-107); SODIUM 131 mmol/L (136-145)
[2021-02-28 07:47] LABS: CALCIUM 7.7 mg/dL (8.5-10.1)
[2021-02-28 07:48] LABS: ALBUMIN 0.9 g/dl (3.4-5.0); ANION GAP 16 MMOL/L (8-16); CO2 14 mmol/L (21-32); GLUCOSE,RANDOM 217 mg/dL (74-106); MAGNESIUM 1.7 mg/dL (1.8-2.4)
[2021-02-28 07:51] LABS: CREATININE 4.4 mg/dL (0.55-1.3); PHOSPHOROUS 6.7 mg/dL (2.5-4.9); SGOT/AST 39 U/L (15-37); SGPT/ALT 48 U/L (13-61)
[2021-02-28 07:52] LABS: BILIRUBIN,TOTAL 0.3 mg/dL (0.2-1)
[2021-02-28 07:54] LABS: ALK PHOS 87 U/L (45-117)
[2021-02-28 07:57] LABS: BLOOD UREA NITROGEN 149.9 mg/dL (7-18)
[2021-02-28] MEDS ORDERED: SODIUM BICARBONATE 8.4% 50 MEQ/50 ML VIAL IVPUSH ONE (08:07)
[2021-02-28] MEDS ORDERED: MAGNESIUM SULF 50% (8.12 MEQ/2 ML-1 GM VIAL) IVPB ONE (08:45)
[2021-02-28] MEDS: AMINO ACIDS/PROTEIN HYDROLYS 30 ML LIQUID.PKT NGT SCH ×3 (08:55→17:34)
[2021-02-28 09:02] LABS: ANISOCYTOSIS 0; MACROCYTOSIS 0; PLATELET ESTIMATE DECREASED
[2021-02-28] MEDS ORDERED: ACETAMINOPHEN 1000 MG/100 ML VIAL (NON FORMULARY) IVPB ONE (09:03)
[2021-02-28] MEDS ORDERED: FUROSEMIDE 40 MG/4 ML INJECTABLE VIAL IVPUSH ONE (10:30)
[2021-02-28] MEDS: COLLAGENASE CLOSTRIDIUM HIST. 30 GRAMS TUBE TP SCH (10:42)
[2021-02-28] MEDS: METOCLOPRAMIDE HCL 10 MG/10 ML UNIT DOSE CUP NGT SCH ×2 (10:43→21:18)
[2021-02-28] MEDS: ASCORBIC ACID 500 MG/5 ML UNIT DOSE CUP NGT SCH (10:43)
[2021-02-28] MEDS: CYANOCOBALAMIN 1,000 MCG TABLET (FP) NGT SCH (10:43)
[2021-02-28] MEDS: CALCIUM ACETATE 667 MG CAPSULE (FP) PO SCH ×2 (10:59→16:30)
[2021-02-28] MEDS: SILVER SULFADIAZINE 1% TOP CREAM 50 GM JAR TP SCH ×2 (13:36→21:18)
[2021-02-28] MEDS: SODIUM BICARBONATE 8.4% 50 MEQ/50 ML DISP.SYRIN IVPUSH SCH ×3 (13:56→17:21)
[2021-02-28] MEDS: VASOPRESSIN 40 UNITS in SODIUM CHLORIDE 98 ML IVPB SCH (21:17)
[2021-02-28] MEDS: CHLORHEXIDINE GLUCONATE 4% CLEANSER FOR DECOLONIZATION TP SCH (21:17)
[2021-02-28] MEDS: INSULIN (LEVEMIR) 100 UNITS/ML UNITS SQ SCH (21:17)
[2021-02-28] MEDS: ATORVASTATIN CA 20 MG TABLET (FP) NGT SCH (21:18)
[2021-03-01] MEDS: AMINO ACIDS 4.25%/D5W 1,000 ML IV SCH ×3 (01:00→17:11)
[2021-03-01] MEDS ORDERED: PT OWN MED DRAWER 7, Y5N ONE ×4 (01:11→20:46)
[2021-03-01] MEDS: NOREPINEPHRINE BITARTRATE 16,000 MCG in SODIUM CHLORIDE 484 ML IV SCH (05:58)
[2021-03-01] MEDS: INSULIN SLIDING SCALE (NOVOLOG) 1 VIAL SQ SCH ×3 (06:07→17:27)
[2021-03-01 07:54] LABS: HEMATOCRIT 24.2 % (32.4-45.2); HEMOGLOBIN 8.2 GM/dL (10.7-15.3); MEAN CELL VOLUME 85.3 fl (80-96); MEAN PLT VOLUME 9.8 fl (7.5-11.1); PLATELET COUNT 134 10^3/uL (134-434); RBC 2.83 M/mm3 (3.60-5.2); RDW 18.1 % (11.6-15.6); WHITE BLOOD COUNT 11.4 K/mm3 (4.0-10.0)
[2021-03-01 08:15] LABS: CHLORIDE 98 mmol/L (98-107); SODIUM 130 mmol/L (136-145)
[2021-03-01 08:17] LABS: ANION GAP 17 MMOL/L (8-16); CALCIUM 8.2 mg/dL (8.5-10.1); CO2 15 mmol/L (21-32); GLUCOSE,RANDOM 200 mg/dL (74-106)
[2021-03-01 08:18] LABS: ALBUMIN 0.8 g/dl (3.4-5.0); MAGNESIUM 2.3 mg/dL (1.8-2.4)
[2021-03-01 08:20] LABS: SGOT/AST 39 U/L (15-37); SGPT/ALT 45 U/L (13-61)
[2021-03-01 08:21] LABS: CREATININE 4.7 mg/dL (0.55-1.3); PHOSPHOROUS 6.8 mg/dL (2.5-4.9)
[2021-03-01 08:22] LABS: BILIRUBIN,TOTAL 0.4 mg/dL (0.2-1); TOT PROT 4.7 g/dl (6.4-8.2)
[2021-03-01 08:23] LABS: ALK PHOS 108 U/L (45-117)
[2021-03-01 09:04] LABS: BLOOD UREA NITROGEN 164.8 mg/dL (7-18)
[2021-03-01 09:07] LABS: ANISOCYTOSIS 1+; MACROCYTOSIS 1+; PLATELET ESTIMATE DECREASED
[2021-03-01] MEDS: COLLAGENASE CLOSTRIDIUM HIST. 30 GRAMS TUBE TP SCH (10:14)
[2021-03-01] MEDS: AMINO ACIDS/PROTEIN HYDROLYS 30 ML LIQUID.PKT NGT SCH ×2 (10:14→17:02)
[2021-03-01] MEDS: METOCLOPRAMIDE HCL 10 MG/10 ML UNIT DOSE CUP NGT SCH ×2 (10:14→21:32)
[2021-03-01] MEDS: CALCIUM ACETATE 667 MG CAPSULE (FP) PO SCH ×3 (10:14→17:02)
[2021-03-01] MEDS: HYDROCORTISONE SOD SUCCINATE 100 MG/2 ML VIAL IVPB SCH ×2 (10:15→21:06)
[2021-03-01] MEDS: SILVER SULFADIAZINE 1% TOP CREAM 50 GM JAR TP SCH ×2 (10:15→21:19)
[2021-03-01] MEDS: CYANOCOBALAMIN 1,000 MCG TABLET (FP) NGT SCH (10:15)
[2021-03-01] MEDS: ASCORBIC ACID 500 MG/5 ML UNIT DOSE CUP NGT SCH (10:16)
[2021-03-01] MEDS: SODIUM BICARBONATE 8.4% 50 MEQ/50 ML DISP.SYRIN IVPUSH SCH ×3 (14:00→21:30)
[2021-03-01] MEDS: CHLORHEXIDINE GLUCONATE 4% CLEANSER FOR DECOLONIZATION TP SCH (21:05)
[2021-03-01] MEDS: VASOPRESSIN 40 UNITS in SODIUM CHLORIDE 98 ML IVPB SCH (21:05)
[2021-03-01] MEDS: ATORVASTATIN CA 20 MG TABLET (FP) NGT SCH (21:07)
[2021-03-01] MEDS: INSULIN (LEVEMIR) 100 UNITS/ML UNITS SQ SCH (21:30)
[2021-03-02] MEDS: AMINO ACIDS 4.25%/D5W 1,000 ML IV SCH ×2 (03:00→17:53)
[2021-03-02] MEDS: NOREPINEPHRINE BITARTRATE 16,000 MCG in SODIUM CHLORIDE 484 ML IV SCH (06:25)
[2021-03-02] MEDS: INSULIN SLIDING SCALE (NOVOLOG) 1 VIAL SQ SCH ×3 (06:25→18:06)
[2021-03-02 07:03] LABS: HEMATOCRIT 28.3 % (32.4-45.2); HEMOGLOBIN 9.6 GM/dL (10.7-15.3); MCH 28.4 pg (25.7-33.7); MEAN CELL VOLUME 83.6 fl (80-96); MEAN PLT VOLUME 10.1 fl (7.5-11.1); PLATELET COUNT 195 10^3/uL (134-434); RBC 3.38 M/mm3 (3.60-5.2); WHITE BLOOD COUNT 16.1 K/mm3 (4.0-10.0)
[2021-03-02 07:18] LABS: CHLORIDE 95 mmol/L (98-107); SODIUM 126 mmol/L (136-145)
[2021-03-02 07:21] LABS: ALBUMIN 0.9 g/dl (3.4-5.0); ANION GAP 18 MMOL/L (8-16); CALCIUM 8.6 mg/dL (8.5-10.1); CO2 13 mmol/L (21-32); GLUCOSE,RANDOM 152 mg/dL (74-106)
[2021-03-02 07:24] LABS: CREATININE 4.9 mg/dL (0.55-1.3); SGOT/AST 40 U/L (15-37); SGPT/ALT 50 U/L (13-61)
[2021-03-02 07:25] LABS: PHOSPHOROUS 6.7 mg/dL (2.5-4.9)
[2021-03-02 07:26] LABS: BILIRUBIN,TOTAL 0.5 mg/dL (0.2-1)
[2021-03-02 07:40] LABS: ALK PHOS 147 U/L (45-117)
[2021-03-02] MEDS ORDERED: POTASSIUM CHLORIDE ORAL LIQUID 20 MEQ/15 ML PO ONE (07:57)
[2021-03-02] MEDS ORDERED: KCL 10 MEQ IVPB 10 MEQ/100 ML INFUS.BAG IVPB SCH (08:00)
[2021-03-02 08:02] LABS: BLOOD UREA NITROGEN 188.7 mg/dL (7-18)
[2021-03-02 08:54] LABS: ANISOCYTOSIS 1+; MACROCYTOSIS 1+; OVALOCYTE 1+; PLATELET ESTIMATE NORMAL
[2021-03-02] MEDS ORDERED: PT OWN MED DRAWER 7, Y5N ONE (09:22)
[2021-03-02] MEDS: CALCIUM ACETATE 667 MG CAPSULE (FP) PO SCH ×3 (09:28→17:53)
[2021-03-02] MEDS: AMINO ACIDS/PROTEIN HYDROLYS 30 ML LIQUID.PKT NGT SCH ×2 (09:30→17:53)
[2021-03-02] MEDS: SODIUM BICARBONATE 8.4% 50 MEQ/50 ML DISP.SYRIN IVPUSH SCH ×2 (09:31→11:59)
[2021-03-02] MEDS: METOCLOPRAMIDE HCL 10 MG/10 ML UNIT DOSE CUP NGT SCH ×2 (09:31→21:52)
[2021-03-02] MEDS: SILVER SULFADIAZINE 1% TOP CREAM 50 GM JAR TP SCH ×2 (09:33→21:53)
[2021-03-02] MEDS: COLLAGENASE CLOSTRIDIUM HIST. 30 GRAMS TUBE TP SCH (09:33)
[2021-03-02] MEDS: HYDROCORTISONE SOD SUCCINATE 100 MG/2 ML VIAL IVPB SCH ×2 (09:33→21:53)
[2021-03-02] MEDS: ASCORBIC ACID 500 MG/5 ML UNIT DOSE CUP NGT SCH (09:36)
[2021-03-02] MEDS: CYANOCOBALAMIN 1,000 MCG TABLET (FP) NGT SCH (09:36)
[2021-03-02] MEDS: CHLORHEXIDINE GLUCONATE 4% CLEANSER FOR DECOLONIZATION TP SCH (21:50)
[2021-03-02] MEDS: ATORVASTATIN CA 20 MG TABLET (FP) NGT SCH (21:52)
[2021-03-02] MEDS: INSULIN (LEVEMIR) 100 UNITS/ML UNITS SQ SCH ×2 (22:18→23:55)
[2021-03-02] MEDS ORDERED: NOREPINEPHRINE NS PREMIX 8,000 MCG/500 ML BAG IVPB SCH (22:45)
[2021-03-02] MEDS ORDERED: SODIUM CHLORIDE 250 ML IV PRN (23:22)
[2021-03-03] MEDS ORDERED: DEXTROSE 50%-WATER - 25 GM/50 ML VIAL IVPUSH ONE (06:06)
[2021-03-03] MEDS ORDERED: DEXTROSE 50%-WATER 25 GM/50 ML DISP.SYRIN ONE (06:07)
[2021-03-03] MEDS: INSULIN SLIDING SCALE (NOVOLOG) 1 VIAL SQ SCH ×3 (06:08→17:06)
[2021-03-03 06:33] LABS: BASO % 0.1 % (0-2.0); HEMATOCRIT 22.8 % (32.4-45.2); HEMOGLOBIN 7.8 GM/dL (10.7-15.3); LYMPH % 0.4 % (8-40); MCH 28.1 pg (25.7-33.7); MCHC 34.1 g/dl (32.0-36.0); MEAN CELL VOLUME 82.4 fl (80-96); MEAN PLT VOLUME 9.8 fl (7.5-11.1); MONO % 0.2 % (3.8-10.2); NEUT % 99.3 % (42.8-82.8); PLATELET COUNT 137 10^3/uL (134-434); RBC 2.77 M/mm3 (3.60-5.2); RDW 17.3 % (11.6-15.6); WHITE BLOOD COUNT 16.6 K/mm3 (4.0-10.0)
[2021-03-03 06:54] LABS: CHLORIDE 97 mmol/L (98-107); SODIUM 131 mmol/L (136-145)
[2021-03-03 06:59] LABS: CALCIUM 7.8 mg/dL (8.5-10.1)
[2021-03-03 07:00] LABS: ALBUMIN 0.7 g/dl (3.4-5.0); ANION GAP 13 MMOL/L (8-16); CO2 21 mmol/L (21-32); GLUCOSE,RANDOM 59 mg/dL (74-106)
[2021-03-03 07:02] LABS: SGPT/ALT 41 U/L (13-61)
[2021-03-03 07:03] LABS: CREATININE 3.9 mg/dL (0.55-1.3); PHOSPHOROUS 5.4 mg/dL (2.5-4.9); SGOT/AST 42 U/L (15-37)
[2021-03-03 07:04] LABS: BILIRUBIN,TOTAL 0.3 mg/dL (0.2-1); TOT PROT 4.1 g/dl (6.4-8.2)
[2021-03-03 07:05] LABS: ALK PHOS 153 U/L (45-117)
[2021-03-03 07:06] LABS: BLOOD UREA NITROGEN 143.8 mg/dL (7-18)
[2021-03-03] MEDS ORDERED: PT OWN MED DRAWER 7, Y5N ONE ×2 (09:01→09:02)
[2021-03-03] MEDS: HYDROCORTISONE SOD SUCCINATE 100 MG/2 ML VIAL IVPB SCH (09:06)
[2021-03-03] MEDS: CALCIUM ACETATE 667 MG CAPSULE (FP) PO SCH ×3 (09:06→17:23)
[2021-03-03] MEDS: AMINO ACIDS/PROTEIN HYDROLYS 30 ML LIQUID.PKT NGT SCH ×2 (09:06→17:23)
[2021-03-03] MEDS: CYANOCOBALAMIN 1,000 MCG TABLET (FP) NGT SCH (09:07)
[2021-03-03] MEDS: ASCORBIC ACID 500 MG/5 ML UNIT DOSE CUP NGT SCH (09:07)
[2021-03-03] MEDS: COLLAGENASE CLOSTRIDIUM HIST. 30 GRAMS TUBE TP SCH (10:35)
[2021-03-03] MEDS: SILVER SULFADIAZINE 1% TOP CREAM 50 GM JAR TP SCH ×2 (10:35→21:05)
[2021-03-03] MEDS: AMINO ACIDS 4.25%/D5W 1,000 ML IV SCH (10:51)
[2021-03-03] MEDS ORDERED: ACETAMINOPHEN 1000 MG/100 ML VIAL (NON FORMULARY) IVPB PRN ×2 (20:03→20:07)
[2021-03-03] MEDS ORDERED: VANCOMYCIN 1 GM in D5W (PRE-DOCKED) 1,000 MG/250 ML IVPB ONE (20:09)
[2021-03-03] MEDS: ATORVASTATIN CA 20 MG TABLET (FP) NGT SCH (21:02)
[2021-03-03] MEDS: CHLORHEXIDINE GLUCONATE 4% CLEANSER FOR DECOLONIZATION TP SCH (21:04)
[2021-03-03] MEDS: MEROPENEM 1 GM in DEXTROSE 5%-WATER 100 ML IVPB SCH (21:08)
[2021-03-03] MEDS ORDERED: DEXTROSE 5%-WATER 100 ML IVPB ONE (21:08)
[2021-03-03] MEDS ORDERED: MEROPENEM 1 GM VIAL (RESTRICTED TO ID) IVPB ONE (21:08)
[2021-03-04] MEDS ORDERED: RAPID SEQUENCE INTUBATION KIT NR ONE (05:45)
[2021-03-04] MEDS ORDERED: PROPOFOL 1,000,000 MCG/100 ML VIAL ONE (05:45)
[2021-03-04] MEDS ORDERED: FENTANYL IVPB 500 MCG/100 ML BAG IVPB SCH (06:00)
[2021-03-04] MEDS: MIDAZOLAM IN 0.9 % SOD.CHLORID 100 MG/100 ML PLAST..BAG IVPB SCH (06:43)
[2021-03-04] MEDS: FENTANYL NS IVPB 500 MCG/100 ML BAG IVPB SCH ×3 (06:44→18:02)
[2021-03-04] MEDS ORDERED: VECURONIUM BROMIDE 20 MG/20 ML VIAL ONE (07:14)
[2021-03-04] MEDS: INSULIN SLIDING SCALE (NOVOLOG) 1 VIAL SQ SCH ×3 (07:58→16:33)
[2021-03-04] MEDS ORDERED: VECURONIUM BROMIDE 50 MG/50 ML VIAL IVPUSH ONE (08:08)
[2021-03-04] MEDS: NOREPINEPHRINE BITARTRATE 16,000 MCG in SODIUM CHLORIDE 484 ML IV SCH (08:21)
[2021-03-04] MEDS: AMINO ACIDS/PROTEIN HYDROLYS 30 ML LIQUID.PKT NGT SCH ×2 (09:00→18:02)
[2021-03-04] MEDS: CALCIUM ACETATE 667 MG CAPSULE (FP) PO SCH ×3 (09:00→18:02)
[2021-03-04] MEDS ORDERED: PT OWN MED DRAWER 7, Y5N ONE ×2 (09:28→13:31)
[2021-03-04] MEDS: ASCORBIC ACID 500 MG/5 ML UNIT DOSE CUP NGT SCH (09:31)
[2021-03-04 10:22] LABS: ARTERIAL BLD GAS O2 SATURATION 85.8 % (95-98); ARTERIAL BLOOD GAS BASE EXCESS -9.3 mmol/L (-2-2); ARTERIAL BLOOD GAS PO2 64.3 mmHg (80-100)
[2021-03-04 10:32] LABS: ARTERIAL BLOOD GAS pH 7.157 (7.350-7.450)
[2021-03-04 10:38] LABS: HEMATOCRIT 23.3 % (32.4-45.2); HEMOGLOBIN 7.9 GM/dL (10.7-15.3); MCH 28.2 pg (25.7-33.7); MCHC 33.9 g/dl (32.0-36.0); MEAN CELL VOLUME 83.1 fl (80-96); MEAN PLT VOLUME 10.3 fl (7.5-11.1); PLATELET COUNT 169 10^3/uL (134-434); RBC 2.81 M/mm3 (3.60-5.2); RDW 17.6 % (11.6-15.6); WHITE BLOOD COUNT 18.6 K/mm3 (4.0-10.0)
[2021-03-04 10:56] LABS: CHLORIDE 94 mmol/L (98-107); SODIUM 130 mmol/L (136-145)
[2021-03-04 10:58] LABS: CALCIUM 8.2 mg/dL (8.5-10.1)
[2021-03-04 10:59] LABS: ALBUMIN 0.7 g/dl (3.4-5.0); ANION GAP 16 MMOL/L (8-16); CO2 19 mmol/L (21-32); GLUCOSE,RANDOM 90 mg/dL (74-106); MAGNESIUM 1.9 mg/dL (1.8-2.4)
[2021-03-04 11:02] LABS: CREATININE 4.3 mg/dL (0.55-1.3); SGOT/AST 58 U/L (15-37); SGPT/ALT 37 U/L (13-61)
[2021-03-04 11:03] LABS: BILIRUBIN,TOTAL 0.3 mg/dL (0.2-1)
[2021-03-04 11:04] LABS: TOT PROT 4.4 g/dl (6.4-8.2)
[2021-03-04 11:10] LABS: ALK PHOS 225 U/L (45-117)
[2021-03-04 11:14] LABS: BLOOD UREA NITROGEN 159.6 mg/dL (7-18)
[2021-03-04 11:50] LABS: ANISOCYTOSIS 0; HELMET CELLS 0; HOWELL-JOLLY BODIES 0; MACROCYTOSIS 0; OVALOCYTE 0; PLATELET ESTIMATE NORMAL; ROULEAU 0; SICKELED CELLS 0; TARGET CELLS 0; TEAR DROP CELLS 0; TOXIC GRANULATION 0
[2021-03-04] MEDS: COLLAGENASE CLOSTRIDIUM HIST. 30 GRAMS TUBE TP SCH (12:06)
[2021-03-04] MEDS: SILVER SULFADIAZINE 1% TOP CREAM 50 GM JAR TP SCH ×2 (12:07→21:15)
[2021-03-04] MEDS: CYANOCOBALAMIN 1,000 MCG TABLET (FP) NGT SCH (13:02)
[2021-03-04] MEDS ORDERED: SODIUM CHLORIDE 250 ML IV PRN (15:20)
[2021-03-04] MEDS ORDERED: DEXTROSE 50%-WATER - 25 GM/50 ML VIAL IVPUSH ONE (18:24)
[2021-03-04] MEDS ORDERED: DEXTROSE 50%-WATER - 25 GM/50 ML VIAL ONE (18:27)
[2021-03-04] MEDS ORDERED: MEROPENEM 1 GM VIAL (RESTRICTED TO ID) IVPB ONE (21:13)
[2021-03-04] MEDS ORDERED: DEXTROSE 5%-WATER 100 ML IVPB ONE (21:13)
[2021-03-04] MEDS: MEROPENEM 1 GM in DEXTROSE 5%-WATER 100 ML IVPB SCH (21:14)
[2021-03-04] MEDS: ATORVASTATIN CA 20 MG TABLET (FP) NGT SCH (21:15)
[2021-03-04] MEDS: CHLORHEXIDINE GLUCONATE 4% CLEANSER FOR DECOLONIZATION TP SCH (21:15)
[2021-03-05] MEDS: MIDAZOLAM IN 0.9 % SOD.CHLORID 100 MG/100 ML PLAST..BAG IVPB SCH ×3 (00:51→23:45)
[2021-03-05] MEDS: FENTANYL NS IVPB 500 MCG/100 ML BAG IVPB SCH ×3 (00:52→08:45)
[2021-03-05] MEDS: INSULIN SLIDING SCALE (NOVOLOG) 1 VIAL SQ SCH ×3 (06:51→16:54)
[2021-03-05] MEDS: COLLAGENASE CLOSTRIDIUM HIST. 30 GRAMS TUBE TP SCH (11:42)
[2021-03-05] MEDS: CALCIUM ACETATE 667 MG CAPSULE (FP) PO SCH ×3 (11:42→16:34)
[2021-03-05] MEDS: NOREPINEPHRINE BITARTRATE 16,000 MCG in SODIUM CHLORIDE 484 ML IV SCH ×2 (11:42→16:35)
[2021-03-05] MEDS: SILVER SULFADIAZINE 1% TOP CREAM 50 GM JAR TP SCH ×2 (11:42→23:00)
[2021-03-05] MEDS: AMINO ACIDS/PROTEIN HYDROLYS 30 ML LIQUID.PKT NGT SCH ×2 (11:42→16:34)
[2021-03-05 11:43] LABS: HEMATOCRIT 22.2 % (32.4-45.2); HEMOGLOBIN 7.6 GM/dL (10.7-15.3); MCH 28.5 pg (25.7-33.7); MCHC 34.3 g/dl (32.0-36.0); MEAN PLT VOLUME 10.4 fl (7.5-11.1); PLATELET COUNT 161 10^3/uL (134-434); RBC 2.67 M/mm3 (3.60-5.2); RDW 17.4 % (11.6-15.6); WHITE BLOOD COUNT 16.5 K/mm3 (4.0-10.0)
[2021-03-05] MEDS ORDERED: DEXTROSE 50%-WATER - 25 GM/50 ML VIAL IVPUSH PRN (12:00)
[2021-03-05 12:14] LABS: ALBUMIN 0.7 g/dl (3.4-5.0); CALCIUM 8.2 mg/dL (8.5-10.1)
[2021-03-05 12:18] LABS: BILIRUBIN,TOTAL 0.4 mg/dL (0.2-1); CREATININE 2.6 mg/dL (0.55-1.3); TOT PROT 4.5 g/dl (6.4-8.2)
[2021-03-05] MEDS: ASCORBIC ACID 500 MG/5 ML UNIT DOSE CUP NGT SCH (12:20)
[2021-03-05] MEDS: CYANOCOBALAMIN 1,000 MCG TABLET (FP) NGT SCH (12:20)
[2021-03-05] MEDS ORDERED: DEXTROSE 50%-WATER - 25 GM/50 ML VIAL ONE (12:24)
[2021-03-05] MEDS: MORPHINE SULFATE/0.9% NACL/PF 100 MG/100 ML BAG IVPB SCH (16:34)
[2021-03-05] MEDS ORDERED: POTASSIUM CHLORIDE ORAL LIQUID 20 MEQ/15 ML PO ONE (17:02)
[2021-03-05] MEDS ORDERED: PHENYLEPHRINE HCL 10 MG/1 ML SINGLE DOSE VIAL ONE (19:57)
[2021-03-05] MEDS ORDERED: MEROPENEM 1 GM VIAL (RESTRICTED TO ID) IVPB ONE (21:58)
[2021-03-05] MEDS ORDERED: DEXTROSE 5%-WATER 100 ML IVPB ONE (21:58)
[2021-03-05] MEDS: MEROPENEM 1 GM in DEXTROSE 5%-WATER 100 ML IVPB SCH (22:00)
[2021-03-05] MEDS: CHLORHEXIDINE GLUCONATE 4% CLEANSER FOR DECOLONIZATION TP SCH (23:00)
[2021-03-05] MEDS: ATORVASTATIN CA 20 MG TABLET (FP) NGT SCH (23:00)
[2021-03-06 05:42] LABS: ALLENS TEST POSITIVE; ARTERIAL BLD GAS O2 SATURATION 93.4 % (95-98); ARTERIAL BLOOD GAS BASE EXCESS -2.9 mmol/L (-2-2); ARTERIAL BLOOD GAS PO2 69.1 mmHg (80-100); ARTERIAL BLOOD GAS pH 7.368 (7.350-7.450); VENT MODE A/C; VENT RATE 22
[2021-03-06] MEDS: INSULIN SLIDING SCALE (NOVOLOG) 1 VIAL SQ SCH ×3 (06:51→16:30)
[2021-03-06] MEDS: MIDAZOLAM IN 0.9 % SOD.CHLORID 100 MG/100 ML PLAST..BAG IVPB SCH (06:51)
[2021-03-06 07:34] LABS: HEMATOCRIT 18.1 % (32.4-45.2); MCH 28.4 pg (25.7-33.7); MCHC 34.6 g/dl (32.0-36.0); PLATELET COUNT 141 10^3/uL (134-434); RBC 2.21 M/mm3 (3.60-5.2); RDW 17.6 % (11.6-15.6); WHITE BLOOD COUNT 11.6 K/mm3 (4.0-10.0)
[2021-03-06 07:44] LABS: CHLORIDE 103 mmol/L (98-107); SODIUM 138 mmol/L (136-145)
[2021-03-06 07:47] LABS: HEMOGLOBIN 6.3 GM/dL (10.7-15.3)
[2021-03-06 07:48] LABS: CALCIUM 7.8 mg/dL (8.5-10.1)
[2021-03-06 07:49] LABS: ALBUMIN 0.6 g/dl (3.4-5.0); ANION GAP 11 MMOL/L (8-16); CO2 23 mmol/L (21-32); GLUCOSE,RANDOM 105 mg/dL (74-106); MAGNESIUM 1.9 mg/dL (1.8-2.4)
[2021-03-06 07:52] LABS: CREATININE 3.2 mg/dL (0.55-1.3); PHOSPHOROUS 4.6 mg/dL (2.5-4.9); SGOT/AST 44 U/L (15-37); SGPT/ALT 28 U/L (13-61)
[2021-03-06 07:53] LABS: BILIRUBIN,TOTAL 0.3 mg/dL (0.2-1); TOT PROT 4.1 g/dl (6.4-8.2)
[2021-03-06 07:55] LABS: ALK PHOS 207 U/L (45-117)
[2021-03-06] MEDS: AMINO ACIDS/PROTEIN HYDROLYS 30 ML LIQUID.PKT NGT SCH ×2 (08:00→17:57)
[2021-03-06] MEDS: CALCIUM ACETATE 667 MG CAPSULE (FP) PO SCH ×3 (08:00→17:57)
[2021-03-06 08:09] LABS: BLOOD UREA NITROGEN 110.8 mg/dL (7-18)
[2021-03-06] MEDS: NOREPINEPHRINE BITARTRATE 16,000 MCG in SODIUM CHLORIDE 484 ML IV SCH ×2 (08:15→13:00)
[2021-03-06 08:51] LABS: ANISOCYTOSIS 1+; MACROCYTOSIS 1+; PLATELET ESTIMATE DECREASED
[2021-03-06] MEDS: SILVER SULFADIAZINE 1% TOP CREAM 50 GM JAR TP SCH (09:50)
[2021-03-06] MEDS: COLLAGENASE CLOSTRIDIUM HIST. 30 GRAMS TUBE TP SCH (09:50)
[2021-03-06] MEDS: CYANOCOBALAMIN 1,000 MCG TABLET (FP) NGT SCH (09:51)
[2021-03-06] MEDS: ASCORBIC ACID 500 MG/5 ML UNIT DOSE CUP NGT SCH (09:51)
[2021-03-06] MEDS: MORPHINE SULFATE/0.9% NACL/PF 100 MG/100 ML BAG IVPB SCH ×2 (11:45→13:06)
[2021-03-06] MEDS ORDERED: PT OWN MED DRAWER 7, Y5N ONE (13:15)
[2021-03-06 14:11] VITALS: BP 143/53; PULSE 98; TEMP 97.4
[2021-03-06] MEDS ORDERED: SODIUM CHLORIDE 250 ML IV PRN (15:32)
[2021-03-07] MEDS ORDERED: ALBUMIN HUMAN 25% 12.5 GM/50 ML VIAL IVPB SCH (15:45)
== END 2021-03-06 18:05 | disposition expired | DRG 870 ==
LOC: JER 12:44 → JERBED 14:20 → J4S 21:54 → JICU 02-21 02:57
PROVIDERS: ADMIT Internal Medicine; ATTEND Internal Medicine
PROC: XW033E5 Introduction of Remdesivir Anti-infective into Peripheral Vein, Percutaneous Approach, New Technology Group 5 (ICD-10-PCS; 2021-01-25)
PROC: 0DH67UZ Insertion of Feeding Device into Stomach, Via Natural or Artificial Opening (ICD-10-PCS; principal; 2021-01-31)
PROC: 30233N1 Transfusion of Nonautologous Red Blood Cells into Peripheral Vein, Percutaneous Approach (ICD-10-PCS; 2021-02-11)
PROC: 05HC33Z Insertion of Infusion Device into Left Basilic Vein, Percutaneous Approach (ICD-10-PCS; 2021-02-15)
PROC: 5A1955Z Respiratory Ventilation, Greater than 96 Consecutive Hours (ICD-10-PCS; 2021-02-21)
PROC: 05HN33Z Insertion of Infusion Device into Left Internal Jugular Vein, Percutaneous Approach (ICD-10-PCS; 2021-02-21)
PROC: B544ZZA Ultrasonography of Left Jugular Veins, Guidance (ICD-10-PCS; 2021-02-21)
PROC: 0BH17EZ Insertion of Endotracheal Airway into Trachea, Via Natural or Artificial Opening (ICD-10-PCS; 2021-02-21)
PROC: 05HM33Z Insertion of Infusion Device into Right Internal Jugular Vein, Percutaneous Approach (ICD-10-PCS; 2021-03-02)
PROC: B543ZZA Ultrasonography of Right Jugular Veins, Guidance (ICD-10-PCS; 2021-03-02)
PROC: 5A1D70Z Performance of Urinary Filtration, Intermittent, Less than 6 Hours Per Day (ICD-10-PCS; 2021-03-02)
PROC: 5A1D70Z Performance of Urinary Filtration, Intermittent, Less than 6 Hours Per Day (ICD-10-PCS; 2021-03-05)
DX: A41.89 Other specified sepsis (principal); I67.83 Posterior reversible encephalopathy syndrome; U07.1 COVID-19; R65.21 Severe sepsis with septic shock; J12.82 Pneumonia due to coronavirus disease 2019; J80 Acute respiratory distress syndrome; I69.359 Hemiplegia and hemiparesis following cerebral infarction affecting unspecified side; N17.9 Acute kidney failure, unspecified; E87.0 Hyperosmolality and hypernatremia; R64 Cachexia; N39.0 Urinary tract infection, site not specified; E87.2 Acidosis; I47.2 Ventricular tachycardia; I10 Essential (primary) hypertension; E78.5 Hyperlipidemia, unspecified; F03.90 Unspecified dementia, unspecified severity, without behavioral disturbance, psychotic disturbance, mood disturbance, and anxiety; D50.0 Iron deficiency anemia secondary to blood loss (chronic); Z68.32 Body mass index [BMI] 32.0-32.9, adult; R55 Syncope and collapse; D72.829 Elevated white blood cell count, unspecified; D64.9 Anemia, unspecified; I95.9 Hypotension, unspecified; I48.91 Unspecified atrial fibrillation; L89.150 Pressure ulcer of sacral region, unstageable; R79.89 Other specified abnormal findings of blood chemistry; R68.0 Hypothermia, not associated with low environmental temperature; E87.6 Hypokalemia
CPT/HCPCS: 36415; 36430; 36511; 36600; 49440; 71045-TC-FY; 74018-TC-FY; 76604; 76937; 80048; 80053; 80076; 81003; 82272; 82436; 82728; 82803; 82962; 83036; 83540; 83550; 83605; 83615; 83735; 83935; 84100; 84300; 84484; 84540; 85025; 85027; 85379; 85610; 85651; 85730; 86140; 86769; 86803; 86850; 86900; 86901; 86922; 87040; 87070; 87077; 87086; 87106; 87186; 87205; 87324; 87340; 87449; 93005; 93010; 93308; 94002; 99283-25; C9399; C9803; J0131; J1644; J3480; P9038; P9058; U0003; U0005